=== PATIENT | female | born 2000 | race Caucasian/White ===

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

== ENCOUNTER → 2022-08-30 | Outpatient (CLI) | payer OTHER, SELFPAY | END | disposition home or self-care (01) | PROVIDERS: PCP Family Medicine; Visit Provider Obstetrics & Gynecology | DX: Z34.00 Encounter for supervision of normal first pregnancy, unspecified trimester (principal) | CPT/HCPCS: 87086 ==

== ENCOUNTER → 2022-09-29 | Outpatient (CLI) | payer OTHER, SELFPAY ==
[2022-09-29 13:53] LABS: Absolute Lymphocyte Count 3.16 X10^3/uL (0.83-4.51); Absolute Neutrophil Count 7.4 X10^3/uL (2.0-7.7); Basophil# 0.04 X10^3/uL; Basophil% 0.3 % (0-1); Eosinophil# 0.53 X10^3/uL; Eosinophils% 4.5 % (0-5); Hematocrit 38.1 % (37-47); Hemoglobin 12.8 g/dL (12.0-15.0); Lymphocyte # 3.16 X10^3/ul (0.83-4.51); Lymphocyte % 26.5 % (19-41); Mean Corp Hgb Conc 33.6 g/dL (32-36); Mean Corpuscular Hgb 31.7 pg (27.0-32.0); Mean Corpuscular Volume 94.3 fL (81-99); Mean Platelet Vol. 9.8 fl (6.2-12.0); Monocyte# 0.79 X10^3/uL; Monocyte% 6.6 % (0-10); NRBC Flagged by Analyzer 0 % (0-5); Neutrophil # 7.35 X10^3/uL (2.7-7.7); Neutrophil % 61.8 % (47-70); Platelet Count 233 K/mm3 (150-450); RBC Distribution Width CV 12.7 % (11.6-14.6); RBC Distribution Width SD 43.3 fl (35.1-43.9); Red Blood Count 4.04 M/mm3 (4.2-5.4); White Blood Count 11.9 K/mm3 (4.4-11.0)
[2022-09-29 14:55] LABS: HIV - WCH Non-Reactive (Nonreactive); Hepatitis B Surface Antigen Non-Reactive (Nonreactive); Hepatitis C Antibody Non-Reactive (Nonreactive); Rubella IgG Reactive (Nonreactive); Syphilis Antibodies Non-reactive
== END | disposition home or self-care (01) ==
LOC: PAVLAB 13:29
PROVIDERS: PCP Family Medicine; Referring Provider Obstetrics & Gynecology; Visit Provider Obstetrics & Gynecology
DX: Z34.00 Encounter for supervision of normal first pregnancy, unspecified trimester (principal)
CPT/HCPCS: 36415; 85025; 86703; 86762; 86780; 86803; 86850; 86900; 86901; 87340

== ENCOUNTER → 2022-11-09 | Outpatient (CLI) | payer SELFPAY, OTHER ==
--- NOTE | 2022-11-09 12:33 | US_ITS ---
STUDY: SECOND AND THIRD TRIMESTER OBSTETRICAL ULTRASOUND REASON FOR EXAM: Female, 22 years old anatomy LMP: 06/26/2022 TECHNIQUE: Transabdominal and Transvaginal TECHNICAL QUALITY: Adequate. PRIOR ULTRASOUND: None. FINDINGS: There is a single intrauterine fetus. The fetus is in a breech presentation. There is demonstrated cardiac activity with a heart rate of 133 bpm. There is a normal amniotic fluid volume. The largest amniotic fluid pocket measures 4.1 cm x 3 cm. The amniotic fluid index (WHITNEY) is within normal limits. The placenta is posterior in location and is not low lying. There are Grade 0 placental changes. The cervix measures 3.8 cm in length. The bilateral adnexal regions are normal. BIOMETRY: BPD: 4.1 cm: 18 weeks, 3 days HC: 16.1 cm: 18 weeks, 6 days AC: 14.3 cm: 19 weeks, 5 days FL: 2.64 cm: 18 weeks, 0 days CI: 72% FL/BPD: 64% FL/HC: FL/AC: 18% HC/AC: 1.12 age by current US: 19 weeks, 0 days. TAWANNA by current US: 04/05/2023. Estimated weight: 263 grams, +/- 39 grams, 18 %. Age by LMP: 19 weeks, 3 days. TAWANNA by LMP: 04/02/2023. ANATOMY: Gender: Cranium: Normal lateral ventricles. Normal choroid plexus. Normal cerebellum. Normal cisterna magna. Normal face, nose and lips. Chest: Normal 4-chamber heart. Abdomen/Pelvis: Normal diaphragm. Normal stomach. Normal abdominal wall. Normal cord insertion. Normal 3 vessel cord. Normal kidneys. Normal bladder. Spine: Normal cervical spine. Normal thoracic spine. Normal lumbar spine. Normal sacrum. Extremities: Normal bilateral upper extremities. Normal bilateral lower extremities. IMPRESSION: Single live intrauterine gestation with a mean gestational age of 19 weeks. Electronically Signed: Arnulfo Angulo MD at 15:03 EST , STUDY: FIRST TRIMESTER OBSTETRICAL ULTRASOUND REASON FOR EXAM: Female, 22 years old . Cervical length. LMP: 06/26/2022 TECHNIQUE: Transvaginal TECHNICAL QUALITY: Adequate. PRIOR ULTRASOUND: None. FINDINGS: Cervical length measures 3.8 cm. US/OB Anatomy Scan IMPRESSION: Cervical length measures 3.8 cm. Electronically Signed: Arnulfo Angulo MD at 15:04 EST ,
== END | disposition home or self-care (01) ==
PROVIDERS: PCP Family Medicine; Visit Provider Obstetrics & Gynecology
DX: Z34.00 Encounter for supervision of normal first pregnancy, unspecified trimester (principal); Z3A.19 19 weeks gestation of pregnancy
CPT/HCPCS: 76805; 76817

== ENCOUNTER → 2023-01-09 | Outpatient (CLI) | payer OTHER, SELFPAY ==
[2023-01-09 10:51] LABS: Absolute Lymphocyte Count 1.83 X10^3/uL (0.83-4.51); Absolute Neutrophil Count 7.1 X10^3/uL (2.0-7.7); Basophil# 0.02 X10^3/uL; Basophil% 0.2 % (0-1); Eosinophils% 3.1 % (0-5); Hematocrit 36.8 % (37-47); Hemoglobin 12.1 g/dL (12.0-15.0); Lymphocyte # 1.83 X10^3/ul (0.83-4.51); Lymphocyte % 18.6 % (19-41); Mean Corp Hgb Conc 32.9 g/dL (32-36); Mean Corpuscular Hgb 33.1 pg (27.0-32.0); Mean Corpuscular Volume 100.5 fL (81-99); Mean Platelet Vol. 10.2 fl (6.2-12.0); Monocyte# 0.54 X10^3/uL; Monocyte% 5.5 % (0-10); NRBC Flagged by Analyzer 0 % (0-5); Neutrophil # 7.07 X10^3/uL (2.7-7.7); Platelet Count 230 K/mm3 (150-450); RBC Distribution Width CV 13.3 % (11.6-14.6); RBC Distribution Width SD 49.2 fl (35.1-43.9); Red Blood Count 3.66 M/mm3 (4.2-5.4); White Blood Count 9.8 K/mm3 (4.4-11.0)
[2023-01-09 11:24] LABS: Glucose Challenge Gest 1H 50g 91 mg/dL (70-140)
[2023-01-09 11:54] LABS: HIV - WCH Non-Reactive (Nonreactive); Syphilis Antibodies Non-reactive
== END | disposition home or self-care (01) ==
LOC: PAVLAB 10:30
PROVIDERS: PCP Family Medicine; Referring Provider Advanced Practice Midwife; Visit Provider Advanced Practice Midwife
DX: Z34.92 Encounter for supervision of normal pregnancy, unspecified, second trimester (principal); Z3A.25 25 weeks gestation of pregnancy
CPT/HCPCS: 36415; 82950; 85025; 86703; 86780

== ENCOUNTER → 2023-03-07 | Outpatient (CLI) | payer OTHER, SELFPAY | END | disposition home or self-care (01) | LOC: LABSPEC 14:00 | PROVIDERS: PCP Family Medicine; Referring Provider Obstetrics & Gynecology; Visit Provider Obstetrics & Gynecology | DX: Z34.93 Encounter for supervision of normal pregnancy, unspecified, third trimester (principal); Z3A.36 36 weeks gestation of pregnancy | CPT/HCPCS: 87081 ==

== ENCOUNTER 2023-04-06 18:10 | Inpatient (IN) | payer SELFPAY, OTHER ==
[2023-04-06] VITALS (25 sets, daily range): BP systolic 107–141; BP diastolic 58–84; PULSE 82–100; TEMP 36.6–37.4; O2SAT 93–98; BMI 26.9
[2023-04-06 18:06] LABS: ROM Internal Control Test YES-OK TO RESULT pt. (Internal QC); ROM Patient Test POSITIVE (Negative)
[2023-04-06 18:07] LABS: Record Kit Lot#, ROM+ K1374
--- NOTE | 2023-04-06 18:25 | HP.PCM.OB_ITS ---
HPI - General General Date of Admission: 04/06/23 HPI Narrative DELPHINE SHAH, is a 23 F who presents in early labor with SROM clear fluid no vb admits good fm irregular ctx Maternal Data Information TAWANNA Calculator Estimated Delivery Date Method Current WG Current Estimate 04/02/23 LMP (Certain) 40w 4d PFSH PFSH Medical History Family hx of colon cancer Home Medications vitamins no.163-iron bis-gly 20 mg-folate no.10 1 mg tablet (PNV Tabs 20-1) tab PO 08/18/22 [History Last Taken Unknown] esomeprazole magnesium 20 mg capsule,delayed release 20 mg PO DAILY 09/29/22 [History Last Taken Unknown] Allergy/AdvReac Type Severity Reaction Status Date / Time No Known Allergies Allergy Verified 04/06/23 08:01 Family History Grandfather Colon cancer, Onset Age: 78 Surgical History History of tonsillectomy and adenoidectomy Hx of wisdom tooth extraction Social History adopted: No household members: spouse housing: house current occupational status: employed current occupation: [employer] pets and animals: No history of recent travel: No sexually active: Yes Smoking Status: Never smoker alcohol intake: never substance use type: does not use well-balanced diet: daily or most days caffeine: Yes Type: coffee Number of servings: 1 eating out: rarely or never during the past year weight has: remained stable what type of physical activity do you participate in: walking frequency: 3-4 times per week duration: 30-45 minutes/day melisa/mandaen: [employer] seatbelt use: always do you feel safe at home: Yes additional social history: - Maksim- [place] History 1 Elective abortions Hx Para 0 Spontaneous abortions Hx # Term Pregnancies Ectopic pregnancies Hx # Pregnancies Multiple births # of living children Visit Details Expected Delivery Route/Plan Labor Preferences- CB/BF classes: BF class, encouraged in February labor support person: demi Schaeffer(mom), lillian(dad) labor intervention preferences: low intervention pain management options preferred: natural- tub room if possible cut cord/dad catch: no : yes PP control planned: discussed discussed possible routes of delivery and associated risks: if C/S-requesting skin to skin in OR special requests: Counter Top Assembler at labor/delivery Plans Covid status: declines Flu vaccine: declines Tdap vaccine: declines Rhogam: NA LARC form signed: yes Problem list reviewed and updated with the most current plan of care details and appropriate orders placed. Relevant counseling for the gestational age provided. Continue routine care and follow up unless otherwise noted in visit notes/problem list details OB Flowsheet Initial Weight: Not Recorded Date -?-?-?-?--?-?-?-?-?-?-?-?- EGA Weight BP Urine Prot -?-?-?-?-?-?-?-?-?-?-?-?- Glucose FHR FuHt Pres Dilation -?-?-?-?-?-?-?-?-?-?-?-?- Effaced St Visit Note 08/30/22 -?-?-?-?-?-?-?-?-?-?-?-?- 9w 2d 125 lb 2 oz 121/77 -?-?-?-?-?-?-?-?-?-?-?-?- 178 -?-?-?-?-?-?-?-?-?-?-?-?- JV- CRL consistn ent with LMP. 10/28/22 -?-?-?-?-?-?-?-?-?-?-?-?- 17w 5d 128 lb 6 oz 109/72 Nega tive -?-?-?-?-?-?-?-?-?-?-?-?- Negative 156 -?-?-?-?-?-?-?-?-?-?-?-?- LC-no ethan/chel leung has anatomy scan for [facility].doing well. 11/24/22 -?-?-?-?-?--?-?-?-?-?-?-?- 21w 4d 138 lb 109/77 Negative -?-?-?-?-?-?-?-?-?-?-?-?- Negative 140 -?-?-?-?-?-?-?-?-?-?-?-?- JV- anatomy ultr asound reviewed. no lof, vaginal bleeding or cramping. + fm. 12/20/22 -?-?-?-?-?-?-?-?-?-?-?-?- 25w 2d 140 lb 6 oz 119/79 Nega tive -?-?-?-?-?-?-?-?-?-?-?-?- Negative 140 25 -?-?-?-?-?-?-?-?-?-?-?-?- KW-no lof, vb, o r cramping. +FM. reports bilateral rib pain when resting but is better when up moving. Denies visual disturbances. doing well. plans to do glucose test at next visit. 01/09/23 -?-?-?-?-?-?-?-?-?-?-?-?- 28w 1d 142 lb 7 oz 102/68 Nega tive -?-?-?-?-?-?-?-?-?-?-?-?- Negative 137 27 -?-?-?-?-?-?-?-?-?-?-?-?- MH-No Vb, LOF. G ood FM. 28 wk labs, larc. Gianni tdap. 01/24/23 -?-?-?-?-?-?-?-?-?-?-?-?- 30w 2d 150 lb 122/81 122/81 -?-?-?-?-?-?-?-?-?-?-?-?- 132 39 -?-?-?-?-?-?-?-?-?-?-?-?- LC- no vb/lof/ct x. good fm. 02/07/23 -?-?-?-?-?-?-?-?-?-?-?-?- 32w 2d 148 lb 8 oz 107/83 Nega tive -?-?-?-?-?-?-?-?-?-?-?-?- Negative 145 31 -?-?-?-?-?-?-?-?-?-?-?-?- KW- No vb/lof/ct x. good fm. no concerns 02/21/23 -?-?-?-?-?-?-?-?-?-?-?-?- 34w 2d 150 lb 115/74 Negative -?-?-?-?-?-?-?-?-?-?-?-?- Negative 141 33 Cephalic -?-?-?-?-?-?-?-?-?-?-?-?- LC- no vb/ctx/lo f. good fm. no concerns today. 03/07/23 -?-?-?-?-?-?-?-?-?-?-?-?- 36w 2d 157 lb 4 oz 117/73 Nega tive -?-?-?-?-?-?-?-?-?-?-?-?- Negative 140 36 Cephalic 0 -?-?-?-?-?-?-?-?-?-?-?-?- SM- no vb lof go od fm n oreuglar ctx gbs today 03/16/23 -?-?-?-?-?-?-?-?-?-?-?-?- 37w 4d 156 lb 109/76 Positive -?-?-?-?-?-?-?-?-?-?-?-?- Negative 132 36 Cephalic -?-?-?-?-?-?-?-?-?-?-?-?- LC- no vb/ctx/lo f. good fm. biked 10 miles, concentrated urine. is PO hydrating. BP stable. PEC s/sx reviewed. 03/23/23 -?-?-?-?-?-?-?-?-?-?-?-?- 38w 4d 159 lb 107/72 Negative -?-?-?-?-?-?-?-?-?-?-?-?- Negative 128 38 Cephalic -?-?-?-?-?-?-?-?-?-?-?-?- LC- no lof/ctx/v b. good fm. reviewed iol vs expectant management, would like to continue past 41 weeks currently. LC- no lof/ctx/vb. good fm. reviewed iol vs expectant management, reviewed testing after 41 weeks. 03/30/23 -?-?-?-?-?-?-?-?-?-?-?-?- 39w 4d 155 lb 9.6 oz 116/75 -?-?-?-?-?-?-?-?-?-?-?-?- 120 39 Cephalic 1 -?-?-?-?-?-?-?-?-?-?-?-?- 40 -3 LC- no lof /vb/consistent ctx. good fm. membrane sweep today. 04/06/23 -?-?-?-?-?-?-?-?-?-?-?-?- 40w 4d 159 lb 6 oz 111/78 Nega tive -?-?-?-?-?-?-?-?-?-?-?-?- Negative 135 39 Cephalic 2 -?-?-?-?-?-?-?-?-?-?-?-?- 70 -2 LC- no lof /vb/ctx. good fm. IOL schedule for monday for 41 weeks. 04/06/23 -?-?-?-?-?-?-?-?-?-?-?-?- 40w 4d 157 lb 112/69 -?-?-?-?-?-?-?-?-?-?-?-?- -?-?-?-?-?-?-?-?-?-?-?-?- NST FHR Rate Baby A Baseline: 130 Variability:: Moderate Accelerations:: 15 x 15 Decelerations:: None NST Reactive:: Yes FHR Category:: Category I Uterine Activity:: irregular ROS Constitutional Constitutional: Reports systems reviewed and no addt'l complaints, except as documented Eyes Eyes: Denies change in vision ENT HEENT: Reports systems reviewed and no addt'l complaints, except as documented; Denies headache(s) Cardiovascular Cardiovascular: Reports systems reviewed and no addt'l complaints, except as documented; Denies chest pain or dyspnea Respiratory/Chest Respiratory/Chest: Reports systems reviewed and no addt'l complaints, except as documented Gastrointestinal Gastrointestinal: Reports systems reviewed and no addt'l complaints, except as documented; Denies abdominal pain Genitourinary Genitourinary: Reports systems reviewed and no addt'l complaints, except as documented, contractions Details: present (irregular) and movement Details: present; Denies dysuria or genital lesions Musculoskeletal Musculoskeletal: Reports systems reviewed and no addt'l complaints, except as documented Neurologic Neurologic: Reports systems reviewed and no addt'l complaints, except as documented Endocrine Endocrinology: Reports systems reviewed and no addt'l complaints, except as documented Vital Signs Vital Signs Vital Signs: 04/06/23 17:31 04/06/23 17:31 04/06/23 17:31 Temperature Temperature Source Tympanic Pulse Rate 86 Blood Pressure 112/69 BP Systolic 112 BP Diastolic 69 04/06/23 17:31 Temperature 97.9 F Temperature Source Pulse Rate Blood Pressure BP Systolic BP Diastolic Weight Weight: 157 lb Body Mass Index (BMI) 26.9 Physical Exam Const alert, oriented x3, no apparent distress and healthy appearing HEENT normocephalic and moist oral mucous membranes Head and Scalp: atraumatic Neck full ROM, no lymphadenopathy, supple and thyroid normal General: trachea midline Lymph Lymphatic: no lymphadenopathy noted Chest inspection of chest normal Resp normal respiratory effort Cardio regular rate GI normal to inspection, nondistended, normoactive bowel sounds, soft to palpation and non-tender Inspection: gravid external exam normal Manual OB Exam: estimated gestational size appropriate, presentation cephalic, dilated, effaced and station Extremity normal to inspection General Extremity: Negative for edema Skin no rashes or lesions noted Neuro no focal motor deficits and deep tendon reflexes 2+ bilaterally Motor Exam: strength 5/5 throughout and clonus absent Psych mental status grossly normal Labs Labs Labs: Blood Type A POSITIVE Antibody Screen NEGATIVE Hct 36.8 % (37-47) L Hgb 12.1 g/dL (12.0-15.0) Obstetrics US Syphilis Total Ab Non-reactive Rubella IgG Antibody Reactive (Nonreactive) Hep Bs Antigen Non-Reactive (Nonreactive) HIV 1&2 Antibody Non-Reactive (Nonreactive) Glucose 1 Hr 50 gm 91 mg/dL (70-140) Assessment & Plan (1) Supervision of normal first : COMMENT: [id number], TAWANNA 04/02/23, Maksim (2) : QUALIFIERS: Weeks of gestation: 40 weeks Qualified Code(s): Z3A.40 - 40 weeks gestation of COMMENT: GBS neg, declined NIPT & Carrier testing, 11/10 anatomy (3) Seasonal allergies: COMMENT: spring & summer PLAN: Plan srom clear fluid Patient presents ial exp management. Pain management: prefers minimal intervention. GBS neg. Management of any complications: none I have reviewed the [facility] and made any clinically relevant updates.
[2023-04-06 18:53] LABS: Absolute Lymphocyte Count 2.13 X10^3/uL (0.83-4.51); Absolute Neutrophil Count 7.9 X10^3/uL (2.0-7.7); Basophil# 0.03 X10^3/uL; Basophil% 0.3 % (0-1); Eosinophil# 0.31 X10^3/uL; Eosinophils% 2.7 % (0-5); Hematocrit 37.7 % (37-47); Hemoglobin 12.5 g/dL (12.0-15.0); Lymphocyte # 2.13 X10^3/ul (0.83-4.51); Lymphocyte % 18.8 % (19-41); Mean Corp Hgb Conc 33.2 g/dL (32-36); Mean Corpuscular Hgb 32.4 pg (27.0-32.0); Mean Corpuscular Volume 97.7 fL (81-99); Mean Platelet Vol. 11.1 fl (6.2-12.0); Monocyte# 0.99 X10^3/uL; Monocyte% 8.7 % (0-10); NRBC Flagged by Analyzer 0 % (0-5); Neutrophil # 7.85 X10^3/uL (2.7-7.7); Neutrophil % 69.1 % (47-70); Platelet Count 221 K/mm3 (150-450); RBC Distribution Width CV 12.8 % (11.6-14.6); RBC Distribution Width SD 45.4 fl (35.1-43.9); Red Blood Count 3.86 M/mm3 (4.2-5.4); White Blood Count 11.4 K/mm3 (4.4-11.0)
[2023-04-06 19:28] LABS: Syphilis Antibodies Non-reactive
[2023-04-06] MEDS: LACTATED RINGERS 500 ML 999 ML IV (21:50)
[2023-04-06] MEDS: Lactated Ringers 1,000 ML 200 ML IV (22:21)
[2023-04-06] MEDS: fentaNYL-bupivacaine (epidural) 100 ML BAG EPIDURAL (22:54)
[2023-04-06 23:18] LABS: Chlamydia Trachomatis by PCR Negative (Negative); Neisserai gonorrhoeae by PCR Negative (Negative); Probe Check PASS; Sample Adequacy Control PASS; Specimen Processing Control PASS
[2023-04-07] VITALS (18 sets, daily range): BP systolic 89–123; BP diastolic 50–70; PULSE 66–117; RESP 14–18; TEMP 36.3–37.8; O2SAT 92–99
[2023-04-07] MEDS: Oxytocin 15 Units/NS 250ml 15 UNITS/250 ML IV.SOLN 83 UNITS IV (00:31)
[2023-04-07] MEDS: Oxytocin 10 UNITS/ML Vial IM (00:32)
[2023-04-07] MEDS: Methylergonovine 0.2 MG/ML Ampul IM (00:40)
--- NOTE | 2023-04-07 00:49 | EX.PCM.OBRPT ---
Assessment & Plan (1) Supervision of normal first : COMMENT: [id number], TAWANNA 04/02/23, Maksim (2) : QUALIFIERS: Weeks of gestation: 40 weeks Qualified Code(s): Z3A.40 - 40 weeks gestation of COMMENT: GBS neg, declined NIPT & Carrier testing, 11/10 nl anatomy (3) Seasonal allergies: COMMENT: spring & summer (4) Active labor at term: (5) SROM (spontaneous rupture of membranes): (6) Vaginal delivery: COMMENT: SM IAL 40 boy [place] Maternal Data Information TAWANNA Calculator Estimated Delivery Date Method Current WG Current Estimate 04/02/23 LMP (Certain) 40w 5d Vaginal Delivery Operative Information Pre-Operative Diagnosis: see a/p diagnoses Post-Operative Diagnosis: same Surgery / Procedure Performed: Spontaneous Vaginal Delivery Type of Anesthesia: Epidural Special Medications: none Estimated Blood Loss: 200 Fluids Replaced: crystalloid Findings Description of Procedure: Patient began pushing and delivered the head in the TRENA presentation. The head was delivered atraumatically . The anterior and posterior shoulders delivered without complication followed by the rest of the infant and the infant was placed on the maternal abdomen. Delayed cord clamping was employed for approximately 60 seconds. Cord was clamped and cut and gentle traction was applied to the cord and the placenta delivered spontaneously immediately following it was noted to be intact with three-vessel cord. The perineum and vagina were inspected and noted to have a second degree perineal laceration which was repaired in the usual fashion with 3-0 vicryl rapide. . EBL was 500 with some mild atony treated with pitocin massage and methergine. Patient and tolerated delivery well. Amniotic Fluid Description: Clear Placental Delivery Description: Spontaneous Placenta Disposition: [facility] Cord Vessel Description: 3 Vessels Cord Entanglement: None Delayed Cord Clamping: Yes Post Vaginal Delivery Medications Given After Delivery: IV Pitocin Episiotomy Description: None Complication Complications: None Procedures Urinary/Genital [id number]: [id number] Vaginal Delivery global pk
--- NOTE | 2023-04-07 00:54 | DCINST_ITS ---
Discharge Instructions Diet Discharge Diet: No restrictions Activity Discharge Activity: Return to Normal Activity, May Drive, May Shower and May Take a Tub Bath (in 4 weeks) May resume sexual activity in: 6-8 weeks (after seen by OB provider) Weight Bearing Status: Full weight bearing Lifting Restrictions: none Dressing / Incision Call your doctor if you observe: Fever of 101 or Higher, Inability to urinate, Using more than 1 pad per hour (for more than 2 hours in a row or more), Shortness of breath, Dizziness, Chest pain and - (headache not controlled with tylenol, change in vision) Follow Up Care When: in 6 weeks for visit, call the office to make the appointment. If you had elevated blood pressures call the office to be seen within 1 week. Test Results: Test results from this visit will be discussed in further detail at your follow- up appointment, if applicable. Discharge Plan Admission Admit Date/Time: 04/06/23 18:10 Attending Provider: Sagrario Saenz Primary Care Provider: Hemanth Lott Discharge Orders/Prescriptions Prescriptions: No Action PNV Tabs 20-1 20 mg iron- 1 mg tablet PO esomeprazole magnesium 20 mg capsule,delayed release(DR/EC) 20 mg PO DAILY Referrals / Follow Up: Hemanth Lott MD [Primary Care Provider] -
[2023-04-07] MEDS: 0.9% Saline Lock 10 ML Syringe IV (03:35)
[2023-04-07] MEDS: Benzocaine/Lanolin/Aloe Vera 1 SPRAY EACH TOPICAL (12:46)
[2023-04-07] MEDS: Naproxen 500 MG Tablet PO (12:47)
[2023-04-07] MEDS: Acetaminophen 500 MG Tablet 1000 MG PO (17:06)
[2023-04-08 01:20] VITALS: BP 88/46; PULSE 75; RESP 16; TEMP 36.1; O2SAT 97
[2023-04-08 04:20] VITALS: BP 94/46; PULSE 65; RESP 17; TEMP 36.1; O2SAT 98
--- NOTE | 2023-04-08 08:14 | PCM.PN.OB ---
Subjective Subjective Patient doing well without complaints. Tolerating PO. Ambulating and voiding without difficulty. Feeding well. Denies chest pain, shortness of breath, calf pain/swelling, fevers, chills, lightheadedness. Objective Data Objective Data Vital Signs: Vital Signs Temp Pulse Resp BP Pulse Ox O2 Del Method 97 F L 65 17 94/46 L 98 Room Air 04/08/23 04:20 04/08/23 04:20 04/08/23 04:20 04/08/23 04:20 04/08/23 04:20 04/08/23 04:20 Oxygen Delivery Method Room Air Weight: 157 lb Body Mass Index (BMI) 26.9 Intake & Output: Intake and Output for Last 24 Hours 04/06/23 04/07/23 04/08/23 23:59 23:59 23:59 Intake Total 500 / 500 683.33 / 683.33 Output Total 200 / 200 1600 / 1600 Balance 300 / 300 -916.67 / -916.67 Lab / Micro Data Result Diagrams: 04/06/23 18:25 Physical Exam Const alert, oriented x3 and no apparent distress Lymph Lymphatic: no lymphadenopathy noted Resp normal respiratory effort, normal air movement and no retractions Cardio regular rate and regular rhythm GI normal to inspection, nondistended, normoactive bowel sounds GI Narrative: fundus 1 below u, firm. moderate lochia, no clots. Extremity normal to inspection and full ROM Skin no rashes or lesions noted and no wounds Neuro oriented x3 Psych mental status grossly normal Assessment & Plan (1) Vaginal delivery: COMMENT: IAL 40 boy [place] PLAN: s/p PPD # 1 1. routine post delivery care 2. breast feeding- support given 3. rh positive 4. rubella immune 5. d/c home today
[2023-04-08 09:11] VITALS: BP 100/58; PULSE 85; RESP 14; TEMP 36.3; O2SAT 98
== END 2023-04-08 12:15 | disposition home or self-care (01) | DRG 807 ==
LOC: WPOUT 18:23 → WP 18:23
PROVIDERS: Admitting Provider Obstetrics & Gynecology; PCP Family Medicine; Visit Provider Obstetrics & Gynecology
DX: O70.1 Second degree perineal laceration during delivery (principal); Z37.0 Single live birth; J30.2 Other seasonal allergic rhinitis; O48.0 Post-term pregnancy; Z3A.40 40 weeks gestation of pregnancy; O99.52 Diseases of the respiratory system complicating childbirth; Z80.0 Family history of malignant neoplasm of digestive organs
CPT/HCPCS: 59025; 59050; 84112; 85025; 86780; 86850; 86900; 86901; 87491; 87591; 99221; J7120; A4216; G0378

== ENCOUNTER → 2024-05-31 | Outpatient (CLI) | payer OTHER, SELFPAY ==
[2024-06-09 09:45] LABS: HPV Reflexed? NOT INDICATED
== END | disposition home or self-care (01) ==
LOC: LABSPEC 16:03
PROVIDERS: PCP Family Medicine; Referring Provider Registered Nurse; Visit Provider Registered Nurse
DX: Z12.4 Encounter for screening for malignant neoplasm of cervix (principal)
CPT/HCPCS: 88175; G0145

== ENCOUNTER → 2024-08-29 | Outpatient (CLI) | payer OTHER, SELFPAY ==
[2024-08-29 10:17] LABS: Absolute Lymphocyte Count 2.54 X10^3/uL (0.83-4.51); Absolute Neutrophil Count 4.8 X10^3/uL (2.0-7.7); Basophil# 0.02 X10^3/uL; Basophil% 0.2 % (0-1); Eosinophil# 0.25 X10^3/uL; Hematocrit 40.1 % (37-47); Lymphocyte # 2.54 X10^3/ul (0.83-4.51); Lymphocyte % 30.8 % (19-41); Mean Corp Hgb Conc 32.4 g/dL (32-36); Mean Corpuscular Hgb 30.7 pg (27.0-32.0); Mean Corpuscular Volume 94.8 fL (81-99); Mean Platelet Vol. 9.7 fl (6.2-12.0); Monocyte# 0.64 X10^3/uL; Monocyte% 7.7 % (0-10); NRBC Flagged by Analyzer 0 % (0-5); Neutrophil % 58.2 % (47-70); Platelet Count 265 K/mm3 (150-450); RBC Distribution Width SD 44.7 fl (35.1-43.9); Red Blood Count 4.23 M/mm3 (4.2-5.4); White Blood Count 8.3 K/mm3 (4.4-11.0)
[2024-08-29 11:20] LABS: HIV - WCH Non-Reactive (Nonreactive); Hepatitis B Surface Antigen Non-Reactive (Nonreactive); Hepatitis C Antibody Non-Reactive (Nonreactive); Rubella IgG Reactive (Nonreactive); Syphilis Antibodies Non-reactive
[2024-08-30 20:08] LABS: Chlamydia By Nucleic Acid AMP Negative (Negative); Gonococcus By Nucleic Acid AMP Negative (Negative)
[2024-09-04 16:50] LABS: HPV Reflexed? NOT INDICATED
== END | disposition home or self-care (01) ==
LOC: WOBLAB 09:25
PROVIDERS: Referring Provider Advanced Practice Midwife; Visit Provider Advanced Practice Midwife
DX: Z34.90 Encounter for supervision of normal pregnancy, unspecified, unspecified trimester (principal)
CPT/HCPCS: 36415; 85025; 86703; 86762; 86780; 86803; 86850; 86900; 86901; 87086; 87088; 87340; 87491; 87591; 88175; G0145

== ENCOUNTER → 2024-11-13 | Outpatient (CLI) | payer SELFPAY, OTHER ==
--- NOTE | 2024-11-13 12:03 | US_ITS ---
STUDY: SECOND AND THIRD TRIMESTER OBSTETRICAL ULTRASOUND REASON FOR EXAM: Female, 24 years old anatomy LMP: June 26, 2024. TECHNIQUE: Transabdominal and Transvaginal TECHNICAL QUALITY: Adequate. PRIOR ULTRASOUND: None. FINDINGS: There is a single intrauterine fetus. The fetus is in a breech presentation. There is demonstrated cardiac activity with a heart rate of 141 bpm. There is a normal amniotic fluid volume. The largest amniotic fluid pocket measures 4.2 cm. The amniotic fluid index (WHITNEY) is within normal limits. The placenta is anterior in location and is not low lying. There are Grade 0 placental changes. The cervix measures 4.1 cm in length. The bilateral adnexal regions are normal. BIOMETRY: BPD: 4.7 cm: 20 weeks, 2 days: 62% HC: 17.8 cm: 20 weeks, 2 days: 55% AC: 15.1 cm: 20 weeks, 2 days: 54% FL: 3.1 cm: 19 weeks, 5 days: 33% CI: 77% FL/BPD: 67% FL/HC: 18% FL/AC: 21% HC/AC: 1.18 age by current US: 20 weeks, 2 days. TAWANNA by current US: March 31, 2025. Estimated weight: 337 grams, +/- 50 grams, 51% %. Age by LMP: 20 weeks, 0 days. TAWANNA by LMP: April 02, 2025. ANATOMY: Gender: Indeterminant Cranium: Normal lateral ventricles. Normal choroid plexus. Normal cerebellum. Normal cisterna magna. Normal face, nose and lips. Chest: Normal 4-chamber heart. Abdomen/Pelvis: Normal diaphragm. Normal stomach. Normal abdominal wall. Normal cord insertion. Normal 3 vessel cord. Normal kidneys. Normal bladder. Spine: Normal cervical spine. Normal thoracic spine. Normal lumbar spine. The sacrum is not well visualized due to position. Extremities: Normal bilateral upper extremities. Normal bilateral lower extremities. US/OB Anatomy Scan IMPRESSION: Single live intrauterine gestation with mean gestational age of 20 weeks and 2 days. Electronically Signed: Arnulfo Angulo MD at 15:42 EST ,
== END | disposition home or self-care (01) ==
LOC: OPUS 12:02
PROVIDERS: PCP Family Medicine; Referring Provider Advanced Practice Midwife; Visit Provider Advanced Practice Midwife
DX: Z34.90 Encounter for supervision of normal pregnancy, unspecified, unspecified trimester (principal)
CPT/HCPCS: 76805

== ENCOUNTER → 2024-12-27 | Outpatient (CLI) | payer OTHER, SELFPAY ==
[2024-12-27 10:08] LABS: Absolute Lymphocyte Count 2.17 X10^3/uL (0.83-4.51); Absolute Neutrophil Count 5.2 X10^3/uL (2.0-7.7); Basophil# 0.02 X10^3/uL; Basophil% 0.2 % (0-1); Eosinophil# 0.12 X10^3/uL; Eosinophils% 1.5 % (0-5); Hematocrit 37.9 % (37-47); Hemoglobin 12.4 g/dL (12.0-15.0); Lymphocyte # 2.17 X10^3/ul (0.83-4.51); Lymphocyte % 27.1 % (19-41); Mean Corp Hgb Conc 32.7 g/dL (32-36); Mean Corpuscular Volume 97.7 fL (81-99); Mean Platelet Vol. 9.6 fl (6.2-12.0); Monocyte# 0.44 X10^3/uL; Monocyte% 5.5 % (0-10); NRBC Flagged by Analyzer 0 % (0-5); Neutrophil # 5.24 X10^3/uL (2.7-7.7); Neutrophil % 65.3 % (47-70); Platelet Count 211 K/mm3 (150-450); RBC Distribution Width CV 13.2 % (11.6-14.6); RBC Distribution Width SD 47.2 fl (35.1-43.9); Red Blood Count 3.88 M/mm3 (4.2-5.4)
[2024-12-27 11:39] LABS: Glucose Challenge Gest 1H 50g 136 mg/dL; HIV Nonreactive (Nonreactive); Syphilis Antibodies Nonreactive (Nonreactive)
== END | disposition home or self-care (01) ==
LOC: BWCLAB 09:52
PROVIDERS: PCP Family Medicine; Referring Provider Obstetrics & Gynecology; Visit Provider Obstetrics & Gynecology
DX: Z34.90 Encounter for supervision of normal pregnancy, unspecified, unspecified trimester (principal); N89.8 Other specified noninflammatory disorders of vagina
CPT/HCPCS: 36415; 82950; 85025; 86703; 86780; 87070; 87205

== ENCOUNTER → 2024-12-31 | Outpatient (CLI) | payer OTHER, SELFPAY ==
[2024-12-31 08:51] LABS: Glucose GTT-Gestation. Fasting 109 mg/dL (<105)
[2024-12-31 11:00] LABS: Glucose GTT-Gestational 1 Hr 160 mg/dL (<190)
[2024-12-31 12:49] LABS: Glucose GTT-Gestational 2 Hr 91 mg/dL (<165)
[2024-12-31 13:11] LABS: Glucose GTT-Gestational 3 Hr 56 L (<145)
== END | disposition home or self-care (01) ==
LOC: LAB 07:59
PROVIDERS: PCP Family Medicine; Referring Provider Registered Nurse; Visit Provider Registered Nurse
DX: O99.810 Abnormal glucose complicating pregnancy (principal); Z3A.00 Weeks of gestation of pregnancy not specified
CPT/HCPCS: 36415; 82951; 82952

== ENCOUNTER → 2025-03-12 | Outpatient (CLI) | payer OTHER, SELFPAY | END | disposition home or self-care (01) | LOC: LABSPEC 16:55 | PROVIDERS: PCP Family Medicine; Referring Provider Advanced Practice Midwife; Visit Provider Advanced Practice Midwife | DX: Z34.90 Encounter for supervision of normal pregnancy, unspecified, unspecified trimester (principal) | CPT/HCPCS: 87081 ==

== ENCOUNTER 2025-04-09 17:50 | Inpatient (IN) | payer SELFPAY, OTHER ==
[2025-04-09] VITALS (47 sets, daily range): BP systolic 106–129; BP diastolic 56–78; PULSE 69–100; RESP 16–18; TEMP 37.3–37.5; O2SAT 93–100; BMI 26.9
[2025-04-09 17:45] LABS: ROM Internal Control Test YES-OK TO RESULT pt. (Internal QC); ROM Patient Test Negative (Negative); Record Kit Lot#, ROM+ K3358
--- NOTE | 2025-04-09 18:08 | HP.PCM.OB_ITS ---
HPI - General General Date of Admission: 04/09/25 HPI Narrative DELPHINE SHAH, is a 25 y/o @ 41 weeks who presents to L&D because she thought her water broke. The nurse who checked her said she did not see fluid and she was 5 cm dilated. 50 minutes later her ROM + test came back negative, a water bag was felt and she was 6.5 cm dilated and 90% effaced. She would like to get in the tub and proceed with intermittent monitoring. She delivered quickly with her last child. Maternal Data Information TAWANNA Calculator Estimated Delivery Date Method Current WG Current Estimate 04/02/25 LMP (Certain) 41w 0d Other Estimates 04/02/25 Ultrasound #1 41w 0d PFSH PFSH Medical History Normal course Vaginal delivery Family hx of colon cancer Home Medications ?Medication ?Instructions ?Recorded ?Last Taken ?Type vitamins no.163-iron tab PO 08/18/22 Unknown History bis-gly 20 mg-folate no.10 1 mg tablet (PNV Tabs 20-1) Allergy/AdvReac Type Severity Reaction Status Date / Time No Known Allergies Allergy Verified 04/09/25 17:08 Family History Grandfather Colon cancer, Onset Age: 78 Father Hyperlipidemia Surgical History History of tonsillectomy and adenoidectomy Hx of wisdom tooth extraction Social History adopted: No household members: spouse and children housing: house number of children: 2 current occupational status: unemployed current occupation: [employer] current occupational exposures/hazards: No pets and animals: Yes pets and animals: dog(s) history of recent travel: No sexually active: Yes Smoking Status: Never smoker alcohol intake: never substance use type: does not use well-balanced diet: daily or most days caffeine: Yes Type: coffee Number of servings: 1 eating out: rarely or never during the past year weight has: remained stable what type of physical activity do you participate in: walking frequency: 1-2 times per week duration: 30-45 minutes/day melisa/hoahaoism: [employer] seatbelt use: always do you feel safe at home: Yes additional social history: : Maksim - [place] History 2 Elective abortions Hx Para 1 Spontaneous abortions Hx # Term Pregnancies 1 Ectopic pregnancies Hx # Pregnancies Multiple births # of living children 1 Past Pregnancies Del. Date Name GA/Weeks Outcome Route Bth Weight Infant Gen Labor Lgth Anesthesia Del Locatn Provider FOB 04/07/23 [place] 40 live - full term 7lbs 15oz Male e pidural [facility] Sagrario Schaeffer Delivery Date: 04/07/23 Last Updated by: Jeanne Ramirez see problem list for complications, and SM IAL 40 boy [place]. Visit Details Expected Delivery Route/Plan Labor Preferences- CB/BF classes: [] labor support person: [] labor intervention preferences: [] pain management options preferred: [] cut cord/dad catch: [] : [] PP control planned: [] discussed possible routes of delivery and associated risks: [] special requests: [] Plans Covid status: [] Flu vaccine: [] Tdap vaccine: [] Rhogam: [] LARC form signed: [] Problem list reviewed and updated with the most current plan of care details and appropriate orders placed. Relevant counseling for the gestational age provided. Continue routine care and follow up unless otherwise noted in visit notes/problem list details OB Flowsheet Initial Weight: 119 lb Date -?-?-?-?-?-?-?-?-?-?-?-?- EGA Weight BP Urine Prot -?-?-?-?-?-?-?-?-?-?-?-?- Glucose FHR FuHt Pres Dilation -?-?-?-?-?-?-?-?-?-?-?-?- Effaced St Visit Note 08/29/24 -?-?-?-?-?-?-?-?-?-?-?-?- 9w 1d 119 lb (+0 oz) 116/78 -?-?-?-?-?-?-?-?--?-?-?-?- 171 -?-?-?-?-?-?-?-?-?-?-?-?- KW- CRL cons wit h dates. Declines NIPT. 10/04/24 -?-?-?-?-?-?-?-?-?-?-?-?- 14w 2d 124 lb 8 oz (+5 lb 8 oz) 116/78 Negative -?-?-?-?-?-?-?-?-?-?-?-?- Negative 147 -?-?-?-?-?-?-?-?-?-?-?-?- KW- no vb/crampi ng. US ordered. movement and fht with US today 11/06/24 -?-?-?-?-?-?-?-?-?-?-?-?- 19w 0d 135 lb 8 oz (+16 lb 8 oz) 110/73 Negative -?-?-?-?-?-?-?-?-?-?-?-?- Negative 145 -?-?-?-?-?-?-?-?-?-?-?-?- KW- no vb/lof/ct x. good fm. US scheduled. 11/28/24 -?-?-?-?-?-?-?-?-?-?-?-?- 22w 1d 139 lb 8 oz (+20 lb 8 oz) 106/71 Negative -?-?-?-?-?-?-?-?-?-?-?-?- Negative 135 -?-?-?-?-?-?-?-?-?-?-?-?- .SM- no vb lof g ood fm nore uglar ctx, has vaginal yeast infection- will give terazole cream 12/27/24 -?-?-?-?-?-?-?-?-?-?-?-?- 26w 2d 144 lb (+25 lb) 109/76 Negative -?-?-?-?-?-?-?-?-?-?-?-?- Negative 138 26 -?-?-?-?-?-?-?-?-?-?-?-?- LC- no vb/ctx/lo f. increased vaginal d/c. speculum exam with thick green curdy discharge. culture collected. likely yeast. desires to start on monistat 7 otc. 01/13/25 -?-?-?-?-?-?-?-?-?-?-?-?- 28w 5d 147 lb 4 oz (+28 lb 4 oz) 114/77 Negative -?-?-?-?-?-?-?-?-?-?-?-?- Negative 130 29 Cephalic -?-?-?-?-?-?-?-?-?-?-?-?- JV- no lof, vagi nal bleeding, or dec fm. we discussed protein rich foods at bedtime. wants to do the rest of her visits at [facility] if possible. 01/29/25 -?-?-?-?-?-?-?-?-?-?-?-?- 31w 0d 150 lb 4 oz (+31 lb 4 oz) 107/73 Negative -?-?-?-?-?-?-?-?-?-?-?-?- Negative 135 31 -?-?-?-?-?-?-?-?-?-?-?-?- KW- no vb/lof/ct x. good fm. doing well but struggling with yeast infections. Monistat helps but does not totally take away. rx sent to pharmacy. 02/12/25 -?-?-?-?-?-?-?-?-?-?-?-?- 33w 0d 152 lb 2 oz (+33 lb 2 oz) 102/68 Negative -?-?-?-?-?-?-?-?-?-?-?-?- Negative 130 33 -?-?-?-?-?-?-?-?-?-?-?-?- KW- no vb/lof/ct x. good fm. no concerns today 02/24/25 -?-?-?-?-?-?-?-?-?-?-?-?- 34w 5d 151 lb 6 oz (+32 lb 6 oz) 111/75 Negative -?-?-?-?-?-?-?-?-?-?-?-?- Negative 135 35 -?-?-?-?-?-?-?--?-?-?-?-?- KW- no vb/lof/ct x. good fm. GBS next week. 03/12/25 -?-?-?-?-?-?-?-?-?-?-?-?- 37w 0d 152 lb 8 oz (+33 lb 8 oz) 104/72 Negative -?-?-?-?-?-?-?-?-?-?-?-?- Negative 130 37 Cephalic 1 -?-?-?-?-?-?-?-?-?-?-?-?- 60 -2 KW- no vb/ lof/ctx. good fm. GBS this week. 03/20/25 -?-?-?-?-?-?-?-?-?-?-?-?- 38w 1d 156 lb 2 oz (+37 lb 2 oz) 113/78 Negative -?-?-?-?-?-?-?-?-?-?-?-?- Negative 125 37 Cephalic -?-?-?-?-?-?-?-?-?-?-?-?- SM- no vb lof go od fm n oreuglar ctx 03/26/25 -?-?-?-?-?-?-?-?-?-?-?-?- 39w 0d 157 lb 6 oz (+38 lb 6 oz) 105/72 Negative -?-?-?-?-?-?-?-?-?-?-?-?- Negative 138 38 Cephalic 2 .5 -?-?-?-?-?-?-?-?-?-?-?-?- 70 -2 KW- no vb/ lof/regular ctx. good fm. requesting membrane sweep. 04/02/25 -?-?-?-?-?-?-?-?-?-?-?-?- 40w 0d 156 lb 2 oz (+37 lb 2 oz) 111/79 Negative -?-?-?-?-?-?-?-?-?-?-?-?- Negative 130 39 Cephalic 3 -?-?-?-?-?-?-?-?-?-?-?-?- 90 -1 KW- no vb/ lof/ctx. good fm. membrane sweep today. bulging bag felt with exam. requesting to past 41 weeks. growth US ordered and NST next week. ROS Constitutional Constitutional: Denies change in weight, fatigue, fever(s), headache(s), poor appetite or weakness Eyes Eyes: Denies blurry vision, change in vision, seeing flashes or spots in vision ENT HEENT: Denies dizziness, headache(s), loss taste/smell or sore throat Cardiovascular Cardiovascular: Denies chest pain, dizziness, dyspnea, irregular heart rhythm, leg edema, palpitations, rapid heart rate or vomiting Respiratory/Chest Respiratory/Chest: Denies chest tightness, cough, dyspnea or breast pain Gastrointestinal Gastrointestinal: Denies abdominal pain, anorexia, constipation, cramping, diarrhea, hemorrhoids, vomiting or weight changes Genitourinary Genitourinary: Denies dysuria, flank pain, genital lesions, genital pain, urinary frequency or urinary urgency Musculoskeletal Musculoskeletal: Denies back pain, difficulty walking, joint pain, limited range of motion, muscle cramps or numbness Integumentary Integumentary: Denies lesions or unusual bruising Neurologic Neurologic: Denies abnormal movements, abnormal speech, dizziness, numbness, seizure-like activity or syncope Psychiatric Psychiatric: Denies anxiety, behavioral changes, change in appetite, change in libido, cognitive impairment, confusion, depression, difficulty concentrating, hallucinations or suicidal thoughts Endocrine Endocrinology: Denies excessive sweating, polydipsia or polyuria Hematologic/Lymphatic Hematologic/Lymphatic: Denies easy bleeding, easy bruising or lymphadenopathy Allergic/Immunologic Allergic/Immunologic: Denies itchy eyes, lip swelling, seasonal rhinorrhea, rhinitis, throat swelling, tongue swelling, eczemia, wheezing or asthma Vital Signs Vital Signs Vital Signs: 04/09/25 17:20 04/09/25 17:20 04/09/25 17:20 Temperature 99.3 F H Temperature Source Temporal Pulse Rate Respiratory Rate 16 Blood Pressure BP Systolic BP Diastolic Pulse Ox 04/09/25 17:32 04/09/25 17:32 04/09/25 17:33 Temperature Temperature Source Pulse Rate 94 98 Respiratory Rate Blood Pressure 118/78 BP Systolic 118 BP Diastolic 78 Pulse Ox 04/09/25 17:33 Temperature Temperature Source Pulse Rate Respiratory Rate Blood Pressure BP Systolic BP Diastolic Pulse Ox 93 Weight Weight: 157 lb Body Mass Index (BMI) 26.9 Physical Exam Const alert, oriented x3, no apparent distress and healthy appearing General Appearance: cooperative; Negative for anxious HEENT normocephalic Face and Sinus: normal facial exam Eyes EOMs intact bilaterally and no scleral icterus General Eye: normal appearance of both eyes Neck full ROM and supple Lymph Lymphatic: no lymphadenopathy noted Chest Chest: abnormal inspection of the chest Resp normal respiratory effort Effort and Inspection: able to speak in complete sentences Cardio regular rate GI soft to palpation and non-tender Inspection: gravid Palpation: soft; Negative for tender external exam normal Narrative: cx 6.5/90/-1, membrane bag tight against the head. Amniotic Fluid: ROM+plus negative - Back/Spine no CVA tenderness Extremity normal to inspection, full ROM and no clubbing, cyanosis or edema General Extremity: Negative for calf tenderness or edema Skin Lesions: no lesions Rashes: no rashes Psych mental status grossly normal Labs Labs Labs: Blood Type A POSITIVE Antibody Screen NEGATIVE Hct 37.9 % (37-47) Hgb 12.4 g/dL (12.0-15.0) Obstetrics Ultrasound Syphilis Total Ab Nonreactive (Nonreactive) Rubella IgG Antibody Reactive (Nonreactive) Hep Bs Antigen Non-Reactive (Nonreactive) Hepatitis C Antibody Non-Reactive (Nonreactive) Chlamydia DNA ([place]) Negative (Negative) N.gonorrhoeae DNA ([place]) Negative (Negative) HIV 1&2 Antibody Nonreactive (Nonreactive) Glucose 1 Hr 50 gm 136 mg/dL Gest Glucose Tolerance MG/DL Rhogam given: No Assessment & Plan (1) Abnormal glucose affecting : COMMENT: passed 3 hour glucose (2) Supervision of normal : COMMENT: PRR, , TAWANNA 04/02/25, surprise PC: [place], : [place]sim (3) : QUALIFIERS: Weeks of gestation: 40 weeks Qualified Code(s): Z3A.40 - 40 weeks gestation of COMMENT: GBS neg, discussed genetic/carrier testing - undecided, normal anatomy PLAN: Plan Patient presents IAL, plan expectant management for , pitocin/AROM PRN if needed. Pain management: tub . GBS negative . Management of any complications: none I have reviewed the [facility] and made any clinically relevant updates.
[2025-04-09 18:27] LABS: Absolute Lymphocyte Count 3.36 X10^3/uL (0.83-4.51); Absolute Neutrophil Count 6.2 X10^3/uL (2.0-7.7); Basophil# 0.03 X10^3/uL; Basophil% 0.3 % (0-1); Eosinophil# 0.11 X10^3/uL; Hematocrit 38.5 % (37-47); Lymphocyte # 3.36 X10^3/ul (0.83-4.51); Lymphocyte % 32.1 % (19-41); Mean Corp Hgb Conc 33.8 g/dL (32-36); Mean Corpuscular Hgb 32.2 pg (27.0-32.0); Mean Corpuscular Volume 95.3 fL (81-99); Mean Platelet Vol. 11.9 fl (6.2-12.0); Monocyte# 0.75 X10^3/uL; Monocyte% 7.2 % (0-10); NRBC Flagged by Analyzer 0 % (0-5); Neutrophil % 59.1 % (47-70); Platelet Count 192 K/mm3 (150-450); RBC Distribution Width CV 13.2 % (11.6-14.6); RBC Distribution Width SD 45.9 fl (35.1-43.9); Red Blood Count 4.04 M/mm3 (4.2-5.4); White Blood Count 10.5 K/mm3 (4.4-11.0)
[2025-04-09] MEDS: 0.9% Saline Lock 10 ML Syringe IV (18:40)
[2025-04-09 19:07] LABS: Syphilis Antibodies Nonreactive (Nonreactive)
[2025-04-09] MEDS: Oxytocin 15 Units/NS 250ml 15 UNITS/250 ML IV.SOLN 83 UNITS IV (19:43)
[2025-04-09] MEDS: Lidocaine 1% (20 ml mdv) 20 ML Vial INFILT (19:46)
--- NOTE | 2025-04-09 19:55 | OB.VAGDELI_ITS ---
Assessment & Plan (1) Abnormal glucose affecting : COMMENT: passed 3 hour glucose (2) Supervision of normal : COMMENT: PRR, , TAWANNA 04/02/25, surprise PC: [place], : [place]sim (3) : QUALIFIERS: Weeks of gestation: 40 weeks Qualified Code(s): Z3A.40 - 40 weeks gestation of COMMENT: GBS neg, discussed genetic/carrier testing - undecided, normal anatomy Maternal Data Information TAWANNA Calculator Estimated Delivery Date Method Current WG Current Estimate 04/02/25 LMP (Certain) 41w 0d Other Estimates 04/02/25 Ultrasound #1 41w 0d Final TAWANNA: 04/02/25 Gestational age: 41 weeks Vaginal Delivery Maternal Presentation Maternal Presentation: Active Labor Type of Induction: Amniotomy Vaginal Delivery Information Procedure Performed: Spontaneous Vaginal Delivery Surgeon/Practitioner: Meenu Hernandez Date of Procedure: 04/09/25 Pre-Procedure Diagnosis: @ 41 weeks 0 days, active labor Post-Procedure Diagnosis: @ 41 weeks 0 days, active labor Type of anesthesia: Local with 1% Lidocaine Estimated Blood Loss: 200cc Time of Delivery: 19:39 Findings Description of procedure: Patient began pushing and delivered the head in the TRENA presentation. The head was delivered atraumatically and a loose nuchal cord ?1 was identified. Because the baby was delivering quickly, the anterior and posterior shoulders delivered without complication followed by the rest of the infant and the delivered through the cord. The was placed on the maternal abdomen. Delayed cord clamping was employed for approximately 60 seconds. Cord was clamped and cut and gentle traction was applied to the cord and the placenta delivered spontaneously immediately following it was noted to be intact with three-vessel cord. The perineum and vagina were inspected and noted to have a 1st degree perineal laceration. This was repaired after local 1% lidocaine applicaiton with a 2-0 vicryl. EBL was 200cc. Patient and infant tolerated delivery well. Procedure findings: viable male infant Reji Presentation: Vertex Amniotic Membrane Rupture Type: Artificial Amniotic Fluid Description: Clear Placental Delivery Description: Spontaneous Placenta Disposition: [facility] Specimen collected: No Cord Vessel Description: 3 Vessels Cord Entanglement: Around neck x 1, loose Nuchal Cord Compression: Without compression Infant A Gender: Male (1 minute): 8 (5 minute): 9 Delayed Cord Clamping: Yes Student Records Specialist sawmill supervisor: No Post Vaginal Deli Medications given after delivery: IV Pitocin Episiotomy Description: None Laceration: None Complication Complications: No Multi Select Codes Urinary/Genital Urinary/Genital CPT Codes: 89354 Vaginal Delivery Only
--- NOTE | 2025-04-09 20:01 | DCINST_ITS ---
Discharge Instructions Diet Discharge Diet: No restrictions DC O2, CPAP, BIPAP needs Home O2 Discharge instructions: No Dressing / Incision Discharge Activity: Return to Normal Activity, May Not Drive (while taking narcotic pain medications.) and May Shower May resume sexual activity in: 4-6 weeks Dressing / Incision Call your doctor if your incision/area has: Continuous Slow Oozing, Sudden Increased Bleeding, Increased Pain/ Swelling, Increased Redness and Foul Smelling Discharge Follow Up Care Please Follow Up With: Meenu Hernandez, When: Call [phone] to make an appointment with your doctor in 6 weeks. If you had elevated blood pressure or 4th degree laceration, you will need to be seen in 2 weeks. Test Results: Test results from this visit will be discussed in further detail at your follow- up appointment, if applicable. Discharge Plan Admission Admit Date/Time: 04/09/25 17:50 Attending Provider: Meenu Hernandez Primary Care Provider: Hemanth Lott Discharge Orders/Prescriptions Prescriptions: No Action PNV Tabs 20-1 20 mg iron- 1 mg tablet PO Referrals / Follow Up: Hemanth Lott MD [Primary Care Provider] -
--- OUTSIDE RECORDS SUMMARY | 2025-04-09 22:06 | XMS RPT_ITS | CCD ---
Author Organization [facility] Care Team Providers Care Kaiako Kura [place] Maori Name Role Phone Dr. Hemanth Lott Primary Care Provider Dr. Hemanth Lott Referring Provider Dr. Meenu Hernandez Attending Provider [phone] ULISSES Adams Attending Provider [phone] Dr. Hemanth Lott Primary Care Provider [phone] Dr. Hemanth Lott Referring Provider Dr. Meenu Hernandez Attending Provider [phone] ULISSES Adams Attending Provider [phone] ULISSES Garza Attending Provider [phone] Evelin MORSE, HANNA Ruano Attending Provider [phone] Dr. Hemanth Lott Primary Care Provider Dr. Hemanth Lott Referring Provider Dr. Meenu Hernandez Attending Provider [phone] ULISSES Adams Attending Provider [phone] Sagrario Saenz Attending Provider [phone] Dr. Hemanth Lott MD Referring Provider [phone] Jayshree Garza CNM Attending Provider [phone] Jayshree Garza CNM Referring Provider [phone] Dr. Hemanth Lott MD Primary Care Provider Dr. Sagrario Saenz MD Attending Provider [phone] Rebekah Adams CNM Attending Provider [phone] Letty TERRY, Dr. Zabala Referring Provider Bryan GTZ, Rebekah Referring Provider [phone] Greg GTZ, Jayshree Attending Provider Oren TERRY, Dr. Hemanth Fox Referring Provider [phone] Audrey Pozo DO, Dr. Corrigan Attending Provider Oren TERRY, Dr. Hemanth Fox Primary Care Provider Greg GTZ, Jayshree Attending Provider [phone] Greg GTZ, Jayshree Referring Provider Schinner, Hemanth E Primary Care Unavailable Schinner, Hemanth E Referring Unavailable Jayshree Garza Attending Unavailable Schinner, Hemanth E Referring Unavailable Schinner, Hemanth E Primary Care Unavailable Meenu Hernandez Attending Unavailabl e Schinner, Hemanth E Primary Care Unavailable Yina Eli Attending Unavailable Schinner, Hemanth E Referring Unavailable Schinner, Hemanth E Primary Care Unavailable Jayshree Garza Attending Unavailable AdamsRebekah Attending Unavailable Schinner, Hemanth E Primary Care Unavailable Schinner, Hemanth E Referring Unavailable Jayshree Garza Attending Unavailable Schinner, Hemanth E Primary Care Unavailable Sagrario Saenz Attending Unavailable Schinner, Hemanth E Referring Unavailable Rebekah Adams Attending Unavailable Schinner, Hemanth E Referring Unavailable Schinner, Hemanth E Primary Care Unavailable Jayshree Garza Referring Unavailable Jayshree Garza Attending Unavailable Schinner, Hemanth E Primary Care Unavailable Schinner, Hemanth E Referring Unavailable Jayshree Garza Attending Unavailable Rebekah Adams Referring Unavailable Rebekah Adams Attending Unavailable Schinner, Hemanth E Primary Care Unavailable Schinner, Hemanth E Primary Care Unavailable Schinner, Hemanth E Referring Unavailable Sagrario Saenz Attending Unavailable Sagrario Saenz Attending Unavailable Schinner, Hemanth E Primary Care Unavailable Sagrario Saenz Referring Unavailable Rebekah Adams Referring Unavailable Rebekah Adams Attending Unavailable Schinner, Hemanth E Primary Care Unavailable Schinner, Hemanth E Primary Care Unavailable Jayshree Garza Attending Unavailable Jayshree Garza Referring Unavailable Schinner, Hemanth E Primary Care Unavailable Jayshree Garza Referring Unavailable Jayshree Garza Attending Unavailable Schinner, Hemanth E Referring Unavailable Jayshree Garza Attending Unavailable Schinner, Hemanth E Primary Care Unavailable Schinner, Hemanth E Referring Unavailable Jayshree Garza Attending Unavailable Hemanth Lott Referring Unavailable Jayshree Garza Attending Unavailable Hemanth Lott Primary Care Unavailable Hemanth Lott Referring Unavailable Jayshree Garza Attending Unavailable Hemanth Lott Referring Unavailable Hemanth Lott Primary Care Unavailable Jayshree Garza Attending Unavailable Medications Current Medications Medication Drug Class(es) Dates Sig (Normalized) Sig (Original) esomeprazole 20 mg delayed release oral capsule (9 sources) Proton Pump Inhibitor Start: 09-29-2022 take 1 capsule by mouth once daily Esomeprazole Magnesium 20 mg capsule,delayed release(DR/EC) Active 20 mg PO DAILY September 29, 2022 1:00am Iron (10 sources) Start: 08-18-2022 Pnv No.165-Ozgs-Sqxtoa No.10 (Pnv Tabs 20-1) 20 mg iron- 1 mg tablet Active {tbl} PO August 18, 2022 12:00am Start: 08-18-2022 Pnv No.163-Iro n-Folate No.10 (Pnv Tabs 20-1) 20 mg iron- 1 mg tablet Active TABLET PO August 18, 2022 12:00am Start: 08-18-2022 Pnv No.163-Iro n-Folate No.10 (Pnv Tabs 20-1) 20 mg iron- 1 mg tablet Active TABLET PO August 17, 2022 11:00pm miconazole nitrate 20 mg/ml vaginal cream (3 sources) Azole Antifungal Start: 01-29-2025 Miconazole Ni trate 2 % cream Active 1 NMA VAGINAL AT BEDTIME 45 7 January 29, 2025 12:00am Completed/Discontinued Medications Medication Drug Class(es) Dates Sig (Normalized) Sig (Original) famotidine 20 mg oral tablet (10 sources) Histamine-2 Receptor Antagonist Start: 07-11-2020 End: 07-18-2020 take 1 tablet by mouth twice daily Famotidine 20 MG tablet Discontinued 20 mg PO TWICE A DAY 14 7 July 11, 2020 12:00am July 17, 2020 12:00am July 18, 2020 12:03am ondansetron 4 mg disintegrating oral tablet (10 sources) Serotonin-3 Receptor Antagonist Start: 07-11-2020 End: 08-18-2022 take 1 tablet by mouth every eight hours as needed for nausea Ondansetron 4 MG tablet Discontinued 4 mg PO EVERY 8 HOURS NEEDED as needed for Nausea July 11, 2020 12:00am August 18, 2022 3:35pm terconazole 4 mg/ml vaginal cream (5 sources) Azole Antifungal Start: 11-28-2024 End: 12-05-2024 Terconazole 0.4 % cream Discontinued 1 NMA VAGINAL AT BEDTIME 45 7 November 28, 2024 1:00am December 04, 2024 1:00am December 05, 2024 1:10am Problems Active Problems Problem Classification Problem Date Documented Da te Episodic/Chronic Diabetes or abnormal glucose tolerance complicating ; childbirth; or the puerperium (20 sources) Abnormal glucose level; Translations: [Abnormal glucose complicating ] Onset: 04-02-2025 01-01-2025 Episodic Comment on above: passed 3 hour glucos e Mycoses (13 sources) Mycosis; Translations: [Candidiasis, unspecified] Onset: 02-24-2025 01-29-2025 Episodic Other and delivery including normal (20 sources) Normal ; Translations: [Encounter for supervision of normal first , unspecified trimester] Onset: 04-02-2025 Episodic Comment on above: SM IAL 40 boy [place] [id number], TAWANNA 04/02/23, Maksim PRR, , TAWANNA 04/02, surprise PC: [place], : Maksim Discussed genetic/ca rrier testing - undecided, normal anatomy GBS neg, declined NI PT & Carrier testing, 11/10 nl anatomy GBS neg, discussed g enetic/carrier testing - undecided, normal anatomy Other upper respiratory disease (10 sources) Seasonal allergy; Translations: [Other seasonal allergic rhinitis] 08-18-2022 Chronic Comment on above: spring & summer Other upper respiratory disease (16 sources) Other seasonal allergic rhinitis; Translations: [Allergic rhinitis, cause unspecified] Chronic Polyhydramnios and other problems of amniotic cavity (5 sources) Spontaneous rupture of membranes 04-07-2023 Episodic Residual codes; unclassified (1 source) 40 weeks gestation of ; Translations: [40 weeks gestation of ] Onset: 04-02-2025 Episodic Residual codes; unclassified (1 source) 39 weeks gestation of ; Translations: [39 weeks gestation of ] Onset: 03-26-2025 Episodic Residual codes; unclassified (1 source) 38 weeks gestation of ; Translations: [38 weeks gestation of ] Onset: 03-20-2025 Episodic Residual codes; unclassified (1 source) 34 weeks gestation of ; Translations: [34 weeks gestation of ] Onset: 02-24-2025 Episodic Residual codes; unclassified (1 source) 31 weeks gestation of ; Translations: [31 weeks gestation of ] Onset: 01-29-2025 Episodic Past or Other Problems Problem Classification Problem Date Documented Da te Episodic/Chronic Other screening for suspected conditions (not mental disorders or infectious disease) (1 source) Encounter for screening for malignant neoplasm of cervix; Translations: [Encounter for screening for malignant neoplasm of cervix] Onset: 07-04-2024 Episodic Residual codes; unclassified (1 source) 22 weeks gestation of ; Translations: [22 weeks gestation of ] Onset: 11-28-2024 Episodic Residual codes; unclassified (1 source) 19 weeks gestation of ; Translations: [19 weeks gestation of ] Onset: 11-06-2024 Episodic Residual codes; unclassified (1 source) 14 weeks gestation of ; Translations: [14 weeks gestation of ] Onset: 10-04-2024 Episodic Residual codes; unclassified (1 source) 9 weeks gestation of ; Translations: [9 weeks gestation of ] Onset: 08-29-2024 Episodic Results Test Name Value Interpretation Reference Range Facility Automation Design Engineer Office Visit Reporton 04-02-2025 Automation Design Engineer Office Visit Report [facility]'s [address], [address] [address] OFFICE VISIT Date of Service: 04/02/25 MR#: [id number] Acct: [id number] Name: DELPHINE SHAH Rep #: [id number] : 2000 Provider: ULISSES Osborn ams Age/Sex: 25/F Location: [facility] Status: Signed Intake Vital Signs 03/20/25 15:00 03/26/25 09:34 04/02/25 08:56 04/02/25 09:03 Height 5 ft 4 in 5 ft 4 in 5 ft 4 in 5 ft 4 in Weight: 156 lb 2 oz BMI 26.8 BP 111/79 Intake Visit Reasons: 40 wk ob *happy due date Cleaner Touch Up Worker Required: No Is patient in pain?: No Allergies No Known Allergies Allergy (Verified 04/02/25 08:55) Medications ???Medication ???Instructions ???Recorded ???Confirmed ???Type vitamins no.163-iron tab PO 08/18/22 04/02/25 History bis-gly 20 mg-folate no.10 1 mg tablet (PNV Tabs 20-1) esomeprazole magnesium 20 mg 20 mg PO DAILY 09/29/22 04/02/25 H istory capsule,delayed release miconazole nitrate 2 % vaginal 1 appful vaginal QHS 7 days #45 04/02/25 Rx cream grams Last Menstrual Period: 06/26/24 Do you think of yourself as: straight/heterosexual Current gender identity: female Zika: Zika virus screening: Negative : No PFSH PFSH Medical History Normal course Vaginal delivery Family hx of colon cancer Surgical History History of tonsillectomy and adenoidectomy Hx of wisdom tooth extraction Family History Grandfather Colon cancer, Onset Age: 78 Father Hyperlipidemia Social History adopted: No household members: spouse and children housing: house number of children: 2 current occupational status: unemployed current occupation: [employer] current occupational exposures/hazards: No pets and animals: Yes pets and animals: dog(s) history of recent travel: No sexually active: Yes do you think of yourself as: straight/heterosexual current gender identity: female Smoking Status: Never smoker alcohol intake: never substance use type: does not use well-balanced diet: daily or most days caffeine: Yes Type: coffee Number of servings: 1 eating out: rarely or never during the past year weight has: remained stable what type of physical activity do you participate in: walking frequency: 1-2 times per week duration: 30-45 minutes/day 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 Date Name GA/Weeks Outcome Route Bth Weight Gen Labor Lgth Anesthesia Del [place] Provider FOB 04/07/23 [place] 40 live - full term 7lbs 15oz Male epidural [facility] Sagrario Schaeffer Delivery Date: 04/07/23 Last Updated by: Jeanne Ramirez see problem list for complications, and SM IAL 40 boy [place]. HPI 40 wk ob *happy due date Details: DELPHINE SHAH is a 25 year old who presents for routine OB visit. OB Visit TAWANNA Calculator Estimated Delivery Date Method Current WG Current Estimate 04/02/25 LMP (Certain) 40w 0d Other Estimates 04/02/25 Ultrasound #1 40w 0d Expected Delivery Route/Plan Labor Preferences- CB/BF classes: [] labor support person: [] labor intervention preferences: [] pain management options preferred: [] cut cord/dad catch: [] : [] PP control planned: [] discussed possible routes of delivery and associated risks: [] special requests: [] Specific Issue/Plans Covid status: [] Flu vaccine: [] Tdap vaccine: [] Rhogam: [] LARC form signed: [] Problem list reviewed and updated with the most current plan of care details and appropriate orders placed. Relevant counseling for the gestational age provided. Continue routine care and follow up unless otherwise noted in visit notes/problem list details Initial Weight: 119 lb Date -???-???-???-???-???- ???-???-???-???-???-? ??-???- EGA Weight BP Urine Prot -???-???-???-???-???- ???-???-???-???-???-? ??-???- Glucose FHR FuHt Pres Dilation -???-???-???-???-???- ???-???-???-???-???-? ??-???- Effaced St Visit Note 08/29/24 -???-???-???-???-???- ???-???-???-???-???-? ??-???- 9w 1d 119 lb (+0 oz) 116/78 -???-???-???-???-???- ???-???-???-???-???-? ??-???- 171 -???-???-???-???-???- ???-???-???-???-???-? ??-???- KW- CRL cons with dates. Declines NIPT. 10/04/24 -???-???-???-??? (more content not included)... Normal [facility] Automation Design Engineer Office Visit Reporton 03-26-2025 Automation Design Engineer Office Visit Report [facility] [address] [place] [address], [address] [place] [address] OFFICE VISIT Date of Service: 03/26/25 MR#: [id number] Acct: [id number] Name: DELPHINE SHAH Rep #: [id number] : 2000 Provider: ULISSES Osborn ams Age/Sex: 25/F Location: [facility] Status: Signed Intake Vital Signs 02/24/25 09:39 03/20/25 15:00 03/26/25 09:29 03/26/25 09:34 Height 5 ft 4 in 5 ft 4 in 5 ft 4 in 5 ft 4 in Weight: 157 lb 6 oz BMI 27.0 BP 105/72 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 Is patient in pain?: No Allergies No Known Allergies Allergy (Verified 03/26/25 09:29) Medications ???Medication ???Instructions ???Recorded ???Confirmed ???Type vitamins no.163-iron tab PO 08/18/22 03/26/25 History bis-gly 20 mg-folate no.10 1 mg tablet (PNV Tabs 20-1) esomeprazole magnesium 20 mg 20 mg PO DAILY 09/29/22 03/26/25 H istory capsule,delayed release miconazole nitrate 2 % vaginal 1 appful vaginal QHS 7 days #45 03/26/25 Rx cream grams Last Menstrual Period: 06/26/24 Zika: Zika virus screening: Negative : No PFSH PFSH Medical History Normal course Vaginal delivery Family hx of colon cancer Surgical History History of tonsillectomy and adenoidectomy Hx of wisdom tooth extraction Family History Grandfather Colon cancer, Onset Age: 78 Father Hyperlipidemia Social History adopted: No household members: spouse and children housing: house number of children: 2 current occupational status: unemployed current occupation: [employer] current occupational exposures/hazards: No pets and animals: Yes pets and animals: dog(s) history of recent travel: No sexually active: Yes Smoking Status: Never smoker alcohol intake: never substance use type: does not use well-balanced diet: daily or most days caffeine: Yes Type: coffee Number of servings: 1 eating out: rarely or never during the past year weight has: remained stable what type of physical activity do you participate in: walking frequency: 1-2 times per week duration: 30-45 minutes/day melisa/anabaptist: [employer] seatbelt use: always do you feel safe at home: Yes additional social history: : [place] History 2 Elective abortions Hx Para 1 Spontaneous abortions Hx # Term Pregnancies 1 Ectopic pregnancies Hx # Pregnancies Multiple births # of living children 1 Past Pregnancies Del. Date Name GA/Weeks Outcome Route Bth Weight Infant Gen Labor Lgth Anesthesia Del Locatn Provider FOB 04/07/23 [place] 40 live - full term 7lbs 15oz Male epidural [facility] Sagrario Schaeffer Delivery Date: 04/07/23 Last Updated by: Jeanne Ramirez see problem list for complications, and IAL 40 boy [place]. HPI 39 wk ob Details: DELPHINE SHAH is a 25 year old who presents for routine OB visit. OB Visit TAWANNA Calculator Estimated Delivery Date Method Current WG Current Estimate 04/02/25 LMP (Certain) 39w 0d Other Estimates 04/02/25 Ultrasound #1 39w 0d Expected Delivery Route/Plan Labor Preferences- CB/BF classes: [] labor support person: [] labor intervention preferences: [] pain management options preferred: [] cut cord/dad catch: [] : [] PP control planned: [] discussed possible routes of delivery and associated risks: [] special requests: [] Specific Issue/Plans Covid status: [] Flu vaccine: [] Tdap vaccine: [] Rhogam: [] LARC form signed: [] Problem list reviewed and updated with the most current plan of care details and appropriate orders placed. Relevant counseling for the gestational age provided. Continue routine care and follow up unless otherwise noted in visit notes/problem list details Initial Weight: 119 lb Date -???-???-???-???-???- ???-???-???-???-???-? ??-???- EGA Weight BP Urine Prot -???-???-???-???-???- ???-???-???-???-???-? ??-???- Glucose FHR FuHt Pres Dilation -???-???-???-???-???- ???-???-???-???-???-? ??-???- Effaced St Visit Note 08/29/24 -???-???-???-???-???- ???-???-???-???-???-? ??-???- 9w 1d 119 lb (+0 oz) 116/78 -???-???-???-???-???- ???-???-???-???-???-? ??-???- 171 -???-???-???-???-???- ???-???-???-???-???-? ??-???- KW- CRL cons with dates. Declines NIPT. 10/04/24 -???-???-???-???-???- ???-???-???-???-???-? ??-???- 14w 2d 124 lb 8 oz (+5 lb 8 oz) 116/78 Negative -???-???-???-???-???- ???-???-???-???-???-? ??-???- Negative 147 -???-???-???-???-???- ???-???-???-???-???-? ??-???- (more content not included)... Normal [facility] Laboratory - Chemistry and C hemistry - challengeOrdered By: Sagrario Saenz on 03-20-2025 Glucose Ql (U) Negative [facility] Laboratory - UrinalysisOrder ed By: Sagrario Saenz on 03-20-2025 Protein Ql (U) Negative [facility] Automation Design Engineer Office Visit Reporton 03-20-2025 Automation Design Engineer Office Visit Report [facility]'s [address], [address] [place] [address] OFFICE VISIT Date of Service: 03/20/25 MR#: [id number] Acct: [id number] Name: DELPHINE SHAH Rep #: [id number] : 2000 Provider: Dr. Sagrario freeman MD Age/Sex: 25/F Location: [facility] Status: Signed Intake Vital Signs 02/24/25 09:39 03/12/25 10:00 03/20/25 14:57 03/20/25 15:00 Height 5 ft 4 in 5 ft 4 in 5 ft 4 in 5 ft 4 in Weight: 156 lb 2 oz BMI 26.8 BP 113/78 Intake Visit Reasons: 37 wk ob Cleaner Touch Up Worker Required: No Is patient in pain?: No Feel stressed/tense/nervou s/anxious/difficulty sleeping: not at all Allergies No Known Allergies Allergy (Verified 03/20/25 14:58) Medications ???Medication ???Instructions ???Recorded ???Confirmed ???Type vitamins no.163-iron tab PO 08/18/22 03/20/25 History bis-gly 20 mg-folate no.10 1 mg tablet (PNV Tabs 20-1) esomeprazole magnesium 20 mg 20 mg PO DAILY 09/29/22 03/20/25 H istory capsule,delayed release miconazole nitrate 2 % vaginal 1 appful vaginal QHS 7 days #45 03/20/25 Rx cream grams Last Menstrual Period: 06/26/24 Zika: Zika virus screening: Negative : No PFSH PFSH Medical History Normal course Vaginal delivery Family hx of colon cancer Surgical History History of tonsillectomy and adenoidectomy Hx of wisdom tooth extraction Family History Grandfather Colon cancer, Onset Age: 78 Father Hyperlipidemia Social History adopted: No household members: spouse and children housing: house number of children: 2 current occupational status: unemployed current occupation: [employer] current occupational exposures/hazards: No pets and animals: Yes pets and animals: dog(s) history of recent travel: No sexually active: Yes Smoking Status: Never smoker alcohol intake: never substance use type: does not use well-balanced diet: daily or most days caffeine: Yes Type: coffee Number of servings: 1 eating out: rarely or never during the past year weight has: remained stable what type of physical activity do you participate in: walking frequency: 1-2 times per week duration: 30-45 minutes/day melisa/anabaptist: [employer] seatbelt use: always do you feel safe at home: Yes additional social history: : [place] Cristal [place] History 2 Elective abortions Hx Para 1 Spontaneous abortions Hx # Term Pregnancies 1 Ectopic pregnancies Hx # Pregnancies Multiple births # of living children 1 Past Pregnancies Del. Date Name GA/Weeks Outcome Route Bth Weight Gen Labor Lgth Anesthesia Del [place] Provider FOB 04/07/23 [place] 40 live - full term 7lbs 15oz Male epidural [facility] Sagrario Schaeffer Delivery Date: 04/07/23 Last Updated by: Jeanne Ramirez see problem list for complications, and SM IAL 40 boy [place]. HPI 37 wk ob Details: DELPHINE SHAH is a 25 year old who presents for routine OB visit. OB Visit TAWANNA Calculator Estimated Delivery Date Method Current WG Current Estimate 04/02/25 LMP (Certain) 38w 1d Other Estimates 04/02/25 Ultrasound #1 38w 1d Expected Delivery Route/Plan Labor Preferences- CB/BF classes: [] labor support person: [] labor intervention preferences: [] pain management options preferred: [] cut cord/dad catch: [] : [] PP control planned: [] discussed possible routes of delivery and associated risks: [] special requests: [] Specific Issue/Plans Covid status: [] Flu vaccine: [] Tdap vaccine: [] Rhogam: [] LARC form signed: [] Problem list reviewed and updated with the most current plan of care details and appropriate orders placed. Relevant counseling for the gestational age provided. Continue routine care and follow up unless otherwise noted in visit notes/problem list details Initial Weight: 119 lb Date -???-???-???-???-???- ???-???-???-???-???-? ??-???- EGA Weight BP Urine Prot -???-???-???-???-???- ???-???-???-???-???-? ??-???- Glucose FHR FuHt Pres Dilation -???-???-???-???-???- ???-???-???-???-???-? ??-???- Effaced St Visit Note 08/29/24 -???-???-???-???-???- ???-???-???-???-???-? ??-???- 9w 1d 119 lb (+0 oz) 116/78 -???-???-???-???-???- ???-???-???-???-???-? ??-???- 171 -???-???-???-???-???- ???-???-???-???-???-? ??-???- KW- CRL cons with dates. Declines NIPT. 10/04/24 -???-???-???-???-???- ???-???-???-???-???-? ??-???- 14w 2d 124 lb 8 oz (+5 lb 8 oz) Negative -???-???-???-???-???- ???-??? (more content not included)... Normal [facility] Rule out Beta Strep (Grp. B) on 03-14-2025 HIRAM Group B Beta Streptococcus is not isolated. Normal [facility] Comment on above: Performed By: #### M [id number] #### [facility] [address] [place] [address] [place], [address] Laboratory - Chemistry and C hemistry - challengeOrdered By: Jayshree Garza on 03-12-2025 Glucose Ql (U) Negative [facility] Laboratory - UrinalysisOrder ed By: Jayshree Garza on 03-12-2025 Protein Ql (U) Negative [facility] Automation Design Engineer Office Visit Reporton 03-12-2025 Automation Design Engineer Office Visit Report [facility]'[address], [address] [place] [address] OFFICE VISIT Date of Service: 03/12/25 MR#: [id number] Acct: [id number] Name: DELPHINE SHAH Rep #: [id number] : 2000 Provider: ULISSES Osborn ams Age/Sex: 25/F Location: [facility] Status: Signed Intake Vital Signs 12/27/24 09:50 02/24/25 09:39 03/12/25 09:56 03/12/25 10:00 Height 5 ft 4 in 5 ft 4 in 5 ft 4 in 5 ft 4 in Weight: 152 lb 8 oz BMI 26.2 BP 104/72 Intake Visit Reasons: 36 wk ob Cleaner Touch Up Worker Required: No Is patient in pain?: No Allergies No Known Allergies Allergy (Verified 03/12/25 09:55) Medications ???Medication ???Instructions ???Recorded ???Confirmed ???Type vitamins no.163-iron tab PO 08/18/22 03/12/25 History bis-gly 20 mg-folate no.10 1 mg tablet (PNV Tabs 20-1) esomeprazole magnesium 20 mg 20 mg PO DAILY 09/29/22 03/12/25 H istory capsule,delayed release miconazole nitrate 2 % vaginal 1 appful vaginal QHS 7 days #45 03/12/25 Rx cream grams Last Menstrual Period: 06/26/24 Zika: Zika virus screening: Negative : No PFSH PFSH Medical History Normal course Vaginal delivery Family hx of colon cancer Surgical History History of tonsillectomy and adenoidectomy Hx of wisdom tooth extraction Family History Grandfather Colon cancer, Onset Age: 78 Father Hyperlipidemia Social History adopted: No household members: spouse and children housing: house number of children: 2 current occupational status: unemployed current occupation: [employer] current occupational exposures/hazards: No pets and animals: Yes pets and animals: dog(s) history of recent travel: No sexually active: Yes Smoking Status: Never smoker alcohol intake: never substance use type: does not use well-balanced diet: daily or most days caffeine: Yes Type: coffee Number of servings: 1 eating out: rarely or never during the past year weight has: remained stable what type of physical activity do you participate in: walking frequency: 1-2 times per week duration: 30-45 minutes/day 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 Date Name GA/Weeks Outcome Route Bth Weight Gen Labor Lgth Anesthesia Del Locatn Provider FOB 04/07/23 [place] 40 live - full term 7lbs 15oz Male epidural [facility] Sagrario Schaeffer Delivery Date: 04/07/23 Last Updated by: Jeanne Ramirez see problem list for complications, and SM IAL 40 boy [place]. HPI 36 wk ob Details: DELPHINE SHAH is a 25 year old who presents for routine OB visit. OB Visit TAWANNA Calculator Estimated Delivery Date Method Current WG Current Estimate 04/02/25 LMP (Certain) 37w 0d Other Estimates 04/02/25 Ultrasound #1 37w 0d Expected Delivery Route/Plan Labor Preferences- CB/BF classes: [] labor support person: [] labor intervention preferences: [] pain management options preferred: [] cut cord/dad catch: [] : [] PP control planned: [] discussed possible routes of delivery and associated risks: [] special requests: [] Specific Issue/Plans Covid status: [] Flu vaccine: [] Tdap vaccine: [] Rhogam: [] LARC form signed: [] Problem list reviewed and updated with the most current plan of care details and appropriate orders placed. Relevant counseling for the gestational age provided. Continue routine care and follow up unless otherwise noted in visit notes/problem list details Initial Weight: 119 lb Date -???-???-???-???-???- ???-???-???-???-???-? ??-???- EGA Weight BP Urine Prot -???-???-???-???-???- ???-???-???-???-???-? ??-???- Glucose FHR FuHt Pres Dilation -???-???-???-???-???- ???-???-???-???-???-? ??-???- Effaced St Visit Note 08/29/24 -???-???-???-???-???- ???-???-???-???-???-? ??-???- 9w 1d 119 lb (+0 oz) 116/78 -???-???-???-???-???- ???-???-???-???-???-? ??-???- 171 -???-???-???-???-???- ???-???-???-???-???-? ??-???- KW- CRL cons with dates. Declines NIPT. 10/04/24 -???-???-???-???-???- ???-???-???-???-???-? ??-???- 14w 2d 124 lb 8 oz (+5 lb 8 oz) 116/78 Negative -???-???-???-???-???- ???-???-???-???-???-? ??-???- Negative 147 -???-???-???-???-???- ???-???-???-???-???-? ??-???- (more content not included)... Normal [facility] Screening beta-hemolytic Str eptococcus cultureOrdered By: Jayshree Garza on 03-12-2025 Beta-hemolytic Streptococcus culture Group B Beta Streptococcus is not isolated. [facility] Laboratory - Chemistry and C hemistry - challengeOrdered By: Jayshree Garza on 02-24-2025 Glucose Ql (U) Negative [facility] Laboratory - UrinalysisOrder ed By: Jayshree Garza on 02-24-2025 Protein Ql (U) Negative [facility] Automation Design Engineer Office Visit Reporton 02-24-2025 Automation Design Engineer Office Visit Report [facility]'s [address], [address] [place] [address] OFFICE VISIT Date of Service: 02/24/25 MR#: [id number] Acct: [id number] Name: DELPHINE SHAH Rep #: [id number] : 2000 Provider: ULISSES Osborn ams Age/Sex: 25/F Location: [facility] Status: Signed Intake Vital Signs 12/27/24 09:50 02/12/25 09:40 02/24/25 09:34 02/24/25 09:39 Height 5 ft 4 in 5 ft 4 in 5 ft 4 in 5 ft 4 in Weight: 151 lb 6 oz BMI 25.9 BP 111/75 Intake Visit Reasons: 34 wk ob Cleaner Touch Up Worker Required: No Is patient in pain?: No Allergies No Known Allergies Allergy (Verified 02/24/25 09:33) Medications ???Medication ???Instructions ???Recorded ???Confirmed ???Type vitamins no.163-iron tab PO 08/18/22 02/24/25 History bis-gly 20 mg-folate no.10 1 mg tablet (PNV Tabs 20-1) esomeprazole magnesium 20 mg 20 mg PO DAILY 09/29/22 02/24/25 H istory capsule,delayed release miconazole nitrate 2 % vaginal 1 appful vaginal QHS 7 days #45 02/24/25 Rx cream grams Last Menstrual Period: 06/26/24 Zika: Zika virus screening: Negative : No PFSH PFSH Medical History Normal course Vaginal delivery Family hx of colon cancer Surgical History History of tonsillectomy and adenoidectomy Hx of wisdom tooth extraction Family History Grandfather Colon cancer, Onset Age: 78 Father Hyperlipidemia Social History adopted: No household members: spouse and children housing: house number of children: 2 current occupational status: unemployed current occupation: [employer] current occupational exposures/hazards: No pets and animals: Yes pets and animals: dog(s) history of recent travel: No sexually active: Yes Smoking Status: Never smoker alcohol intake: never substance use type: does not use well-balanced diet: daily or most days caffeine: Yes Type: coffee Number of servings: 1 eating out: rarely or never during the past year weight has: remained stable what type of physical activity do you participate in: walking frequency: 1-2 times per week duration: 30-45 minutes/day 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 Date Name GA/Weeks Outcome Route Bth Weight Infant Gen Labor Lgth Anesthesia Del Locatn Provider FOB 04/07/23 [place] 40 live - full term 7lbs 15oz Male epidural [facility] Sagrario Letty Schaeffer Delivery Date: 04/07/23 Last Updated by: Jeanne Ramirez see problem list for complications, and SM IAL 40 boy [place]. HPI 34 wk ob Details: DELPHINE SHAH is a 25 year old who presents for routine OB visit. OB Visit TAWANNA Calculator Estimated Delivery Date Method Current WG Current Estimate 04/02/25 LMP (Certain) 34w 5d Other Estimates 04/02/25 Ultrasound #1 34w 5d Expected Delivery Route/Plan Labor Preferences- CB/BF classes: [] labor support person: [] labor intervention preferences: [] pain management options preferred: [] cut cord/dad catch: [] : [] PP control planned: [] discussed possible routes of delivery and associated risks: [] special requests: [] Specific Issue/Plans Covid status: [] Flu vaccine: [] Tdap vaccine: [] Rhogam: [] LARC form signed: [] Problem list reviewed and updated with the most current plan of care details and appropriate orders placed. Relevant counseling for the gestational age provided. Continue routine care and follow up unless otherwise noted in visit notes/problem list details Initial Weight: 119 lb Date -???-???-???-???-???- ???-???-???-???-???-? ??-???- EGA Weight BP Urine Prot -???-???-???-???-???- ???-???-???-???-???-? ??-???- Glucose FHR FuHt Pres Dilation -???-???-???-???-???- ???-???-???-???-???-? ??-???- Effaced St Visit Note 08/29/24 -???-???-???-???-???- ???-???-???-???-???-? ??-???- 9w 1d 119 lb (+0 oz) 116/78 -???-???-???-???-???- ???-???-???-???-???-? ??-???- 171 -???-???-???-???-???- ???-???-???-???-???-? ??-???- KW- CRL cons with dates. Declines NIPT. 10/04/24 -???-???-???-???-???- ???-???-???-???-???-? ??-???- 14w 2d 124 lb 8 oz (+5 lb 8 oz) 116/78 Negative -???-???-???-???-???- ???-???-???-???-???-? ??-???- Negative 147 -???-???-???-???-???- ???-???-???-???-???-? ??-???- (more content not included)... Normal [facility] Laboratory - Chemistry and C hemistry - challengeOrdered By: Jayshree Garza on 02-12-2025 Glucose Ql (U) Negative [facility] Laboratory - UrinalysisOrder ed By: Jayshree Garza on 02-12-2025 Protein Ql (U) Negative [facility] Automation Design Engineer Office Visit Reporton 02-12-2025 Automation Design Engineer Office Visit Report [facility] [address], [address] [place] [address] OFFICE VISIT Date of Service: 02/12/25 MR#: [id number] Acct: [id number] Name: DELPHINE SHAH Rep #: [id number] : 2000 Provider: ULISSES Osborn ams Age/Sex: 25/F Location: [facility] [place] Status: Signed Intake Vital Signs 12/27/24 09:50 01/29/25 08:28 02/12/25 09:36 02/12/25 09:40 Height 5 ft 4 in 5 ft 4 in 5 ft 4 in 5 ft 4 in Weight: 152 lb 2 oz BMI 26.1 BP 102/68 Intake Visit Reasons: 32 wk ob Cleaner Touch Up Worker Required: No Is patient in pain?: No Allergies No Known Allergies Allergy (Verified 02/12/25 09:35) Medications ???Medication ???Instructions ???Recorded ???Confirmed ???Type vitamins no.163-iron tab PO 08/18/22 02/12/25 History bis-gly 20 mg-folate no.10 1 mg tablet (PNV Tabs 20-1) esomeprazole magnesium 20 mg 20 mg PO DAILY 09/29/22 02/12/25 H istory capsule,delayed release miconazole nitrate 2 % vaginal 1 appful vaginal QHS 7 days #45 02/12/25 Rx cream grams Last Menstrual Period: 06/26/24 Zika: Zika virus screening: Negative : No PFSH PFSH Medical History Normal course Vaginal delivery Family hx of colon cancer Surgical History History of tonsillectomy and adenoidectomy Hx of wisdom tooth extraction Family History Grandfather Colon cancer, Onset Age: 78 Father Hyperlipidemia Social History adopted: No household members: spouse and children housing: house number of children: 2 current occupational status: unemployed current occupation: [employer] current occupational exposures/hazards: No pets and animals: Yes pets and animals: dog(s) history of recent travel: No sexually active: Yes Smoking Status: Never smoker alcohol intake: never substance use type: does not use well-balanced diet: daily or most days caffeine: Yes Type: coffee Number of servings: 1 eating out: rarely or never during the past year weight has: remained stable what type of physical activity do you participate in: walking frequency: 1-2 times per week duration: 30-45 minutes/day 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 Date Name GA/Weeks Outcome Route Bth Weight Gen Labor Lgth Anesthesia Del Locatn Provider FOB 04/07/23 [place] 40 live - full term 7lbs 15oz Male epidural [facility] Sagrario Letty Schaeffer Delivery Date: 04/07/23 Last Updated by: Jeanne Ramirez see problem list for complications, and IAL 40 boy [place]. HPI 32 wk ob Details: DELPHINE SHAH is a 25 year old who presents for routine OB visit. OB Visit TAWANNA Calculator Estimated Delivery Date Method Current WG Current Estimate 04/02/25 LMP (Certain) 33w 0d Other Estimates 04/02/25 Ultrasound #1 33w 0d Expected Delivery Route/Plan Labor Preferences- CB/BF classes: [] labor support person: [] labor intervention preferences: [] pain management options preferred: [] cut cord/dad catch: [] : [] PP control planned: [] discussed possible routes of delivery and associated risks: [] special requests: [] Specific Issue/Plans Covid status: [] Flu vaccine: [] Tdap vaccine: [] Rhogam: [] LARC form signed: [] Problem list reviewed and updated with the most current plan of care details and appropriate orders placed. Relevant counseling for the gestational age provided. Continue routine care and follow up unless otherwise noted in visit notes/problem list details Initial Weight: 119 lb Date -???-???-???-???-???- ???-???-???-???-???-? ??-???- EGA Weight BP Urine Prot -???-???-???-???-???- ???-???-???-???-???-? ??-???- Glucose FHR FuHt Pres Dilation -???-???-???-???-???- ???-???-???-???-???-? ??-???- Effaced St Visit Note 08/29/24 -???-???-???-???-???- ???-???-???-???-???-? ??-???- 9w 1d 119 lb (+0 oz) 116/78 -???-???-???-???-???- ???-???-???-???-???-? ??-???- 171 -???-???-???-???-???- ???-???-???-???-???-? ??-???- KW- CRL cons with dates. Declines NIPT. 10/04/24 -???-???-???-???-???- ???-???-???-???-???-? ??-???- 14w 2d 124 lb 8 oz (+5 lb 8 oz) 116/78 Negative -???-???-???-???-???- ???-???-???-???-???-? ??-???- Negative 147 -???-???-???-???-???- ???-???-???-???-???-? ??-???- (more content not included)... Normal [facility] Laboratory - Chemistry and C hemistry - challengeOrdered By: Jayshree Garza on 01-29-2025 Glucose Ql (U) Negative [facility] Laboratory - UrinalysisOrder ed By: Jayshree Garza on 01-29-2025 Protein Ql (U) Negative [facility] Automation Design Engineer Office Visit Reporton 01-29-2025 Automation Design Engineer Office Visit Report [facility]'s [address], [address] [place] [address] OFFICE VISIT Date of Service: 01/29/25 MR#: [id number] Acct: [id number] Name: DELPHINE SHAH Rep #: [id number] : 2000 Provider: ULISSES Osborn ams Age/Sex: 24/F Location: [facility] [place] Status: Signed Intake Vital Signs 08/29/24 09:07 01/13/25 08:59 01/29/25 08:27 01/29/25 08:28 Height 5 ft 4 in 5 ft 4 in 5 ft 4 in 5 ft 4 in Weight: 150 lb 4 oz BMI 25.7 BP 107/73 Intake Visit Reasons: 30 WK OB Cleaner Touch Up Worker Required: No Is patient in pain?: No Allergies No Known Allergies Allergy (Verified 01/29/25 08:27) Medications ???Medication ???Instructions ???Recorded ???Confirmed ???Type vitamins no.163-iron tab PO 08/18/22 01/29/25 History bis-gly 20 mg-folate no.10 1 mg tablet (PNV Tabs 20-1) esomeprazole magnesium 20 mg 20 mg PO DAILY 09/29/22 01/29/25 H istory capsule,delayed release miconazole nitrate 2 % vaginal 1 appful vaginal QHS 7 days #45 01/29/25 Rx cream grams Last Menstrual Period: 06/26/24 Zika: Zika virus screening: Negative : No PFSH PFSH Medical History Normal course Vaginal delivery Family hx of colon cancer Surgical History History of tonsillectomy and adenoidectomy Hx of wisdom tooth extraction Family History Grandfather Colon cancer, Onset Age: 78 Father Hyperlipidemia Social History adopted: No household members: spouse and children housing: house number of children: 2 current occupational status: unemployed current occupation: [employer] current occupational exposures/hazards: No pets and animals: Yes pets and animals: dog(s) history of recent travel: No sexually active: Yes Smoking Status: Never smoker alcohol intake: never substance use type: does not use well-balanced diet: daily or most days caffeine: Yes Type: coffee Number of servings: 1 eating out: rarely or never during the past year weight has: remained stable what type of physical activity do you participate in: walking frequency: 1-2 times per week duration: 30-45 minutes/day 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 Date Name GA/Weeks Outcome Route Bth Weight Gen Labor Lgth Anesthesia Del Locatn Provider FOB 04/07/23 [place] 40 live - full term 7lbs 15oz Male epidural [facility] Sagrario Saenz [place] Delivery Date: 04/07/23 Last Updated by: Jeanne Ramirez see problem list for complications, and SM IAL 40 boy [place]. HPI 30 WK OB Details: DELPHINE SHAH is a 24 year old who presents for routine OB visit. OB Visit TAWANNA Calculator Estimated Delivery Date Method Current WG Current Estimate 04/02/25 LMP (Certain) 31w 0d Other Estimates 04/02/25 Ultrasound #1 31w 0d Expected Delivery Route/Plan Labor Preferences- CB/BF classes: [] labor support person: [] labor intervention preferences: [] pain management options preferred: [] cut cord/dad catch: [] : [] PP control planned: [] discussed possible routes of delivery and associated risks: [] special requests: [] Specific Issue/Plans Covid status: [] Flu vaccine: [] Tdap vaccine: [] Rhogam: [] LARC form signed: [] Problem list reviewed and updated with the most current plan of care details and appropriate orders placed. Relevant counseling for the gestational age provided. Continue routine care and follow up unless otherwise noted in visit notes/problem list details Initial Weight: 119 lb Date -???-???-???-???-???- ???-???-???-???-???-? ??-???- EGA Weight BP Urine Prot -???-???-???-???-???- ???-???-???-???-???-? ??-???- Glucose FHR FuHt Pres Dilation -???-???-???-???-???- ???-???-???-???-???-? ??-???- Effaced St Visit Note 08/29/24 -???-???-???-???-???- ???-???-???-???-???-? ??-???- 9w 1d 119 lb (+0 oz) 116/78 -???-???-???-???-???- ???-???-???-???-???-? ??-???- 171 -???-???-???-???-???- ???-???-???-???-???-? ??-???- KW- CRL cons with dates. Declines NIPT. 10/04/24 -???-???-???-???-???- ???-???-???-???-???-? ??-???- 14w 2d 124 lb 8 oz (+5 lb 8 oz) 116/78 Negative -???-???-???-???-???- ???-???-???-???-???-? ??-???- Negative 147 -???-???-???-???-???- ???-???-???-???-???-? ??-???- (more content not included)... Normal [facility] Laboratory - Chemistry and C hemistry - challengeOrdered By: Meenu Pozo on 01-13-2025 Glucose Ql (U) Negative [facility] Laboratory - UrinalysisOrder ed By: Meenu Pozo on 01-13-2025 Protein Ql (U) Negative [facility] Automation Design Engineer Office Visit Reporton 01-13-2025 Automation Design Engineer Office Visit Report [facility]'s [address], [address] [place] [address] OFFICE VISIT Date of Service: 01/13/25 MR#: [id number] Acct: [id number] Name: DELPHINE SHAH Rep #: [id number] : 2000 Provider: Dr. Meenu Lamar DO Age/Sex: 24/F Location: [facility] [place] Status: Signed Intake Vital Signs 08/29/24 09:07 10/04/24 11:59 12/27/24 09:50 01/13/25 08:58 01/13/25 08:59 Height 5 ft 4 in 5 ft 4 in 5 ft 4 in 5 ft 4 in 5 ft 4 in Weight: 147 lb 4 oz BMI 25.2 BP 114/77 Intake Visit Reasons: 28 WK OB/GLUCOSE Cleaner Touch Up Worker Required: No Is patient in pain?: No Allergies No Known Allergies Allergy (Verified 01/13/25 08:58) Medications ???Medication ???Instructions ???Recorded ???Confirmed ???Type vitamins no.163-iron tab PO 08/18/22 01/13/25 History bis-gly 20 mg-folate no.10 1 mg tablet (PNV Tabs 20-1) esomeprazole magnesium 20 mg 20 mg PO DAILY 09/29/22 01/13/25 H istory capsule,delayed release Last Menstrual Period: 06/26/24 Zika: Zika virus screening: Negative : No PFSH PFSH Medical History Normal course Vaginal delivery Family hx of colon cancer Surgical History History of tonsillectomy and adenoidectomy Hx of wisdom tooth extraction Family History Grandfather Colon cancer, Onset Age: 78 Father Hyperlipidemia Social History adopted: No household members: spouse and children housing: house number of children: 2 current occupational status: unemployed current occupation: [employer] current occupational exposures/hazards: No pets and animals: Yes pets and animals: dog(s) history of recent travel: No sexually active: Yes Smoking Status: Never smoker alcohol intake: never substance use type: does not use well-balanced diet: daily or most days caffeine: Yes Type: coffee Number of servings: 1 eating out: rarely or never during the past year weight has: remained stable what type of physical activity do you participate in: walking frequency: 1-2 times per week duration: 30-45 minutes/day melisa/anabaptist: [employer] seatbelt use: always do you feel safe at home: Yes additional social history: : [place] History 2 Elective abortions Hx Para 1 Spontaneous abortions Hx # Term Pregnancies 1 Ectopic pregnancies Hx # Pregnancies Multiple births # of living children 1 Past Pregnancies Del. Date Name GA/Weeks Outcome Route Bth Weight Gen Labor Lgth Anesthesia Del Locatn Provider FOB 04/07/23 [place] 40 live - full term 7lbs 15oz Male epidural [facility] Sagrario Saenz [place] Delivery Date: 04/07/23 Last Updated by: Jeanne Ramirez see problem list for complications, and SM IAL 40 boy [place]. HPI 28 WK OB/GLUCOSE Details: DELPHINE SHAH is a 24 year old who presents for routine OB visit. OB Visit TAWANNA Calculator Estimated Delivery Date Method Current WG Current Estimate 04/02/25 LMP (Certain) 28w 5d Other Estimates 04/02/25 Ultrasound #1 28w 5d Expected Delivery Route/Plan Labor Preferences- CB/BF classes: [] labor support person: [] labor intervention preferences: [] pain management options preferred: [] cut cord/dad catch: [] : [] PP control planned: [] discussed possible routes of delivery and associated risks: [] special requests: [] Specific Issue/Plans Covid status: [] Flu vaccine: [] Tdap vaccine: [] Rhogam: [] LARC form signed: [] Problem list reviewed and updated with the most current plan of care details and appropriate orders placed. Relevant counseling for the gestational age provided. Continue routine care and follow up unless otherwise noted in visit notes/problem list details Initial Weight: 119 lb Date -???-???-???-???-???- ???-???-???-???-???-? ??-???- EGA Weight BP Urine Prot -???-???-???-???-???- ???-???-???-???-???-? ??-???- Glucose FHR FuHt Pres Dilation -???-???-???-???-???- ???-???-???-???-???-? ??-???- Effaced St Visit Note 08/29/24 -???-???-???-???-???- ???-???-???-???-???-? ??-???- 9w 1d 119 lb (+0 oz) 116/78 -???-???-???-???-???- ???-???-???-???-???-? ??-???- 171 -???-???-???-???-???- ???-???-???-???-???-? ??-???- KW- CRL cons with dates. Declines NIPT. 10/04/24 -???-???-???-???-???- ???-???-???-???-???-? ??-???- 14w 2d 124 lb 8 oz (+5 lb 8 oz) 116/78 Negative -???-???-???-???-???- ???-???-???-???-???-? ??-???- Negative 147 -???-???-???-???-???- ???-???-???-???-???-? ??-???- KW- no vb/cr amping. US ordered (more content not included)... Normal [facility] Gestational GTT 3HR 100gon 0 12-31-2024 3HR GTT- GEST. High [facility] Comment on above: Order Comment: Y Result Comment: FAST ING 109 H Col: 12/31/24 0807 GLUCOSE TOLERANCE TEST FOR Reference Interval GESTATIONAL DIABETES Fasting <105 mg/dL 1 hour <190 mg/dl 2 hour <165 mg/dl 3 hour <145 mg/dl 1 HR GLU 160 Col: 12/31/24 1005 2 HR GLU 91 Col: 12/31/24 1107 3 HR GLU 56 Col: 12/31/24 1208 Performed By: #### L 500.4710 ####[facility] [id number] [place], [address] Glucose tolerance 3 hours ge stational panelOrdered By: Rebekah Adams on 12-31-2024 Gestational Glucose Tolerance Test See comment [facility] Comment on above: FASTING 109 H Col: 0 12/31/24 0807GLUCOSE TOLERANCE TEST FOR Reference Interval GESTATIONAL DIABETES Fasting <105 mg/dL 1 hour <190 mg/dl 2 hour <165 mg/dl 3 hour <145 mg/dl 1 HR GLU 160 Col: 12/31/24 1005 2 HR GLU 91 Col: 12/31/24 1107 3 HR GLU 56 Col: 12/31/24 1208 Quantitative serum or plasma 3 hour gestational glucose tolerance panelOrdered By: Rebekah Adams on 12-31-2024 Glucose tolerance 3 hours gestational panel See comment [facility] Comment on above: FASTING 109 H Col: 0 12/31/24 0807GLUCOSE TOLERANCE TEST FOR Reference Interval GESTATIONAL DIABETES Fasting <105 mg/dL 1 hour <190 mg/dl 2 hour <165 mg/dl 3 hour <145 mg/dl 1 HR GLU 160 Col: 12/31/24 1005 2 HR GLU 91 Col: 12/31/24 1107 3 HR GLU 56 Col: 12/31/24 1208 Genital Culture Comprehensiv emily 12-30-2024 VAC Reason for Exam: vaginal discharge Normal vaginal kedar isolated. No Gardnerella, Neisseria or beta-hemolytic Streptococcus isolated. Presumptive C albicans Amount Growth 1+ Normal [facility] Comment on above: Performed By: #### M 100.3200, M100.2000 #### [facility] Laboratory [facility] [address] [place], [place], [id number] Absolute lymphocyte countOrd ered By: Sagrario Saenz on 12-27-2024 Lymphocytes Auto (Unsp spec) [#/Vol] 2.17 10*3/uL 0.83-4.51 [facility] Absolute neutrophil countOrd ered By: Sagrario Saenz on 12-27-2024 Neutrophils (Bld) [#/Vol] 5.2 10*3/uL 2.0-7.7 [facility] Automated lymphocyte count a s percentage of total leukocytesOrdered By: Sagrario Saenz on 12-27-2024 Lymphocytes/100 WBC Auto (Unsp spec) 27.1 % 19-41 [facility] Basophil percentageOrdered B y: Sagrario Saenz on 12-27-2024 Basophils/100 WBC (Bld) 0.2 % 0-1 [facility] CBC W/Diff, Automatedon 12-01 Absolute Lymph 2.17 X10 3/uL Normal 0.83-4.51 [facility] Comment on above: Performed By: #### L 501.0250, L3890.6006, L509.8002, L100.0100 #### [facility] [address] [place], [address] Absolute Neut 5.2 X10 3/uL Normal 2.0-7.7 [facility] Comment on above: Performed By: #### L 501.0250, L3890.6006, L509.8002, L100.0100 #### [facility] [address] [place], [address] Basophils/100 WBC (Bld) 0.2 % Normal 0-1 [facility] Comment on above: Performed By: #### L 501.0250, L3890.6006, L509.8002, L100.0100 #### [facility] [address] [place], [address] Eosinophils/100 WBC (Bld) 1.5 % Normal 0-5 [facility] Comment on above: Performed By: #### L 501.0250, L3890.6006, L509.8002, L100.0100 #### [facility] [address] [place], [address] Erythrocyte distribution width (RBC) [Ratio] 13.2 % Normal 11.6-14.6 [facility] Comment on above: Performed By: #### L 501.0250, L3890.6006, L509.8002, L100.0100 #### [facility] [address] [place], [address] Hematocrit (Bld) [Volume fraction] 37.9 % Normal 37-47 [facility] Comment on above: Performed By: #### L 501.0250, L3890.6006, L509.8002, L100.0100 #### [facility] [address] [place], [address] Hemoglobin (Bld) [Mass/Vol] 12.4 g/dL Normal 12.0-15.0 [facility] Comment on above: Performed By: #### L 501.0250, L3890.6006, L509.8002, L100.0100 #### [facility] [address] [place], [address] IG% 0.400 Normal 0.0-0.9 [facility] Comment on above: Result Comment: IG% - Immature Granulocytes (promyelocytes, myelocytes and metamyelocytes) > 1% indicates that a LEFT SHIFT is Present. Performed By: #### L 501.0250, L3890.6006, L509.8002, L100.0100 #### [facility] [address] [place], [address] Lymphocytes/100 WBC (Bld) 27.1 % Normal 19-41 [facility] Comment on above: Performed By: #### L 501.0250, L3890.6006, L509.8002, L100.0100 #### [facility] [address] [place], [address] MCH (RBC) [Entitic mass] 32.0 pg Normal 27.0-32.0 [facility] Comment on above: Performed By: #### L 501.0250, L3890.6006, L509.8002, L100.0100 #### [facility] [address] [place], [address] MCHC (RBC) [Mass/Vol] 32.7 g/dL Normal 32-36 [facility] Comment on above: Performed By: #### L 501.0250, L3890.6006, L509.8002, L100.0100 #### [facility] [address] [place], [address] MCV (RBC) [Entitic vol] 97.7 fL Normal 81-99 [facility] Comment on above: Performed By: #### L 501.0250, L3890.6006, L509.8002, L100.0100 #### [facility] [address] [place], [address] Monocytes/100 WBC (Bld) 5.5 % Normal 0-10 [facility] Comment on above: Performed By: #### L 501.0250, L3890.6006, L509.8002, L100.0100 #### [facility] [address] [place], [address] Neutrophils/100 WBC (Bld) 65.3 % Normal 47-70 [facility] Comment on above: Performed By: #### L 501.0250, L3890.6006, L509.8002, L100.0100 #### [facility] [address] [place], [address] Nucleated RBC (Bld) [#/Vol] 0 10*3/uL Normal 0-5 [facility] Comment on above: Performed By: #### L 501.0250, L3890.6006, L509.8002, L100.0100 #### [facility] [address] [place], [address] Platelet mean volume (Bld) [Entitic vol] 9.6 fL Normal 6.2-12.0 [facility] Comment on above: Performed By: #### L 501.0250, L3890.6006, L509.8002, L100.0100 #### [facility] [address] [place], [address] Platelets (Bld) [#/Vol] 211 10*3/uL Normal 150-450 [facility] Comment on above: Performed By: #### L 501.0250, L3890.6006, L509.8002, L100.0100 #### [facility] [address] [place], [address] RBC (Bld) [#/Vol] 3.88 10*6/uL Low 4.2-5.4 [facility] Comment on above: Performed By: #### L 501.0250, L3890.6006, L509.8002, L100.0100 #### [facility] [address] [place], [address] RDW SD 47.2 fl High 35.1-43.9 [facility] Comment on above: Performed By: #### L 501.0250, L3890.6006, L509.8002, L100.0100 #### [facility] [address] [place], [address] WBC (Bld) [#/Vol] 8.0 10*3/uL Normal 4.4-11.0 [facility] Comment on above: Performed By: #### L 501.0250, L3890.6006, L509.8002, L100.0100 #### [facility] [address] [place], [address] Eosinophil percentageOrdered By: Sagrario Saenz on 12-27-2024 Eosinophils/100 WBC (Bld) 1.5 % 0-5 [facility] Erythrocyte distribution wid th ratioOrdered By: Sagrario Saenz on 12-27-2024 Erythrocyte distribution width (RBC) [Ratio] 13.2 % 11.6-14.6 [facility] Erythrocyte distribution wid th standard deviationOrdered By: Sagrario Saenz on 12-27-2024 Erythrocyte distribution width (RBC) [Entitic vol] 47.2 fL High 35.1-43.9 [facility] Erythrocyte distribution width (RBC) [Ratio] 47.2 fl High 35.1-43.9 [facility] Genital cultureOrdered By: Nubia Adams on 12-27-2024 Genital Culture Presumptive C albicans Abnormal [facility] Glucose 60min post-GTT OBOrd ered By: Sagrario Saenz on 12-27-2024 Glucose [Mass/Vol] 136 mg/dL [facility] Glucose Challenge Gest 1H 50 moreno 12-27-2024 GLU GEST 50g 1H 136 mg/dL Normal [facility] Comment on above: Performed By: #### L 501.0250, L3890.6006, L509.8002, L100.0100 #### [facility] [address] [place], [place], [address] Gram Stainon 12-27-2024 GS Reason for Exam: vaginal discharge Gram Stain 4+ White Blood Cells 4+ Gram positive rods No Gram negative diplococci 1+ Hyphae Score = 0 Interpretation: 0-3 Normal, 4-6 Intermediate, 7-10 Positive BV Normal [facility] Comment on above: Performed By: #### M 100.3200, M100.2000 #### [facility] [address] [place], [place], [address] Gram stainOrdered By: Jazmine Adams on 12-27-2024 Microscopic observation Gram stain Nom (Unsp spec) [facility] Hematocrit Auto (Bld) [Volum e fraction]Ordered By: Sagrario Saenz on 12-27-2024 Hematocrit (Bld) [Volume fraction] 37.9 % 37-47 [facility] Hemoglobin measurementOrdere d By: Sagrario Saenz on 12-27-2024 Hemoglobin (Bld) [Mass/Vol] 12.4 g/dL 12.0-15.0 [facility] Immature granulocytes/100 WB C Auto (Bld)Ordered By: Sagrario Saenz on 12-27-2024 Immature granulocytes/100 WBC (Bld) 0.400 % 0.0-0.9 [facility] Comment on above: IG% - Immature Granu locytes (promyelocytes, myelocytes and metamyelocytes) > 1% indicates that a LEFT SHIFT is Present. L3890.6006on 12-27-2024 HIV Non-Reactive Normal Nonreactive [facility] Comment on above: Result Comment: Non- Reactive Reactive Repeatedly reactive samples must be confirmed according to CDC recommended confirmatory algorithms. The subresults for either HIVAG or AHIV can be used as an aid in the selection of the confirmation algorithm for reactive samples. Send out specimens with Reactive results to [facility] for confirmation. Order the HIV antibody detection and differentiation: lc#[id number] Performed By: #### L 501.0250, L3890.6006, L509.8002, L100.0100 ####[facility] [address] [place], [place], [address] L509.8002on 12-27-2024 Syphilis Abs Non-Reactive Normal Nonreactive [facility] Comment on above: Performed By: #### L 501.0250, L3890.6006, L509.8002, L100.0100 ####[facility] [address] [place], [address] Laboratory - Chemistry and C hemistry - challengeOrdered By: Rebekah Adams on 12-27-2024 Glucose Ql (U) Negative [facility] Laboratory - UrinalysisOrder ed By: Rebekah Adams on 12-27-2024 Protein Ql (U) Negative [facility] Lymphocytes Auto (Unsp spec) [#/Vol]Ordered By: Sagrario Saenz on 12-27-2024 Lymphocytes (Bld) [#/Vol] 2.17 10*3/uL 0.83-4.51 [facility] Lymphocytes/100 WBC Auto (Un sp spec)Ordered By: Sagrario Saenz on 12-27-2024 Lymphocytes/100 WBC (Bld) 27.1 % 19-41 [facility] MCV (mean corpuscular volume ) determinationOrdered By: Sagrario Saenz on 12-27-2024 MCV (RBC) [Entitic vol] 97.7 fL 81-99 [facility] Mean corpuscular hemoglobin (MCH) determinationOrdered By: Sagrario Saenz on 12-27-2024 MCH (RBC) [Entitic mass] 32.0 pg 27.0-32.0 [facility] Mean corpuscular hemoglobin concentration (MCHC) determinationOrdered By: Sagrario Saenz on 12-27-2024 MCHC (RBC) [Mass/Vol] 32.7 g/dL 32-36 [facility] Mean platelet volume determi nationOrdered By: Sagrario Saenz on 12-27-2024 Platelet mean volume (Bld) [Entitic vol] 9.6 fL 6.2-12.0 [facility] Monocyte percentageOrdered B y: Sagrario Saenz on 12-27-2024 Monocytes/100 WBC (Bld) 5.5 % 0-10 [facility] Neutrophil percentageOrdered By: Sagrario Saenz on 12-27-2024 Neutrophils/100 WBC (Bld) 65.3 % 47-70 [facility] No Panel InformationOrdered By: Sagrario Saenz on 12-27-2024 HIV (1&2) Antibody Non-Reactive Nonreactive [facility] Comment on above: Non-ReactiveReactive Repeatedly reactive samples must be confirmed according to CDC recommended confirmatory algorithms. The subresults for either HIVAG or AHIV can be used as an aid in the selection of the confirmation algorithm for reactive samples.Send out specimens with Reactive results to [facility] for confirmation.Order the HIV antibody detection and differentiation: #[id number] Syphilis Total Antibody Non-Reactive Nonreactiv e [facility] Nucleated red blood cell per centageOrdered By: Sagrario Saenz on 12-27-2024 Nucleated RBC/100 WBC (Bld) [Ratio] 0 % 0-5 [facility] Automation Design Engineer Office Visit Reporton 12-27-2024 Automation Design Engineer Office Visit Report [facility], [address] [place] [address] OFFICE VISIT Date of Service: 12/27/24 MR#: [id number] Acct: [id number] Name: DELPHINE SHAH Rep #: [id number] : 2000 Provider: ULISSES gudino Age/Sex: 24/F Location: [facility] [place] Status: Signed Intake Vital Signs 08/29/24 09:07 11/28/24 09:08 12/27/24 09:48 12/27/24 09:50 Height 5 ft 4 in 5 ft 4 in 5 ft 4 in 5 ft 4 in Weight: 144 lb BMI 24.7 BP 109/76 Intake Visit Reasons: 25 WK OB Cleaner Touch Up Worker Required: No Is patient in pain?: No Allergies No Known Allergies Allergy (Verified 12/27/24 09:48) Medications ???Medication ???Instructions ???Recorded ???Confirmed ???Type vitamins no.163-iron tab PO 08/18/22 12/27/24 History bis-gly 20 mg-folate no.10 1 mg tablet (PNV Tabs 20-1) esomeprazole magnesium 20 mg 20 mg PO DAILY 09/29/22 12/27/24 H istory capsule,delayed release Last Menstrual Period: 06/26/24 Zika: Zika virus screening: Negative : No Have you fallen in the past year?: No PFSH PFSH Medical History Normal course Vaginal delivery Family hx of colon cancer Surgical History History of tonsillectomy and adenoidectomy Hx of wisdom tooth extraction Family History Grandfather Colon cancer, Onset Age: 78 Father Hyperlipidemia Social History adopted: No household members: spouse and children housing: house number of children: 2 current occupational status: unemployed current occupation: [employer] current occupational exposures/hazards: No pets and animals: Yes pets and animals: dog(s) history of recent travel: No sexually active: Yes Smoking Status: Never smoker alcohol intake: never substance use type: does not use well-balanced diet: daily or most days caffeine: Yes Type: coffee Number of servings: 1 eating out: rarely or never during the past year weight has: remained stable what type of physical activity do you participate in: walking frequency: 1-2 times per week duration: 30-45 minutes/day melisa/anabaptist: [employer] seatbelt use: always do you feel safe at home: Yes additional social history: : [place] [employer] [place] History 2 Elective abortions Hx Para 1 Spontaneous abortions Hx # Term Pregnancies 1 Ectopic pregnancies Hx # Pregnancies Multiple births # of living children 1 Past Pregnancies Del. Date Name GA/Weeks Outcome Route Bth Weight Infant Gen Labor Lgth Anesthesia Del Locatn Provider FOB 04/07/23 [place] 40 live - full term 7lbs 15oz Male epidural [facility] Sagrario Schaeffer Delivery Date: 04/07/23 Last Updated by: Jeanne Ramirez see problem list for complications, and SM IAL 40 boy [place]. HPI 25 WK OB Details: DELPHINE SHAH is a 24 year old who presents for routine OB visit. OB Visit TAWANNA Calculator Estimated Delivery Date Method Current WG Current Estimate 04/02/25 LMP (Certain) 26w 2d Other Estimates 04/02/25 Ultrasound #1 26w 2d Expected Delivery Route/Plan Labor Preferences- CB/BF classes: [] labor support person: [] labor intervention preferences: [] pain management options preferred: [] cut cord/dad catch: [] : [] PP control planned: [] discussed possible routes of delivery and associated risks: [] special requests: [] Specific Issue/Plans Covid status: [] Flu vaccine: [] Tdap vaccine: [] Rhogam: [] LARC form signed: [] Problem list reviewed and updated with the most current plan of care details and appropriate orders placed. Relevant counseling for the gestational age provided. Continue routine care and follow up unless otherwise noted in visit notes/problem list details Initial Weight: 119 lb Date -???-???-???-???-???- ???-???-???-???-???-? ??-???- EGA Weight BP Urine Prot -???-???-???-???-???- ???-???-???-???-???-? ??-???- Glucose FHR FuHt Pres Dilation -???-???-???-???-???- ???-???-???-???-???-? ??-???- Effaced St Visit Note 08/29/24 -???-???-???-???-???- ???-???-???-???-???-? ??-???- 9w 1d 119 lb (+0 oz) 116/78 -???-???-???-???-???- ???-???-???-???-???-? ??-???- 171 -???-???-???-???-???- ???-???-???-???-???-? ??-???- KW- CRL cons with dates. Declines NIPT. 10/04/24 -???-???-???-???-???- ???-???-???-???-???-? ??-???- 14w 2d 124 lb 8 oz (+5 lb 8 oz) 116/78 Negative -???-???-???-???-???- ???-???-???-???-???-? ??-???- Negative 147 -???-???-???-???-???- ???-???-???-???-???-? ??-???- KW- no vb/cr amping. US ordered. movement and fht with US today (more content not included)... Normal [facility] Platelet countOrdered By: Parrish Saenz on 12-27-2024 Platelets (Bld) [#/Vol] 211 10*3/uL 150-450 [facility] RBC Auto (Bld) [#/Vol]Ordere d By: Sagrario aSenz on 12-27-2024 RBC (Bld) [#/Vol] 3.88 10*6/uL Low 4.2-5.4 [facility] White blood cell (WBC) count Ordered By: Sagrario Saenz on 12-27-2024 WBC (Bld) [#/Vol] 8.0 10*3/uL 4.4-11.0 [facility] Laboratory - Chemistry and C hemistry - challengeOrdered By: Sagrario Saenz on 11-28-2024 Glucose Ql (U) Negative [facility] Laboratory - UrinalysisOrder ed By: Sagrario Saenz on 11-28-2024 Protein Ql (U) Negative [facility] Automation Design Engineer Office Visit Reporton 11-28-2024 Automation Design Engineer Office Visit Report [facility] [address] [place] [address], [address] [place] [address] OFFICE VISIT Date of Service: 11/28/24 MR#: [id number] Acct: [id number] Name: DELPHINE SHAH Rep #: [id number] : 2000 Provider: Dr. Sagrario freeman MD Age/Sex: 24/F Location: [facility] [place] Status: Signed Intake Vital Signs 08/29/24 09:07 11/06/24 10:12 11/28/24 09:08 Height 5 ft 4 in 5 ft 4 in 5 ft 4 in Weight: 139 lb 8 oz BMI 23.9 BP 106/71 Intake Visit Reasons: 21 WK OB Cleaner Touch Up Worker Required: No Is patient in pain?: No Feel stressed/tense/nervou s/anxious/difficulty sleeping: not at all Allergies No Known Allergies Allergy (Verified 11/28/24 09:09) Medications ???Medication ???Instructions ???Recorded ???Confirmed ???Type vitamins no.163-iron tab PO 08/18/22 11/28/24 History bis-gly 20 mg-folate no.10 1 mg tablet (PNV Tabs 20-1) esomeprazole magnesium 20 mg 20 mg PO DAILY 09/29/22 11/28/24 H istory capsule,delayed release terconazole 0.4 % vaginal cream 1 appful vaginal QHS 7 days #45 11/28/24 Rx grams Last Menstrual Period: 06/26/24 Zika: Zika virus screening: Negative : No Have you fallen in the past year?: No PFSH PFSH Medical History Normal course Vaginal delivery Family hx of colon cancer Surgical History History of tonsillectomy and adenoidectomy Hx of wisdom tooth extraction Family History Grandfather Colon cancer, Onset Age: 78 Father Hyperlipidemia Social History adopted: No household members: spouse and children housing: house number of children: 2 current occupational status: unemployed current occupation: [employer] current occupational exposures/hazards: No pets and animals: Yes pets and animals: dog(s) history of recent travel: No sexually active: Yes Smoking Status: Never smoker alcohol intake: never substance use type: does not use well-balanced diet: daily or most days caffeine: Yes Type: coffee Number of servings: 1 eating out: rarely or never during the past year weight has: remained stable what type of physical activity do you participate in: walking frequency: 1-2 times per week duration: 30-45 minutes/day 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 Date Name GA/Weeks Outcome Route Bth Weight Infant Gen Labor Lgth Anesthesia Del Locatn Provider FOB 04/07/23 [place] 40 live - full term 7lbs 15oz Male epidural [facility] Sagrario Schaeffer Delivery Date: 04/07/23 Last Updated by: Jeanne Ramirez see problem list for complications, and SM IAL 40 boy [place]. HPI 21 WK OB Details: DELPHINE SHAH is a 24 year old who presents for routine OB visit. OB Visit TAWANNA Calculator Estimated Delivery Date Method Current WG Current Estimate 04/02/25 LMP (Certain) 22w 1d Other Estimates 04/02/25 Ultrasound #1 22w 1d Expected Delivery Route/Plan Labor Preferences- CB/BF classes: [] labor support person: [] labor intervention preferences: [] pain management options preferred: [] cut cord/dad catch: [] : [] PP control planned: [] discussed possible routes of delivery and associated risks: [] special requests: [] Specific Issue/Plans Covid status: [] Flu vaccine: [] Tdap vaccine: [] Rhogam: [] LARC form signed: [] Problem list reviewed and updated with the most current plan of care details and appropriate orders placed. Relevant counseling for the gestational age provided. Continue routine care and follow up unless otherwise noted in visit notes/problem list details Initial Weight: 119 lb Date -???-???-???-???-???- ???-???-???-???-???-? ??-???- EGA Weight BP Urine Prot -???-???-???-???-???- ???-???-???-???-???-? ??-???- Glucose FHR FuHt Pres Dilation -???-???-???-???-???- ???-???-???-???-???-? ??-???- Effaced St Visit Note 08/29/24 -???-???-???-???-???- ???-???-???-???-???-? ??-???- 9w 1d 119 lb (+0 oz) 116/78 -???-???-???-???-???- ???-???-???-???-???-? ??-???- 171 -???-???-???-???-???- ???-???-???-???-???-? ??-???- KW- CRL cons with dates. Declines NIPT. 10/04/24 -???-???-???-???-???- ???-???-???-???-???-? ??-???- 14w 2d 124 lb 8 oz (+5 lb 8 oz) 116/78 Negative -???-???-???-???-??? (more content not included)... [facility] OB Anatomy Scanon 11-13-2024 OB Anatomy Scan [facility] [address] [place] [address] OB Anatomy Scan MR#: [id number] Acct: [id number] Name: DELPHINE SHAH Rep #: [id number] : 2000 F 24 From: Arnulfo kovacs MD PCP: Dr. Hemanth Lott MD Status: REG CLI Study: OB Anatomy Scan Date of Exam: 11/13/24 Exam# [id number] Ordering Dr: Jayshree Garza [facility] [id number] STUDY: SECOND AND THIRD TRIMESTER OBSTETRICAL ULTRASOUND REASON FOR EXAM: Female, 24 years old anatomy LMP: June 26, 2024. TECHNIQUE: Transabdominal and Transvaginal TECHNICAL QUALITY: Adequate. PRIOR ULTRASOUND: None. FINDINGS: There is a single intrauterine fetus. The fetus is in a breech presentation. There is demonstrated cardiac activity with a heart rate of 141 bpm. There is a normal amniotic fluid volume. The largest amniotic fluid pocket measures 4.2 cm. The amniotic fluid index (WHITNEY) is within normal limits. The placenta is anterior in location and is not low lying. There are Grade 0 placental changes. The cervix measures 4.1 cm in length. The bilateral adnexal regions are normal. BIOMETRY: BPD: 4.7 cm: 20 weeks, 2 days: 62% HC: 17.8 cm: 20 weeks, 2 days: 55% AC: 15.1 cm: 20 weeks, 2 days: 54% FL: 3.1 cm: 19 weeks, 5 days: 33% CI: 77% FL/BPD: 67% FL/HC: 18% FL/AC: 21% HC/AC: 1.18 age by current US: 20 weeks, 2 days. TAWANNA by current US: March 31, 2025. Estimated weight: 337 grams, +/- 50 grams, 51% %. Age by LMP: 20 weeks, 0 days. TAWANNA by LMP: April 02, 2025. ANATOMY: Gender: Indeterminant Cranium: Normal lateral ventricles. Normal choroid plexus. Normal cerebellum. Normal cisterna magna. Normal face, nose and lips. Chest: Normal 4-chamber heart. Abdomen/Pelvis: Normal diaphragm. Normal stomach. Normal abdominal wall. Normal cord insertion. Normal 3 vessel cord. Normal kidneys. Normal bladder. Spine: Normal cervical spine. Normal thoracic spine. Normal lumbar spine. The sacrum is not well visualized due to position. Extremities: Normal bilateral upper extremities. Normal bilateral lower extremities. US/OB Anatomy Scan IMPRESSION: Single live intrauterine gestation with mean gestational age of 20 weeks and 2 days. Electronically Signed: Arnulfo Angulo MD at 15:42 EST Reading Location ID and State: [address] [place] [address] , Service support , CC: ULISSES Garza; Dr. Hemanth Lott MD Sports Team Marketing Intern: Signed Normal [facility] Laboratory - Chemistry and C hemistry - challengeon 11-06-2024 Glucose Ql (U) Negative [facility] Laboratory - Urinalysison Protein Ql (U) Negative [facility] Automation Design Engineer Office Visit Reporton 11-06-2024 Automation Design Engineer Office Visit Report [facility]'s [address], [address] [place] [address] OFFICE VISIT Date of Service: 11/06/24 MR#: [id number] Acct: [id number] Name: DELPHINE SHAH Rep #: [id number] : 2000 Provider: ULISSES Osborn ams Age/Sex: 24/F Location: [facility] [place] Status: Signed Intake Vital Signs 08/29/24 09:07 10/04/24 11:59 11/06/24 09:59 Height 5 ft 4 in 5 ft 4 in 5 ft 4 in Weight: 135 lb 8 oz BMI 23.2 BP 110/73 Intake Visit Reasons: 17 WK OB *pt req this date/time Allergies No Known Allergies Allergy (Verified 11/06/24 09:54) Medications ???Medication ???Instructions ???Recorded ???Confirmed ???Type vitamins no.163-iron tab PO 08/18/22 11/06/24 History bis-gly 20 mg-folate no.10 1 mg tablet (PNV Tabs 20-1) esomeprazole magnesium 20 mg 20 mg PO DAILY 09/29/22 11/06/24 History capsule,delayed release Last Menstrual Period: 06/26/24 : No PFSH PFSH Medical History Normal course Vaginal delivery Family hx of colon cancer Surgical History History of tonsillectomy and adenoidectomy Hx of wisdom tooth extraction Family History Grandfather Colon cancer, Onset Age: 78 Father Hyperlipidemia Social History adopted: No household members: spouse and children housing: house number of children: 2 current occupational status: unemployed current occupation: [employer] current occupational exposures/hazards: No pets and animals: Yes pets and animals: dog(s) history of recent travel: No sexually active: Yes Smoking Status: Never smoker alcohol intake: never substance use type: does not use well-balanced diet: daily or most days caffeine: Yes Type: coffee Number of servings: 1 eating out: rarely or never during the past year weight has: remained stable what type of physical activity do you participate in: walking frequency: 1-2 times per week duration: 30-45 minutes/day melisa/anabaptist: [employer]ar[employer] seatbelt use: always do you feel safe at home: Yes additional social history: : Maksim Bee [place] History 2 Elective abortions Hx Para 1 Spontaneous abortions Hx # Term Pregnancies 1 Ectopic pregnancies Hx # Pregnancies Multiple births # of living children 1 Past Pregnancies Del. Date Name GA/Weeks Outcome Route Bth Weight Gen Labor Lgth Anesthesia Del Locatn Provider FOB 04/07/23 [place] 40 live - full term 7lbs 15oz Male epidural [facility] Sagrario Schaeffer Delivery Date: 04/07/23 Last Updated by: Jeanne Ramirez see problem list for complications, and SM IAL 40 boy [place]. HPI 17 WK OB *pt req this date/time Details: DELPHINE SHAH is a 24 year old who presents for routine OB visit. OB Visit TAWANNA Calculator Estimated Delivery Date Method Current WG Current Estimate 04/02/25 LMP (Certain) 19w 0d Other Estimates 04/02/25 Ultrasound #1 19w 0d Expected Delivery Route/Plan Labor Preferences- CB/BF classes: [] labor support person: [] labor intervention preferences: [] pain management options preferred: [] cut cord/dad catch: [] : [] PP control planned: [] discussed possible routes of delivery and associated risks: [] special requests: [] Specific Issue/Plans Covid status: [] Flu vaccine: [] Tdap vaccine: [] Rhogam: [] LARC form signed: [] Problem list reviewed and updated with the most current plan of care details and appropriate orders placed. Relevant counseling for the gestational age provided. Continue routine care and follow up unless otherwise noted in visit notes/problem list details Initial Weight: 119 lb Date -???-???-???-???-???- ???-???-???-???-???-? ??-???- EGA Weight BP Urine Prot -???-???-???-???-???- ???-???-???-???-???-? ??-???- Glucose FHR FuHt Pres Dilation -???-???-???-???-???- ???-???-???-???-???-? ??-???- Effaced St Visit Note 08/29/24 -???-???-???-???-???- ???-???-???-???-???-? ??-???- 9w 1d 119 lb (+0 oz) 116/78 -???-???-???-???-???- ???-???-???-???-???-? ??-???- 171 -???-???-???-???-???- ???-???-???-???-???-? ??-???- KW- CRL cons with dates. Declines NIPT. 10/04/24 -???-???-???-???-???- ???-???-???-???-???-? ??-???- 14w 2d 124 lb 8 oz (+5 lb 8 oz) 116/78 Negative -???-???-???-???-???- ???-???-???-???-???-? ??-???- Negative 147 -???-???-???-???-???- ???-???-???-???-???-? ??-???- KW- no vb/cr amping. US ordered. movement and fht with US today 11/06/24 -???-???-???-???-???- ???-???-???-???-???-? ??-???- 19w 0d 135 lb 8 oz (+16 lb 8 oz) 110/73 Negativ (more content not included)... Normal [facility] - Chemistry and C hemistry - challengeon 10-04-2024 Glucose Ql (U) Negative [facility] - Urinalysison Protein Ql (U) Negative [facility] Automation Design Engineer Office Visit Reporton 10-04-2024 Automation Design Engineer Office Visit Report [facility]'[address], [address] [place] [address] OFFICE VISIT Date of Service: 10/04/24 MR#: [id number] Acct: [id number] Name: DELPHINE SHAH Rep #: [id number] : 2000 Provider: ULISSES Osborn ams Age/Sex: 24/F Location: [facility] [place] Status: Signed Intake Vital Signs 05/31/24 08:03 08/29/24 09:07 10/04/24 11:57 10/04/24 11:59 Height 5 ft 4 in 5 ft 4 in 5 ft 4 in 5 ft 4 in Weight: 124 lb 8 oz BMI 21.3 BP 116/78 Intake Visit Reasons: 13wk OB Cleaner Touch Up Worker Required: No Is patient in pain?: No Allergies No Known Allergies Allergy (Verified 10/04/24 11:57) Medications ???Medication ???Instructions ???Recorded ???Confirmed ???Type vitamins no.163-iron tab PO 08/18/22 10/04/24 History bis-gly 20 mg-folate no.10 1 mg tablet (PNV Tabs 20-1) esomeprazole magnesium 20 mg 20 mg PO DAILY 09/29/22 10/04/24 History capsule,delayed release Last Menstrual Period: 06/26/24 Zika: Zika virus screening: Negative : No PFSH PFSH Medical History Normal course Vaginal delivery Family hx of colon cancer Surgical History History of tonsillectomy and adenoidectomy Hx of wisdom tooth extraction Family History Grandfather Colon cancer, Onset Age: 78 Father Hyperlipidemia Social History adopted: No household members: spouse and children housing: house number of children: 2 current occupational status: unemployed current occupation: [employer] current occupational exposures/hazards: No pets and animals: Yes pets and animals: dog(s) history of recent travel: No sexually active: Yes Smoking Status: Never smoker alcohol intake: never substance use type: does not use well-balanced diet: daily or most days caffeine: Yes Type: coffee Number of servings: 1 eating out: rarely or never during the past year weight has: remained stable what type of physical activity do you participate in: walking frequency: 1-2 times per week duration: 30-45 minutes/day 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 Date Name GA/Weeks Outcome Route Bth Weight Infant Gen Labor Lgth Anesthesia Del Locatn Provider FOB 04/07/23 [place] 40 live - full term 7lbs 15oz Male epidural [facility] Sagrario Schaeffer Delivery Date: 04/07/23 Last Updated by: Jeanne Ramirez see problem list for complications, and SM IAL 40 boy [place]. HPI 13wk OB Details: DELPHINE SHAH is a 24 year old who presents for routine OB visit. OB Visit TAWANNA Calculator Estimated Delivery Date Method Current WG Current Estimate 04/02/25 LMP (Certain) 14w 2d Other Estimates 04/02/25 Ultrasound #1 14w 2d Expected Delivery Route/Plan Labor Preferences- CB/BF classes: [] labor support person: [] labor intervention preferences: [] pain management options preferred: [] cut cord/dad catch: [] : [] PP control planned: [] discussed possible routes of delivery and associated risks: [] special requests: [] Specific Issue/Plans Covid status: [] Flu vaccine: [] Tdap vaccine: [] Rhogam: [] LARC form signed: [] Problem list reviewed and updated with the most current plan of care details and appropriate orders placed. Relevant counseling for the gestational age provided. Continue routine care and follow up unless otherwise noted in visit notes/problem list details Initial Weight: 119 lb Date -???-???-???-???-???- ???-???-???-???-???-? ??-???- EGA Weight BP Urine Prot -???-???-???-???-???- ???-???-???-???-???-? ??-???- Glucose FHR FuHt Pres Dilation -???-???-???-???-???- ???-???-???-???-???-? ??-???- Effaced St Visit Note 08/29/24 -???-???-???-???-???- ???-???-???-???-???-? ??-???- 9w 1d 119 lb (+0 oz) 116/78 -???-???-???-???-???- ???-???-???-???-???-? ??-???- 171 -???-???-???-???-???- ???-???-???-???-???-? ??-???- KW- CRL cons with dates. Declines NIPT. 10/04/24 -???-???-???-???-???- ???-???-???-???-???-? ??-???- 14w 2d 124 lb 8 oz (+5 lb 8 oz) 116/78 Negative -???-???-???-???-???- ???-???-???-???-???-? ??-???- Negative 147 -???-???-???-???-???- ???-???-???-???-???-? ??-???- KW- no vb/cr amping. US ordered. movement and fht with US today ACOG First Trim (more content not included)... Normal [facility] PAP I-G w/rfx hrHPV-Aptimaon 09-04-2024 ADEQ Comment Normal . [facility] Comment on above: Order Comment: Speci men Comment: [id number] Comment: Source.............Cervix;EndocervixSpecimen Comment: LMP / Prev Treat...[id number] Comment: Other..............Specimen Comment: No. of containers..01 ThinPrep Vial Result Comment: Sati sfactory for evaluation. Endocervical and/or squamous metaplastic cells (endocervical component) are present. Performed By: #### L 7400.0353, M100.2200, L7000.1800 ####[facility] [address] [place], [place], [id number] COMM . Normal . [facility] Comment on above: Order Comment: Speci men Comment: [id number] Comment: Source.............Cervix;EndocervixSpecimen Comment: LMP / Prev Treat...[id number] Comment: Other..............Specimen Comment: No. of containers..01 ThinPrep Vial Performed By: #### L 7400.0353, M100.2200, L7000.1800 ####[facility] [address] [place], [place], [phone] COMMENT Comment Normal . [facility] Comment on above: Order Comment: Speci men Comment: [id number] Comment: Source.............Cervix;EndocervixSpecimen Comment: LMP / Prev Treat...[id number] Comment: Other..............Specimen Comment: No. of containers..01 ThinPrep Vial Result Comment: This liquid based ThinPrep(R) pap test was screened with the use of an image guided system. Performed By: #### L 7400.0353, M100.2200, L7000.1800 ####[facility] [address] [place], [place], [id number] DIAG Comment Normal . [facility] Comment on above: Order Comment: Speci men Comment: [id number] Comment: Source.............Cervix;EndocervixSpecimen Comment: LMP / Prev Treat...[id number] Comment: Other..............Specimen Comment: No. of containers..01 ThinPrep Vial Result Comment: NEGA TIVE FOR INTRAEPITHELIAL LESION OR MALIGNANCY. FUNGAL ORGANISMS MORPHOLOGICALLY CONSISTENT WITH FREDY SPECIES ARE PRESENT. Performed By: #### L 7400.0353, M100.2200, L7000.1800 ####[facility] [address] [place], [address] HPV RFLX Comment Normal . [facility] Comment on above: Order Comment: Speci men Comment: [id number] Comment: Source.............Cervix;EndocervixSpecimen Comment: LMP / Prev Treat...[id number] Comment: Other..............Specimen Comment: No. of containers..01 ThinPrep Vial Result Comment: The HPV DNA reflex criteria were not met with this specimen result therefore, no HPV testing was performed. Performed at: [address] [id number] Bucket Chucker: Edwige Andrews MD, Phone: [phone] Performed By: #### L 7400.0353, M100.2200, L7000.1800 ####[facility] [address] [place], [address] PAPSMR Comment Normal . [facility] Comment on above: Order Comment: Speci men Comment: [id number] Comment: Source.............Cervix;EndocervixSpecimen Comment: LMP / Prev Treat...[id number] Comment: Other..............Specimen Comment: No. of containers..01 ThinPrep Vial Result Comment: The Pap smear is a screening test designed to aid in the detection of premalignant and malignant conditions of the uterine cervix. It is not a diagnostic procedure and should not be used as the sole means of detecting cervical cancer. Both false-positive and false-negative reports do occur. Performed By: #### L 7400.0353, M100.2200, L7000.1800 ####[facility] [address] [place], [address] PERFORM Comment Normal . [facility] Comment on above: Order Comment: Speci men Comment: [id number] Comment: Source.............Cervix;EndocervixSpecimen Comment: LMP / Prev Treat...[id number] Comment: Other..............Specimen Comment: No. of containers..01 ThinPrep Vial Result Comment: Alison Arellano Equipment Service Lead (ASCP) Performed By: #### L 7400.0353, M100.2200, L7000.1800 ####[facility] [address] [place], [address] Chlamydia/GC ALLYSON aptimaon CHLAMY,NUC ACID Negative Normal Negative [facility] Comment on above: Performed By: #### L 7400.0353, M100.2200, L7000.1800 ####[facility] [address] [place], [address] GC BY NUC ACID Negative Normal Negative [facility] Comment on above: Result Comment: Perf ormed at: =G - [facility] [address] [place] [id number] Bucket Chucker: Edwige Andrews MD, Phone: [phone] Performed By: #### L 7400.0353, M100.2200, L7000.1800 ####[facility] [address] [place], [address] Urine Cultureon 08-30-2024 [facility] Mixed Gram Positive Organisms Matthews Count 1000-10,000 MIXC Mixed contaminants. Submit a new specimen if indicated. Normal [facility] Comment on above: Performed By: #### L 7400.0353, M100.2200, L7000.1800 ####[facility] [address] [place], [address] CBC W/Diff, Automatedon 10-3 Absolute Lymph 2.54 X10 3/uL Normal 0.83-4.51 [facility] Comment on above: Performed By: #### L 100.0100, BTS, L509.4005, L3890.6300, L509.8000, L3890.6100, L3890.6005 ####[facility] [address] [place], [address] Absolute Neut 4.8 X10 3/uL Normal 2.0-7.7 [facility] Comment on above: Performed By: #### L 100.0100, BTS, L509.4005, L3890.6300, L509.8000, L3890.6100, L3890.6005 ####[facility] [address] [place], [address] Basophils/100 WBC (Bld) 0.2 % Normal 0-1 [facility] Comment on above: Performed By: #### L 100.0100, BTS, L509.4005, L3890.6300, L509.8000, L3890.6100, L3890.6005 ####[facility] [address] [place], [address] Eosinophils/100 WBC (Bld) 3.0 % Normal 0-5 [facility] Comment on above: Performed By: #### L 100.0100, BTS, L509.4005, L3890.6300, L509.8000, L3890.6100, L3890.6005 ####[facility] [address] [place], [address] Erythrocyte distribution width (RBC) [Ratio] 13.0 % Normal 11.6-14.6 [facility] Comment on above: Performed By: #### L 100.0100, BTS, L509.4005, L3890.6300, L509.8000, L3890.6100, L3890.6005 ####[facility] [address] [place], [address] Hematocrit (Bld) [Volume fraction] 40.1 % Normal 37-47 [facility] Comment on above: Performed By: #### L 100.0100, BTS, L509.4005, L3890.6300, L509.8000, L3890.6100, L3890.6005 ####[facility] [address] [place], [address] Hemoglobin (Bld) [Mass/Vol] 13.0 g/dL Normal 12.0-15.0 [facility] Comment on above: Performed By: #### L 100.0100, BTS, L509.4005, L3890.6300, L509.8000, L3890.6100, L3890.6005 ####[facility] [address] [place], [address] IG% 0.100 Normal 0.0-0.9 [facility] Comment on above: Result Comment: IG% - Immature Granulocytes (promyelocytes, myelocytes and metamyelocytes) > 1% indicates that a LEFT SHIFT is Present. Performed By: #### L 100.0100, BTS, L509.4005, L3890.6300, L509.8000, L3890.6100, L3890.6005 ####[facility] [address] [place], [address] Lymphocytes/100 WBC (Bld) 30.8 % Normal 19-41 [facility] Comment on above: Performed By: #### L 100.0100, BTS, L509.4005, L3890.6300, L509.8000, L3890.6100, L3890.6005 ####[facility] [address] [place], [address] MCH (RBC) [Entitic mass] 30.7 pg Normal 27.0-32.0 [facility] Comment on above: Performed By: #### L 100.0100, BTS, L509.4005, L3890.6300, L509.8000, L3890.6100, L3890.6005 ####[facility] [address] [place], [address] MCHC (RBC) [Mass/Vol] 32.4 g/dL Normal 32-36 [facility] Comment on above: Performed By: #### L 100.0100, BTS, L509.4005, L3890.6300, L509.8000, L3890.6100, L3890.6005 ####[facility] [address] [place], [address] MCV (RBC) [Entitic vol] 94.8 fL Normal 81-99 [facility] Comment on above: Performed By: #### L 100.0100, BTS, L509.4005, L3890.6300, L509.8000, L3890.6100, L3890.6005 ####[facility] [address] [place], [address] Monocytes/100 WBC (Bld) 7.7 % Normal 0-10 [facility] Comment on above: Performed By: #### L 100.0100, BTS, L509.4005, L3890.6300, L509.8000, L3890.6100, L3890.6005 ####[facility] [address] [place], [address] Neutrophils/100 WBC (Bld) 58.2 % Normal 47-70 [facility] Comment on above: Performed By: #### L 100.0100, BTS, L509.4005, L3890.6300, L509.8000, L3890.6100, L3890.6005 ####[facility] [address] [place], [address] Nucleated RBC (Bld) [#/Vol] 0 10*3/uL Normal 0-5 [facility] Comment on above: Performed By: #### L 100.0100, BTS, L509.4005, L3890.6300, L509.8000, L3890.6100, L3890.6005 ####[facility] [address] [place], [address] Platelet mean volume (Bld) [Entitic vol] 9.7 fL Normal 6.2-12.0 [facility] Comment on above: Performed By: #### L 100.0100, BTS, L509.4005, L3890.6300, L509.8000, L3890.6100, L3890.6005 ####[facility] [address] [place], [address] Platelets (Bld) [#/Vol] 265 10*3/uL Normal 150-450 [facility] Comment on above: Performed By: #### L 100.0100, BTS, L509.4005, L3890.6300, L509.8000, L3890.6100, L3890.6005 ####[facility] [address] [place], [address] RBC (Bld) [#/Vol] 4.23 10*6/uL Normal 4.2-5.4 [facility] Comment on above: Performed By: #### L 100.0100, BTS, L509.4005, L3890.6300, L509.8000, L3890.6100, L3890.6005 ####[facility] [address] [place], [address] RDW SD 44.7 fl High 35.1-43.9 [facility] Comment on above: Performed By: #### L 100.0100, BTS, L509.4005, L3890.6300, L509.8000, L3890.6100, L3890.6005 ####[facility] [address] [place], [place], [address] WBC (Bld) [#/Vol] 8.3 10*3/uL Normal 4.4-11.0 [facility] Comment on above: Performed By: #### L 100.0100, BTS, L509.4005, L3890.6300, L509.8000, L3890.6100, L3890.6005 ####[facility] [address] [place], [place], [id number] HIV - WCHon 08-29-2024 HIV Non-Reactive Normal Nonreactive [facility] Comment on above: Order Comment: Reaso n for Exam: Performed By: #### L 100.0100, BTS, L509.4005, L3890.6300, L509.8000, L3890.6100, L3890.6005 ####[facility] [address] [place], [address] Hepatitis B Surface Antigeno n 08-29-2024 HEP B Surf Ag Non-Reactive Normal Nonreactive [facility] Comment on above: Order Comment: Reaso n for Exam: Performed By: #### L 100.0100, BTS, L509.4005, L3890.6300, L509.8000, L3890.6100, L3890.6005 ####[facility] [address] [place], [place], [address] Hepatitis C Antibodyon 08-29 Hepatitis C AB Non-Reactive Normal Nonreactive [facility] Comment on above: Order Comment: Reaso n for Exam: Result Comment: Non Reactive: < 0.8 Equivocal: >/= 0.8 to < 1.0 Reactive: >/= 1.0 The CDC requires that a reactive/equivocal HCV antibody result be sent out for confirmation. HCV Quant by PCR testing. Performed By: #### L 100.0100, BTS, L509.4005, L3890.6300, L509.8000, L3890.6100, L3890.6005 ####[facility] [address] [place], [place], [id number] L509.8000on 08-29-2024 Syphilis Abs Non-Reactive Normal [facility] Comment on above: Order Comment: Reaso n for Exam: Performed By: #### L 100.0100, BTS, L509.4005, L3890.6300, L509.8000, L3890.6100, L3890.6005 ####[facility] [address] [place], [place], [address] Automation Design Engineer Office Visit Reporton 08-29-2024 Automation Design Engineer Office Visit Report [facility] [address], [address] [place] [address] OFFICE VISIT Date of Service: 08/29/24 MR#: [id number] Acct: [id number] Name: DELPHINE SHAH Armando Rep #: [id number] : 2000 Provider: ULISSES Osborn ams Age/Sex: 24/F Location: [facility] [place] Status: Signed Intake Vital Signs 05/31/24 08:03 08/29/24 09:00 08/29/24 09:07 Height 5 ft 4 in 5 ft 4 in 5 ft 4 in Weight: 119 lb BMI 20.4 BP 116/78 Intake Visit Reasons: New OB, LMP 06/26/24, TAWANNA 04/02/25 Cleaner Touch Up Worker Required: No Is patient in pain?: No Allergies No Known Allergies Allergy (Verified 08/29/24 09:01) Medications ???Medication ???Instructions ???Recorded ???Confirmed ???Type vitamins no.163-iron tab PO 08/18/22 08/29/24 History bis-gly 20 mg-folate no.10 1 mg tablet (PNV Tabs 20-1) esomeprazole magnesium 20 mg 20 mg PO DAILY 09/29/22 08/29/24 History capsule,delayed release Last Menstrual Period: 06/26/24 Zika: Zika virus screening: Negative : No Have you fallen in the past year?: No PFSH PFSH Medical History Normal course Vaginal delivery Family hx of colon cancer Surgical History History of tonsillectomy and adenoidectomy Hx of wisdom tooth extraction Family History Grandfather Colon cancer, Onset Age: 78 Father Hyperlipidemia Social History adopted: No household members: spouse and children housing: house number of children: 2 service: No current occupational status: unemployed current occupation: [employer] current occupational exposures/hazards: No pets and animals: Yes pets and animals: dog(s) history of recent travel: No sexually active: Yes Smoking Status: Never smoker alcohol intake: never substance use type: does not use well-balanced diet: daily or most days caffeine: Yes Type: coffee Number of servings: 1 eating out: rarely or never during the past year weight has: remained stable what type of physical activity do you participate in: walking frequency: 1-2 times per week duration: 30-45 minutes/day melisa/anabaptist: [employer] seatbelt use: always do you feel safe at home: Yes additional social history: : Maksim [place] History 2 Elective abortions Hx Para 1 Spontaneous abortions Hx # Term Pregnancies 1 Ectopic pregnancies Hx # Pregnancies Multiple births # of living children 1 Past Pregnancies Del. Date Name GA/Weeks Outcome Route Bth Weight Gen Labor Lgth Anesthesia Del Locatn Provider FOB 04/07/23 [place] 40 live - full term 7lbs 15oz Male epidural [facility] Sagrario Schaeffer Delivery Date: 04/07/23 Last Updated by: Jeanne Ramirez see problem list for complications, and SM IAL 40 boy [place]. HPI New OB, LMP 06/26/24, TAWANNA 04/02/25 Details: DELPHINE SHAH is a 24 year old who presents for New OB visit. OB Visit TAWANNA Calculator Estimated Delivery Date Method Current WG Current Estimate 04/02/25 LMP (Certain) 9w 1d Other Estimates 04/02/25 Ultrasound #1 9w 1d Estimated Due Date: 04/02/25 Expected Delivery Route/Plan Labor Preferences- CB/BF classes: [] labor support person: [] labor intervention preferences: [] pain management options preferred: [] cut cord/dad catch: [] : [] PP control planned: [] discussed possible routes of delivery and associated risks: [] special requests: [] Specific Issue/Plans Covid status: [] Flu vaccine: [] Tdap vaccine: [] Rhogam: [] LARC form signed: [] Problem list reviewed and updated with the most current plan of care details and appropriate orders placed. Relevant counseling for the gestational age provided. Continue routine care and follow up unless otherwise noted in visit notes/problem list details Initial Weight: 119 lb Date -???-???-???-???-???- ???-???-???-???-???-? ??-???- EGA Weight BP Urine Prot -???-???-???-???-???- ???-???-???-???-???-? ??-???- Glucose FHR FuHt Pres Dilation -???-???-???-???-???- ???-???-???-???-???-? ??-???- Effaced St Visit Note 08/29/24 -???-???-???-???-???- ???-???-???-???-???-? ??-???- 9w 1d 119 lb (+0 oz) 116/78 -???-???-???-???-???- ???-???-???-???-???-? ??-???- 171 -???-???-???-???-???- ???-???-???-???-???-? ??-???- KW- CRL cons with dates. Declines NIPT. Menstrual History Last Menstrual Period: 06/26/24 Reported LMP: definite Normal amount/duration: Yes Frequency in days: 28 On hormonal BC at conception: No hCG+: 07/26/24 Antepartum Record Ge (more content not included)... Normal [facility] Rubella IgGon 08-29-2024 Rubella IgG Reactive Normal Nonreactive [facility] Comment on above: Order Comment: Reaso n for Exam: Result Comment: Anti body Results Interpretation of Immune Status Non Reactive Presumed Non-Immune Equivocal Equivocal Reactive Presumed Immune Performed By: #### L 100.0100, BTS, L509.4005, L3890.6300, L509.8000, L3890.6100, L3890.6005 ####[facility] [address] [place], [place], [id number] Type AND Screenon 08-29-2024 Ab SCREEN GEL Negative Normal [facility] Comment on above: Order Comment: PN Performed By: #### L 100.0100, BTS, L509.4005, L3890.6300, L509.8000, L3890.6100, L3890.6005 ####[facility] [address] [place], [address] PAP I-G w/rfx hrHPV-Aptimaon 06-08-2024 ADEQ Comment Normal . [facility] Comment on above: Order Comment: Speci men Comment: [id number] Comment: Source.............CervixSpecimen Comment: No. of containers..01 ThinPrep Vial Result Comment: Spec imen processed and examined but unsatisfactory for evaluation of epithelial abnormality because of obscuring blood. Specimen processed and examined but unsatisfactory for evaluation of epithelial abnormality because of insufficient cellularity. Performed By: #### L 7400.0353 ####[facility] [address] [place], [place], [id number] COMM . Normal . [facility] Comment on above: Order Comment: Speci men Comment: [id number] Comment: Source.............CervixSpecimen Comment: No. of containers..01 ThinPrep Vial Performed By: #### L 7400.0353 ####[facility] [address] [place], [place], [phone] COMMENT Comment Normal . [facility] Comment on above: Order Comment: Speci men Comment: [id number] Comment: Source.............CervixSpecimen Comment: No. of containers..01 ThinPrep Vial Result Comment: This liquid based ThinPrep(R) pap test was screened with the use of an image guided system. Performed By: #### L 7400.0353 ####[facility] [address] [place], [place], [id number] DIAG Comment Normal . [facility] Comment on above: Order Comment: Speci men Comment: [id number] Comment: Source.............CervixSpecimen Comment: No. of containers..01 ThinPrep Vial Result Comment: UNSA TISFACTORY FOR EVALUATION. SPECIMEN REPROCESSED FOR INTERPRETATION USING GLACIAL ACETIC ACID (GAA). Performed By: #### L 7400.0353 ####[facility] [address] [place], [place], [id number] HPV RFLX Comment Normal . [facility] Comment on above: Order Comment: Speci men Comment: [id number] Comment: Source.............CervixSpecimen Comment: No. of containers..01 ThinPrep Vial Result Comment: The HPV DNA reflex criteria were not met with this specimen result therefore, no HPV testing was performed. Performed at: [address] [id number] Bucket Chucker: Edwige Andrews MD, Phone: [phone] Performed By: #### L 7400.0353 ####[facility] [address] [place], [place], [id number] PAPSMR Comment Normal . [facility] Comment on above: Order Comment: Speci men Comment: [id number] Comment: Source.............CervixSpecimen Comment: No. of containers..01 ThinPrep Vial Result Comment: The Pap smear is a screening test designed to aid in the detection of premalignant and malignant conditions of the uterine cervix. It is not a diagnostic procedure and should not be used as the sole means of detecting cervical cancer. Both false-positive and false-negative reports do occur. Performed By: #### L 7400.0353 ####[facility] [address] [place], [place], [id number] PERFORM Comment Normal . [facility] Comment on above: Order Comment: Speci men Comment: [id number] Comment: Source.............CervixSpecimen Comment: No. of containers..01 ThinPrep Vial Result Comment: Mily Alas, Equipment Service Lead (ASCP) Performed By: #### L 7400.0353 ####[facility] [address] [place], [place], [address] QC REV Comment Normal . [facility] Comment on above: Order Comment: Speci men Comment: [id number] Comment: Source.............CervixSpecimen Comment: No. of containers..01 ThinPrep Vial Result Comment: Jignesh Harmon, Supervisory Equipment Service Lead (ASCP) Performed By: #### L 7400.0353 ####[facility] [address] [place], [address] RECOMM Comment Normal . [facility] Comment on above: Order Comment: Speci men Comment: [id number] Comment: Source.............CervixSpecimen Comment: No. of containers..01 ThinPrep Vial Result Comment: Sugg est follow up as clinically appropriate. Performed By: #### L 7400.0353 ####[facility] [address] [place], [address] Automation Design Engineer Office Visit Reporton 05-31-2024 Automation Design Engineer Office Visit Report [facility] 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 Is patient in pain?: No Allergies No Known Allergies Allergy (Verified 05/31/24 08:07) Medications ???Medication ???Instructions ???Recorded ???Confirmed ???Type vitamins no.163-iron tab PO 08/18/22 05/31/24 History bis-gly 20 mg-folate no.10 1 mg tablet (PNV Tabs 20-1) esomeprazole magnesium 20 mg 20 mg PO DAILY 09/29/22 05/31/24 History capsule,delayed release Is last menstrual period known: Yes Post menopausal: No Patient : No : No PFSH Medical History Vaginal delivery Family hx of colon cancer Surgical History History of tonsillectomy and adenoidectomy Hx of wisdom tooth extraction Family History Grandfather Colon cancer, Onset Age: 78 Social History adopted: No household members: spouse housing: house current occupational status: employed 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 pets and animals: No history of recent travel: No sexually active: Yes Smoking Status: Never smoker alcohol intake: never substance use type: does not use well-balanced diet: daily or most days caffeine: Yes Type: coffee Number of servings: 1 eating out: rarely or never during the past year weight has: remained stable what type of physical activity do you participate in: walking frequency: 3-4 times per week duration: 30-45 minutes/day melisa/anabaptist: [employer] seatbelt use: always do you feel safe at home: Yes additional social history: - [place] [place] History 1 Elective abortions Hx Para 0 Spontaneous abortions Hx # Term Pregnancies 1 Ectopic pregnancies Hx # Pregnancies Multiple births # of living children 1 Past Pregnancies Del. Date Name GA/Weeks Outcome Route Bth Weight Gen Labor Lgth Anesthesia Del Locatn Provider FOB 04/07/23 [place] 40 live - full term Male epidural [facility] yoon Dysonregine [place]illoas Delivery Date: 04/07/23 Last Updated by: Jeanne Ramirez see problem list for complications, and SM IAL 40 boy [place]. HPI Encounter for routine gynecological examination Details: DELPHINE SHAH is a 24 year old who presents for annual exam. no concerns today. no change in medical, surgical or family hx. is interested in conceiving again within the next year. regular menses, no longer . Last PAP: never obtained Other preventative health care screenings: pcp Female Reproductive History Cycle Length: 21-35 Bleeding Duration: 5 Questions: metorrhagia: No, sexually active: Yes, dyspareunia: No and PCB: No Menopausal Symptoms: No hot flashes, No night sweats, No difficulty concentrating and No change in libido ROS Const Constitutional: Reports as per HPI; Denies fatigue, increased appetite, poor appetite, night sweats, weight gain or weight loss Cardio Card: Denies chest pain Resp Resp: Denies cough or dyspnea GI GI: Reports as per HPI; Denies abdominal pain, bloating, constipation, nausea or vomiting : Reports as per HPI and other; Denies difficulty voiding, hematuria, hot flashes, nipple discharge, pelvic pain, urinary frequency, urinary incontinence, urinary hesitancy, urinary urgency, vaginal discharge, vaginal dryness, vaginal odor or vaginal pruritus Skin Skin/Breast: Denies changing lesions, breast mass, breast pain, breast skin changes or nipple discharge Psych Psych: Denies anxiety, change in libido, depression or difficulty concentrating Exam Const General: cooperative, healthy appearing, comfortable and no acute distress Neck Neck: normal visual inspection, full ROM, no lymphadenopathy and supple Thyroid: thyroid normal Chest Chest palpation inspection: normal inspection of the chest Breast inspection: normal inspection of the breasts Breast palpation: normal palpation of the breasts Resp Effort Inspection: normal respiratory effort, able to speak in complete sentences and symmetric chest movement Cardio Rhythm: regular rhythm GI Inspection: normal to inspection Palpation: soft and no hepatosplenomegaly External (more content not included)... Normal [facility] No Panel InformationOrdered By: Dr. Saenz on 03-10-2023 Group B Streptococcus Culture Group B Beta Streptococcus is not isolated. [facility] Laboratory - Chemistry and C hemistry - challengeon 02-21-2023 Glucose Ql (U) Negative [facility] Laboratory - Urinalysison Protein Ql (U) Negative [facility] Laboratory - Chemistry and C hemistry - challengeon 02-07-2023 Glucose Ql (U) Negative [facility] Laboratory - Urinalysison Protein Ql (U) Negative [facility] Absolute lymphocyte countOrd ered By: Jayshree Garza on 01-09-2023 Lymphocytes Auto (Unsp spec) [#/Vol] 1.83 10*3/uL 0.83-4.51 [facility] Basophil percentageOrdered B y: Jayshree Garza on 01-09-2023 Basophils/100 WBC (Bld) 0.2 % 0-1 [facility] Eosinophils/100 WBC (Bld) 3.1 % 0-5 [facility] Neutrophils (Bld) [#/Vol] 7.1 10*3/uL 2.0-7.7 [facility] Neutrophils/100 WBC (Bld) 72.0 % 47-70 [facility] WBC (Bld) [#/Vol] 9.8 10*3/uL 4.4-11.0 [facility] Blood erythrocytes count (nu mber/volume)Ordered By: Jayshree Garza on 01-09-2023 RBC (Bld) [#/Vol] 3.66 10*6/uL 4.2-5.4 [facility] Blood hemoglobin measurement (mass/volume)Ordered By: Jayshree Garza on 01-09-2023 Hemoglobin (Bld) [Mass/Vol] 12.1 g/dL 12.0-15.0 [facility] Blood lymphocytes/100 leukoc ytesOrdered By: Jayshree Garza on 01-09-2023 Lymphocytes/100 WBC (Bld) 18.6 % 19-41 [facility] Blood monocytes/100 leukocyt esOrdered By: Jayshree Garza on 01-09-2023 Monocytes/100 WBC (Bld) 5.5 % 0-10 [facility] Blood platelet mean volumeOr dered By: Jayshree Garza on 01-09-2023 Platelet mean volume (Bld) [Entitic vol] 10.2 fL 6.2-12.0 [facility] Determination of erythrocyte mean corpuscular volume (MCV)Ordered By: Jayshree Garza on 01-09-2023 MCV (RBC) [Entitic vol] 100.5 fL 81-99 [facility] Gestational diabetes screen 1-hour screen with 50g oral glucose loadOrdered By: Jayshree Garza on 01-09-2023 Glucose 1 Hr post 50 g glucose PO [Mass/Vol] 91 mg/dL 70-140 [facility] HIV 1 and HIV-2 antibody ass ay with HIV-1 p24 antigen detectionOrdered By: Jayshree Garza on 01-09-2023 HIV 1+2 Ab+HIV1 p24 Ag IA Ql Non-Reactive Nonreactive [facility] Hematocrit Auto (Bld) [Volum e fraction]Ordered By: Jayshree Garza on 01-09-2023 Hematocrit (Bld) [Volume fraction] 36.8 % 37-47 [facility] Laboratory - Chemistry and C hemistry - challengeon 01-09-2023 Glucose Ql (U) Negative [facility] Laboratory - Hematology and Cell countsOrdered By: Jayshree Garza on 01-09-2023 Erythrocyte distribution width (RBC) [Entitic vol] 49.2 fL 35.1-43.9 [facility] Erythrocyte distribution width (RBC) [Ratio] 13.3 % 11.6-14.6 [facility] Immature granulocytes/100 WBC (Bld) 0.600 % 0.0-0.9 [facility] Comment on above: IG% - Immature Granu locytes (promyelocytes, myelocytes and metamyelocytes) > 1% indicates that a LEFT SHIFT is Present. MCH (RBC) [Entitic mass] 33.1 pg 27.0-32.0 [facility] Nucleated RBC/100 WBC (Bld) [Ratio] 0 % 0-5 [facility] Laboratory - Urinalysison Protein Ql (U) Negative [facility] MCHC Auto (RBC) [Mass/Vol]Or dered By: Jayshree Garza on 01-09-2023 MCHC (RBC) [Mass/Vol] 32.9 g/dL 32-36 [facility] Platelets bldOrdered By: Lamont Garza on 01-09-2023 Platelets (Bld) [#/Vol] 230 10*3/uL 150-450 [facility] Serum Treponema species anti body detectionOrdered By: Jayshree Garza on 01-09-2023 Treponema sp Ab Ql (S) Non-Reactive [facility] Laboratory - Chemistry and C hemistry - challengeon 12-20-2022 Glucose Ql (U) Negative [facility] Laboratory - Urinalysison Protein Ql (U) Negative [facility] Laboratory - Chemistry and C hemistry - challengeon 11-24-2022 Glucose Ql (U) Negative [facility] Laboratory - Urinalysison Protein Ql (U) Negative [facility] Laboratory - Chemistry and C hemistry - challengeon 10-28-2022 Glucose Ql (U) Negative [facility] Laboratory - Urinalysison Protein Ql (U) Negative [facility] Absolute lymphocyte countOrd ered By: Dr. Pozo on 09-29-2022 Lymphocytes Auto (Unsp spec) [#/Vol] 3.16 10*3/uL 0.83-4.51 [facility] Basophil percentageOrdered B y: Dr. Pozo on 09-29-2022 Basophils/100 WBC (Bld) 0.3 % 0-1 [facility] Eosinophils/100 WBC (Bld) 4.5 % 0-5 [facility] Neutrophils (Bld) [#/Vol] 7.4 10*3/uL 2.0-7.7 [facility] Neutrophils/100 WBC (Bld) 61.8 % 47-70 [facility] WBC (Bld) [#/Vol] 11.9 10*3/uL 4.4-11.0 [facility] Blood erythrocytes count (nu mber/volume)Ordered By: Dr. Pozo on 09-29-2022 RBC (Bld) [#/Vol] 4.04 10*6/uL 4.2-5.4 [facility] Blood hemoglobin measurement (mass/volume)Ordered By: Dr. Pozo on 09-29-2022 Hemoglobin (Bld) [Mass/Vol] 12.8 g/dL 12.0-15.0 [facility] Blood lymphocytes/100 leukoc ytesOrdered By: Dr. Pozo on 09-29-2022 Lymphocytes/100 WBC (Bld) 26.5 % 19-41 [facility] Blood monocytes/100 leukocyt esOrdered By: Dr. Pozo on 09-29-2022 Monocytes/100 WBC (Bld) 6.6 % 0-10 [facility] Blood platelet mean volumeOr dered By: Dr. Pozo on 09-29-2022 Platelet mean volume (Bld) [Entitic vol] 9.8 fL 6.2-12.0 [facility] Determination of erythrocyte mean corpuscular volume (MCV)Ordered By: Dr. Pozo on 09-29-2022 MCV (RBC) [Entitic vol] 94.3 fL 81-99 [facility] HIV 1 and HIV-2 antibody ass ay with HIV-1 p24 antigen detectionOrdered By: Dr. Pozo on 09-29-2022 HIV 1+2 Ab+HIV1 p24 Ag IA Ql Non-Reactive Nonreactive [facility] Hematocrit Auto (Bld) [Volum e fraction]Ordered By: Dr. Pozo on 09-29-2022 Hematocrit (Bld) [Volume fraction] 38.1 % 37-47 [facility] Laboratory - Chemistry and C hemistry - challengeon 09-29-2022 Glucose Ql (U) Negative [facility] Laboratory - Hematology and Cell countsOrdered By: Dr. Pozo on 09-29-2022 Erythrocyte distribution width (RBC) [Entitic vol] 43.3 fL 35.1-43.9 [facility] Erythrocyte distribution width (RBC) [Ratio] 12.7 % 11.6-14.6 [facility] Immature granulocytes/100 WBC (Bld) 0.300 % 0.0-0.9 [facility] Comment on above: IG% - Immature Granu locytes (promyelocytes, myelocytes and metamyelocytes) > 1% indicates that a LEFT SHIFT is Present. MCH (RBC) [Entitic mass] 31.7 pg 27.0-32.0 [facility] Nucleated RBC/100 WBC (Bld) [Ratio] 0 % 0-5 [facility] Laboratory - Urinalysison Protein Ql (U) Negative [facility] MCHC Auto (RBC) [Mass/Vol]Or dered By: Dr. Pozo on 09-29-2022 MCHC (RBC) [Mass/Vol] 33.6 g/dL 32-36 [facility] No Panel InformationOrdered By: Dr. Pozo on 09-29-2022 Hepatitis B Surface Antigen Non-Reactive Nonreactive [facility] Hepatitis C Antibody Non-Reactive Nonreactive [facility] Comment on above: Non Reactive: < 0.8 Equivocal: >/= 0.8 to < 1.0 Reactive: >/= 1.0The CDC recommends that a reactive/equivocal HCV antibody result be followed up by the HCV Nucleic Acid Amplificationtest (667461) Rubella IgG Antibody Reactive Nonreactive [facility] Comment on above: Antibody Results Int erpretation of Immune Status Non Reactive Presumed Non-Immune Equivocal Equivocal Reactive Presumed Immune Platelets bldOrdered By: Dr. Pozo on 09-29-2022 Platelets (Bld) [#/Vol] 233 10*3/uL 150-450 [facility] Serum Treponema species anti body detectionOrdered By: Dr. Pozo on 09-29-2022 Treponema sp Ab Ql (S) Non-Reactive [facility] Culture, urine Bacteria identified Cx Nom (U) Culture exhibits no growth. [facility] Work Phone: Vital Signs Date Time Vital Sign Value Performing Clinician Faci lity 03-26-2025 09:34-0400 Body height 162.[address] Hemanth Lott MD Work Phone: [facility] 03-26-2025 09:29-0400 Body mass index (BMI) [Ratio] 27 kg/m2 Dr. Hemanth Lott MD Work Phone: [facility] 03-26-2025 09:29-0400 Body weight 71.[address] Hemanth Lott MD Work Phone: [facility] 03-26-2025 09:29-0400 Diastolic blood pressure 72 mm[Hg] Dr. Hemanth Lott MD Work Phone: [facility] 03-26-2025 09:29-0400 Systolic blood pressure 105 mm[Hg] Dr. Hemanth Lott MD Work Phone: [facility] 03-20-2025 14:57-0400 Body mass index (BMI) [Ratio] 26.8 kg/m2 Dr. Hemanth Lott MD Work Phone: [facility] 03-20-2025 14:57-0400 Body weight 70.[address] Hemanth Lott MD Work Phone: [facility] 03-20-2025 14:57-0400 Diastolic blood pressure 78 mm[Hg] Dr. Hemanth Lott MD Work Phone: [facility] 03-20-2025 14:57-0400 Systolic blood pressure 113 mm[Hg] Dr. Hemanth Lott MD Work Phone: [facility] 03-12-2025 10:00-0400 Body height 162.56 cm Jayshree SANDOVALM Work Phone: [facility] 03-12-2025 09:56-0400 Body mass index (BMI) [Ratio] 26.2 kg/m2 Jayshree Garza CNM Work Phone: [facility] 03-12-2025 09:56-0400 Body weight 69.17 kg Jayshree Garza CNM Work Phone: [facility] 03-12-2025 09:56-0400 Diastolic blood pressure 72 mm[Hg] Jayshree Garza CNM Work Phone: [facility] 03-12-2025 09:56-0400 Systolic blood pressure 104 mm[Hg] Jayshree SANDOVALM Work Phone: [facility] 02-24-2025 09:34-0400 Body mass index (BMI) [Ratio] 25.9 kg/m2 Jayshree Garza CNM Work Phone: [facility] 02-24-2025 09:34-0400 Body weight 68.66 kg Jayshree SANDOVALM Work Phone: [facility] 02-24-2025 09:34-0400 Diastolic blood pressure 75 mm[Hg] Jayshree Garza CNM Work Phone: [facility] 02-24-2025 09:34-0400 Systolic blood pressure 111 mm[Hg] Jayshree Garza CNM Work Phone: [facility] 02-12-2025 09:36-0400 Body mass index (BMI) [Ratio] 26.1 kg/m2 Jayshree SANDOVALM Work Phone: [facility] 02-12-2025 09:36-0400 Body weight 69 kg Jayshree SANDOVALM Work Phone: [facility] 02-12-2025 09:36-0400 Diastolic blood pressure 68 mm[Hg] Jayshree SANDOVALM Work Phone: [facility] 02-12-2025 09:36-0400 Systolic blood pressure 102 mm[Hg] Jayshree Garza CNM Work Phone: [facility] 01-29-2025 08:27-0400 Body mass index (BMI) [Ratio] 25.7 kg/m2 Jayshree Garza CNM Work Phone: [facility] 01-29-2025 08:27-0400 Body weight 68.15 kg Jayshree Garza CNM Work Phone: [facility] 01-29-2025 08:27-0400 Diastolic blood pressure 73 mm[Hg] Jayshree Garza CNM Work Phone: [facility] 01-29-2025 08:27-0400 Systolic blood pressure 107 mm[Hg] Jayshree Garza CNM Work Phone: [facility] 01-13-2025 08:58-0400 Body mass index (BMI) [Ratio] 25.2 kg/m2 Jayshree Garza CNM Work Phone: [facility] 01-13-2025 08:58-0400 Body weight 66.79 kg Jayshree Garza CNM Work Phone: [facility] 01-13-2025 08:58-0400 Diastolic blood pressure 77 mm[Hg] Jayshree Garza CNM Work Phone: [facility] 01-13-2025 08:58-0400 Systolic blood pressure 114 mm[Hg] Jayshree SANDOVALM Work Phone: [facility] 12-27-2024 09:50-0500 Body height 162.[address] Hemanth Lott MD Work Phone: [facility] 12-27-2024 09:48-0500 Body mass index (BMI) [Ratio] 24.7 kg/m2 Dr. Hemanth Lott MD Work Phone: [facility] 12-27-2024 09:48-0500 Body weight 65.[address] Hemanth Lott MD Work Phone: [facility] 12-27-2024 09:48-0500 Diastolic blood pressure 76 mm[Hg] Dr. Hemanth Lott MD Work Phone: [phone] [place] [address] 12-27-2024 09:48-0500 Systolic blood pressure 109 mm[Hg] Dr. Hemanth Lott MD Work Phone: [phone])181-700469 [address] 11-28-2024 09:08-0500 Body mass index (BMI) [Ratio] 23.9 kg/m2 Dr. Hemanth Lott MD Work Phone: [phone])[phone] [place] [address] 11-28-2024 09:08-0500 Body weight 63.[address] Hemanth Lott MD Work Phone: [phone] [place] [address] 11-28-2024 09:08-0500 Diastolic blood pressure 71 mm[Hg] Dr. Hemanth Lott MD Work Phone: [phone] [address] [place] [address] 11-28-2024 09:08-0500 Systolic blood pressure 106 mm[Hg] Dr. Hemanth Lott MD Work Phone: [phone] [place] [address] 11-06-2024 09:59-0500 Body mass index (BMI) [Ratio] 23.2 kg/m2 Dr. Hemanth Lott MD Work Phone: 4([phone] [place] [address] 11-06-2024 09:59-0500 Body weight 61.[address] Hemanth Lott MD Work Phone: 8(770)[phone] [place] [address] 11-06-2024 09:59-0500 Diastolic blood pressure 73 mm[Hg] Dr. Hemanth Lott MD Work Phone: [phone](390)[phone] [place] [address] 11-06-2024 09:59-0500 Systolic blood pressure 110 mm[Hg] Dr. Hemanth Lott MD Work Phone: [phone] [place] [address] 10-04-2024 11:57-0500 Body mass index (BMI) [Ratio] 21.3 kg/m2 Dr. Hemanth Lott MD Work Phone: [phone] [place] [address] 10-04-2024 11:57-0500 Body weight 56.[address] Hemanth Lott MD Work Phone: [facility] 10-04-2024 11:57-0500 Diastolic blood pressure 78 mm[Hg] Dr. Hemanth Lott MD Work Phone: [facility] 10-04-2024 11:57-0500 Systolic blood pressure 116 mm[Hg] Dr. Hemanth Lott MD Work Phone: [facility] 03-07-2023 13:10-0400 Body height 162.[address] Hemanth Lott Work Phone: [facility] 03-07-2023 13:09-0400 Body mass index (BMI) [Ratio] 26.9 kg/m2 Dr. Hemanth Lott Work Phone: [facility] 03-07-2023 13:09-0400 Body weight 71.[address] Hemanth Lott Work Phone: [facility] 03-07-2023 13:09-0400 Diastolic blood pressure 73 mm[Hg] Dr. Hemanth Lott Work Phone: [facility] 03-07-2023 13:09-0400 Systolic blood pressure 117 mm[Hg] Dr. Hemanth Lott Work Phone: [facility] 02-21-2023 08:46-0400 Body mass index (BMI) [Ratio] 25.7 kg/m2 Dr. Hemanth Lott Work Phone: [facility] 02-21-2023 08:46-0400 Body weight 68.[address] Hemanth Lott Work Phone: [facility] 02-21-2023 08:46-0400 Diastolic blood pressure 74 mm[Hg] Dr. Hemanth Lott Work Phone: [facility] 02-21-2023 08:46-0400 Heart rate 106 /min Dr. Hemanth Lott Work Phone: [facility] 02-21-2023 08:46-0400 Systolic blood pressure 115 mm[Hg] Dr. Hemanth Lott Work Phone: [facility] 02-07-2023 08:58-0400 Body mass index (BMI) [Ratio] 25.4 kg/m2 Dr. Hemanth Lott Work Phone: [facility] 02-07-2023 08:58-0400 Body weight 67.[address] Hemanth Lott Work Phone: [facility] 02-07-2023 08:58-0400 Diastolic blood pressure 83 mm[Hg] Dr. Hemanth Lott Work Phone: [facility] 02-07-2023 08:58-0400 Systolic blood pressure 107 mm[Hg] Dr. Hemanth Lott Work Phone: [facility] 01-24-2023 09:35-0400 Body mass index (BMI) [Ratio] 25.7 kg/m2 Dr. Hemanth Lott Work Phone: [facility] 01-24-2023 09:35-0400 Diastolic blood pressure 81 mm[Hg] Dr. Hemanth Lott Work Phone: [facility] 01-24-2023 09:35-0400 Systolic blood pressure 122 mm[Hg] Dr. Hemanth Lott Work Phone: [facility] 01-24-2023 09:08-0400 Body weight 68.[address] Hemanth Lott Work Phone: [facility] 01-24-2023 09:08-0400 Heart rate 74 /min Dr. Hemanth Lott Work Phone: [facility] 01-09-2023 10:59-0400 Body height 162.[address] Hemanth Lott Work Phone: [facility] 01-09-2023 10:51-0400 Body mass index (BMI) [Ratio] 24.4 kg/m2 Dr. Hemanth Lott Work Phone: [facility] 01-09-2023 10:51-0400 Body weight 64.[address] Hemanth Lott Work Phone: [facility] 01-09-2023 10:51-0400 Diastolic blood pressure 68 mm[Hg] Dr. Hemanth Lott Work Phone: [facility] 01-09-2023 10:51-0400 Systolic blood pressure 102 mm[Hg] Dr. Hemanth Lott Work Phone: [facility] 12-20-2022 13:23-0500 Body mass index (BMI) [Ratio] 24 kg/m2 Dr. Hemanth Lott Work Phone: [facility] 12-20-2022 13:23-0500 Body weight 63.[address] Hemanth Lott Work Phone: [facility] 12-20-2022 13:23-0500 Diastolic blood pressure 79 mm[Hg] Dr. Hemanth Lott Work Phone: [facility] 12-20-2022 13:23-0500 Systolic blood pressure 119 mm[Hg] Dr. Hemanth Lott Work Phone: [facility] 11-24-2022 13:23-0500 Body mass index (BMI) [Ratio] 23.6 kg/m2 Dr. Hemanth Lott Work Phone: [facility] 11-24-2022 13:23-0500 Body weight 62.[address] Hemanth Lott Work Phone: [facility] 11-24-2022 13:23-0500 Diastolic blood pressure 77 mm[Hg] Dr. Hemanth Lott Work Phone: [facility] 11-24-2022 13:23-0500 Systolic blood pressure 109 mm[Hg] Dr. Hemanth Lott Work Phone: [facility] 10-28-2022 13:24-0500 Body height 162.[address] Hemanth Lott Work Phone: [facility] Work Phone: 10-28-2022 13:23-0500 Body mass index (BMI) [Ratio] 22 kg/m2 Dr. Hemanth Lott Work Phone: [facility] 10-28-2022 13:23-0500 Body weight 58.[address] Hemanth Lott Work Phone: [facility] 10-28-2022 13:23-0500 Diastolic blood pressure 72 mm[Hg] Dr. Hemanth Lott Work Phone: [facility] 10-28-2022 13:23-0500 Systolic blood pressure 109 mm[Hg] Dr. Hemanth Lott Work Phone: [facility] 09-29-2022 13:02-0500 Body height 162.[address] Hemanth Lott Work Phone: [facility] Work Phone: 09-29-2022 13:02-0500 Body mass index (BMI) [Ratio] 21.7 kg/m2 Dr. Hemanth Lott Work Phone: [facility] 09-29-2022 13:02-0500 Body weight 57.[address] Hemanth Lott Work Phone: [facility] 09-29-2022 13:02-0500 Diastolic blood pressure 74 mm[Hg] Dr. Hemanth Lott Work Phone: [facility] 09-29-2022 13:02-0500 Systolic blood pressure 111 mm[Hg] Dr. Hemanth Lott Work Phone: [facility] 08-30-2022 14:09-0400 Body height 162.[address] Hemanth Lott Work Phone: [facility] Work Phone: 08-30-2022 14:08-0400 Body mass index (BMI) [Ratio] 21.4 kg/m2 Dr. Hemanth Lott Work Phone: [facility] Work Phone: 08-30-2022 14:08-0400 Body weight 56.[address] Hemanth Lott Work Phone: [facility] Work Phone: 08-30-2022 14:08-0400 Diastolic blood pressure 77 mm[Hg] Dr. Hemanth Lott Work Phone: [facility] Work Phone: 08-30-2022 14:08-0400 Systolic blood pressure 121 mm[Hg] Dr. Hemanth Lott Work Phone: [facility] Work Phone: Encounters Encounter Date Encounter Type Care Provider Facility Start: 04-02-2025 End: 04-02-2025 ambulatory Hemanth Lott Facility:[facility] Start: 03-26-2025 End: 03-26-2025 Patient encounter procedure Jayshree Garza CNM -[facility] @ Start: 03-26-2025 End: 03-26-[address] Hemanth Lott MD Work Phone: [facility] Work Phone: Start: 03-20-2025 End: 03-20-[address] Sagraroi Saenz MD -[facility] Work Phone: Start: 03-20-2025 End: 03-20-2025 ambulatory Hemanth Lott Facility:[facility] Start: 03-12-2025 End: 03-12-[address] Hemanth Lott MD Work Phone: [facility] Work Phone: Start: 03-12-2025 End: 03-12-2025 Patient encounter procedure Jayshree Garza CNM -Laboratory Specimen Work Phone: Start: 03-12-2025 End: 03-12-2025 Patient encounter procedure Jayshree Garza CNM -[facility] @ Start: 03-12-2025 End: 03-12-2025 ambulatory Jayshree Garza CNM Work Phone: [facility] Work Phone: Start: 03-12-2025 End: 03-12-2025 ambulatory Hemanth Lott Facility:[facility] Start: 02-24-2025 End: 02-24-2025 Patient encounter procedure Jayshree Garza [facility] @ Start: 02-24-2025 End: 02-24-2025 ambulatory Hemanth Lott Facility:[facility] Start: 02-12-2025 End: 02-12-2025 Patient encounter procedure Jayshree Garaz [facility] @ Start: 02-12-2025 End: 02-12-2025 ambulatory Hemanth Lott Facility:[facility] Start: 01-29-2025 End: 01-29-2025 Patient encounter procedure Jayshree Garza [facility] @ Start: 01-29-2025 End: 01-29-2025 ambulatory Hemanth Lott Facility:[facility] Start: 01-13-2025 End: 01-13-[address] Meenu Hernandez DO [facility] Work Phone: Start: 01-13-2025 End: 01-13-2025 ambulatory Hemanth Lott Facility:[facility] Start: 12-31-2024 End: 12-31-[address] Hemanth Lott MD Work Phone: [facility] Work Phone: Start: 12-31-2024 End: 12-31-2024 Patient encounter procedure Rebekah Adams [facility] -Laboratory Work Phone: Start: 12-31-2024 End: 12-31-2024 ambulatory Rebekah Adams Facility:[facility] Start: 12-27-2024 End: 12-27-2024 [facility] Start: 12-27-2024 End: 12-27-[address] Hemanth Lott MD Work Phone: [facility] Work Phone: Start: 12-27-2024 End: 12-27-2024 ambulatory Sagrario Saenz Facility:[facility] Start: 11-28-2024 End: 11-28-[address] Sagrario Saenz MD -[facility] Work Phone: Start: 11-28-2024 End: 11-28-2024 ambulatory Hemanth Lott Facility:[facility] Start: 11-13-2024 End: 11-13-2024 Patient encounter procedure Jayshree Garza CNM -[facility] Work Phone: Start: 11-13-2024 End: 11-13-2024 ambulatory Hemanth Lott Facility:[facility] Start: 11-06-2024 End: 11-06-2024 Patient encounter procedure Jayshree Garza CNM -[facility] @ Start: 11-06-2024 End: 11-06-2024 ambulatory Jayshree Garza Facility:[facility] Start: 10-04-2024 End: 10-04-2024 Patient encounter procedure Jayshree SANDOVAL -[facility] Work Phone: Start: 10-04-2024 End: 10-04-2024 ambulatory Hemanth Lott Facility:[facility] Start: 08-29-2024 End: 08-29-2024 ambulatory Hemanth Lott Facility:[facility] Start: 08-29-2024 End: 08-29-2024 ambulatory Jayshree Garza Facility:[facility] Start: 08-23-2024 ambulatory Hemanth Lott Facilit y:[facility] Start: 05-31-2024 End: 05-31-2024 ambulatory Rebekah Adams Facility:[facility] Start: 05-31-2024 End: 05-31-2024 ambulatory Rebekah [place] Facility:[facility] Start: 03-07-2023 End: 03-07-[address] Hemanth Lott Work Phone: [facility] Work Phone: Start: 03-07-2023 End: 03-07-[address] Hemanth Lott Work Phone: [facility]-Laboratory, Specimen Start: 03-07-2023 End: 03-07-[address] Hemanth Lott Work Phone: [facility] Start: 02-21-2023 End: 02-21-[address] Hemanth Lott Work Phone: [facility] @ Start: 02-07-2023 End: 02-07-[address] Hemanth Lott Work Phone: [facility] Start: 01-24-2023 End: 01-24-[address] Hemanth Lott Work Phone: [facility] @ Start: 01-09-2023 End: 01-09-[address] Hemanth Lott Work Phone: [facility] Work Phone: Start: 01-09-2023 End: 01-09-[address] Hemanth Lott Work Phone: [facility] Start: 12-20-2022 End: 12-20-[address] Hemanth Lott Work Phone: [facility] Start: 11-24-2022 End: 11-24-[address] Hemanth Lott Work Phone: [facility] Start: 11-09-2022 End: 11-09-[address] Hemanth Lott Work Phone: [facility] Work Phone: Start: 11-09-2022 End: 11-09-[address] Hemanth Lott Work Phone: [facility] Start: 10-28-2022 End: 10-28-[address] Hemanth oLtt Work Phone: [facility] Start: 09-29-2022 End: 09-29-[address] Hemanth Lott Work Phone: [facility] Work Phone: Start: 09-29-2022 End: 09-29-[address] Hemanth Lott Work Phone: [facility] Start: 08-30-2022 End: 08-30-[address] Hemanth Lott Work Phone: [facility] Work Phone: Start: 08-30-2022 End: 08-30-[address] Hemanth Lott Work Phone: [facility]-Laboratory, Specimen Start: 08-30-2022 End: 08-30-[address] Hemanth Lott Work Phone: [facility] Procedures Date Procedure Procedure Detail Performing Clinician Start: 03-12-2025 Beta-hemolytic Strep tococcus culture Dr. Hemanth Lott MD Work Phone: Start: 12-27-2024 Gram stain microscopy D abby Lott MD Work Phone: Start: 12-27-2024 End: 12-27-[address] Hemanth alvares MD Work Phone: Start: 11-13-[address] Hemanth Lott MD Work Phone: Start: 11-09-[address] ic ultrasonography Dr. Hemanth Lott Work Phone: Start: 11-09-[address] Hemanth Lott Work Phone: Group B Streptococcu s Culture Dr. Hemanth Lott Work Phone: Urine culture Dr. Hemanth dempsey Work Phone: Plan of Treatment Date Care Activity Detail Author Start: 12-31-2024 [facility] CBC W Auto Different ial panel - Blood [facility] Work Phone: anatomy study [facility] Work Phone: Rubella IgG measurement [facility] Work Phone: Streptococcus agalac tiae [Presence] in Unspecified specimen by Organism specific culture [facility] Payers Date Payer Category Payer Self-pay [id number] 2023 Unknown [id number] Self-pay SELF PAY ER DEPOSIT [id number] Unknown [employer] [facility] [id number] Unknown [facility] [employer] [id number] Unknown [id number] 2.16.8 [id number] Unknown [id number] 2.16.8 [id number] Unknown [id number] 2.16.8 [id number] Unknown [id number] 2.16.8 40.1.126662.3.579.2.462 Unknown [id number] 2.16.8 40.1.011450.3.579.2.462 Unknown [id number] 2.16.8 40.1.513939.3.579.2.462 Unknown [id number] 2.16.8 40.1.694581.3.579.2.462 Unknown [id number] 2.16.8 40.1.727878.3.579.2.462 Unknown [id number] 2.16.8 40.1.308126.3.579.2.462 Unknown [id number] 2.16.8 40.1.457893.3.579.2.462 Unknown [id number] 2.16.8 40.1.944489.3.579.2.462 Unknown [id number] 2.16.8 40.1.382243.3.579.2.462 Unknown [id number] 2.16.8 40.1.312868.3.579.2.462 Unknown [id number] 2.16.8 40.1.521092.3.579.2.462 Unknown [id number] 2.16.8 40.1.635614.3.579.2.462 Unknown [id number] 2.16.8 40.1.410775.3.579.2.462 Unknown [id number] 2.16.8 40.1.938489.3.579.2.462 Unknown [id number] 2.16.8 40.1.240800.3.579.2.462 Unknown [id number] 2.16.8 40.1.060322.3.579.2.462 Unknown [id number] 2.16.8 40.1.920513.3.579.2.462 Unknown [id number] 2.16.8 40.1.757806.3.579.2.462 Social History Date Type Detail Facility Start: 08-30-2022 End: 03-07-2023 Tobacco smoking status HIIS Unknown if ever smoked [facility] Start: 07-11-2020 None [facility] Start: 07-11-2020 With Family [facility] Start: 2000 Sex Assigned At Female [facility] Start: 08-23-2024 Tobacco smoking stat us HIIS Never smoked tobacco (finding) [facility] Start: 01-09-2025 End: 01-10-2025 Sex Female (finding) [facility] Clinical Notes 10-04-2024 to 03-26-2025 Note Date & Type Note Facility 03-26-2025 Progress note [facility] 11-28-2024 Evaluation note Diagnosis Onset Date Resolution acute November 28, 2024 8:59am Supervision of normal acute November 28 8:59am acute December 27, 2024 9:38am Supervision of normal acute December 27 9:38am Abnormal glucose affecting acute January 13, 2025 8:57am acute January 13 8:57am Supervision of normal acute January 13, 2025 8:57am Abnormal glucose affecting acute January 29 8:25am acute January 29 8:25am Supervision of normal acute January 29, 2025 8:25am Abnormal glucose affecting acute February 12, 2025 9:34am acute February 12 9:34am Supervision of normal acute February 12, 2025 9:34am Yeast infection acute January 9:34am Abnormal glucose affecting acute February 24, 2025 9:32am acute February 24 9:32am Supervision of normal acute February 24, 2025 9:32am Yeast infection acute January 9:32am Abnormal glucose affecting acute March 12 9:53am acute March 12, 2025 9:53am Supervision of normal acute March 12, 2025 9 :53am Yeast infection acute March 12, 2025 9:53am [facility] Work Phone: 1(841) 216-616101-30-2025 Evaluation note* Diagnosis Onset Date Resolution Status Admit Date acute November 28, 2024 8:59am Supervision of normal acute November 28 8:59am acute December 27, 2024 9:38am Supervision of normal acute December 27 9:38am Abnormal glucose affecting acute January 13, 2025 8:57am acute January 13 8:57am Supervision of normal acute January 13, 2025 8:57am Abnormal glucose affecting acute January 29, 2025 8:25am acute January 29 8:25am Supervision of normal acute January 29, 2025 8:25am Abnormal glucose affecting acute February 12, 2025 9:34am acute February 12 9:34am Supervision of normal acute February 12, 2025 9:34am Yeast infection resolved January 9:34am Abnormal glucose affecting acute February 24, 2025 9:32am acute February 24 9:32am Supervision of normal acute February 24, 2025 9:32am Yeast infection resolved January 9:32am Abnormal glucose affecting acute March 12, 2025 9 :53am acute March 12, 2025 9:53am Supervision of normal acute March 12, 2025 9 :53am Yeast infection resolved March 12, 2025 9:53am Abnormal glucose affecting acute March 20, 2025 2 :54pm acute March 20, 2025 2:54pm Supervision of normal acute March 20, 2025 2 :54pm Abnormal glucose affecting acute March 26, 2025 9 :28am acute March 26, 2025 9:28am Supervision of normal acute March 26, 2025 9 :28am [facility] Work Phone: 1(573) 653-817112-06-2024 Evaluation note* Diagnosis Onset Date Resolution Status Admit Date acute October 04, 2024 11:52am Supervision of normal acute October 04 11:52am acute November 06, 025 9:51am Supervision of normal acute November 06 9:51am acute November 28, 2024 8:59am Supervision of normal acute November 28 8:59am acute December 27, 2024 9:38am Supervision of normal acute December 27, 025 9:38am [facility] Work Phone: Evaluation note* Diagnosis Onset Date Resolution Status acute Seasonal allergies acute Supervision of normal first acute [facility] Work Phone: Evaluation note* Diagnosis Onset Date Resolution Status acute Seasonal allergies acute Supervision of normal first acute acute Seasonal allergies acute Supervision of normal first acute [facility] Work Phone: Evaluation note* Diagnosis Onset Date Resolution Status acute Seasonal allergies acute Supervision of normal first acute acute Seasonal allergies acute Supervision of normal first acute acute Seasonal allergies acute Supervision of normal first acute [facility] Work Phone: Evaluation note* Diagnosis Onset Date Resolution Status acute Seasonal allergies acute Supervision of normal first acute acute Seasonal allergies acute Supervision of normal first acute acute Seasonal allergies acute Supervision of normal first acute acute Seasonal allergies acute Supervision of normal first acute acute Supervision of normal first acute [facility] Work Phone: Evaluation note* Diagnosis Onset Date Resolution Status acute Seasonal allergies acute Supervision of normal first acute acute Seasonal allergies acute Supervision of normal first acute acute Supervision of normal first acute acute Seasonal allergies acute Supervision of normal first acute acute Seasonal allergies acute Supervision of normal first acute acute Seasonal allergies acute Supervision of normal first acute acute Seasonal allergies acute Supervision of normal first acute [facility] Work Phone: Progress note Author Jayshree Garza [facility] Note Date/Time March 26, 2025 9:50a m [facility] [address] [place] [address], [address] [place] [address] OFFICE VISIT Date of Service: 03/26/25 MR#: [id number] Acct: [id number] Name: DELPHINE SHAH Rep #: [id number] : 2000 Provider: ULISSES Garza Age/Sex: 25/F Location: [facility] Status: Signed Intake Vital Signs 02/24/25 09:39 03/20/25 15:00 03/26/25 09:29 03/26/25 09:34 Height 5 ft 4 in 5 ft 4 in 5 ft 4 in 5 ft 4 in Weight: 157 lb 6 oz BMI 27.0 BP 105/72 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 Is patient in pain?: No Allergies No Known Allergies Allergy (Verified 03/26/25 09:29) Medications ?Medication ?Instructions ?Recorded ?Confirmed ?Type vitamins no.163-iron tab PO 08/18/22 03/26/25 History bis-gly 20 mg-folate no.10 1 mg tablet (PNV Tabs 20-1) esomeprazole magnesium 20 mg 20 mg PO DAILY 09/29/22 0 03/26/25 History capsule,delayed release miconazole nitrate 2 % vaginal 1 appful vaginal QHS 7 days #45 01/29/25 03/26/25 Rx cream grams Last Menstrual Period: 06/26/24 Zika: Zika virus screening: Negative : No PFSH PFSH Medical History Normal course Vaginal delivery Family hx of colon cancer Surgical History History of tonsillectomy and adenoidectomy Hx of wisdom tooth extraction Family History Grandfather Colon cancer, Onset Age: 78 Father Hyperlipidemia Social History adopted: No household members: spouse and children housing: house number of children: 2 current occupational status: unemployed current occupation: [employer] current occupational exposures/hazards: No pets and animals: Yes pets and animals: dog(s) history of recent travel: No sexually active: Yes Smoking Status: Never smoker alcohol intake: never substance use type: does not use well-balanced diet: daily or most days caffeine: Yes Type: coffee Number of servings: 1 eating out: rarely or never during the past year weight has: remained stable what type of physical activity do you participate in: walking frequency: 1-2 times per week duration: 30-45 minutes/day melisa/anabaptist: [employer] seatbelt use: always do you feel safe at home: Yes additional social history: : Maksim - Omari History 2 Elective abortions Hx Para 1 Spontaneous abortions Hx # Term Pregnancies 1 Ectopic pregnancies Hx # Pregnancies Multiple births # of living children 1 Past Pregnancies Del. Date Name GA/Weeks Outcome Route Bth Weight Gen Labor Lgth Anesthesia Del Locatn Provider FOB 04/07/23 [place] 40 live - full term 7lbs 15oz Male e pidural [facility] Sagrario Felixelvaregine Schaeffer Delivery Date: 04/07/23 Last Updated by: Jeanne Ramirez see problem list for complications, and SM IAL 40 boy [place]. HPI 39 wk ob Details: DELPHINE SHAH is a 25 year old who presents for routine OB visit. OB Visit TAWANNA Calculator Estimated Delivery Date Method Current WG Current Estimate 04/02/25 LMP (Certain) 39w 0d Other Estimates 04/02/25 Ultrasound #1 39w 0d Expected Delivery Route/Plan Labor Preferences- CB/BF classes: [] labor support person: [] labor intervention preferences: [] pain management options preferred: [] cut cord/dad catch: [] : [] PP control planned: [] discussed possible routes of delivery and associated risks: [] special requests: [] Specific Issue/Plans Covid status: [] Flu vaccine: [] Tdap vaccine: [] Rhogam: [] LARC form signed: [] Problem list reviewed and updated with the most current plan of care details and appropriate orders placed. Relevant counseling for the gestational age provided. Continue routine care and follow up unless otherwise noted in visit notes/problem list details Initial Weight: 119 lb Date -?-?-?-?-?-?-?-?-?-?-?-?- EGA Weight BP Urine Prot -?-?-?-?-?-?-?-?-?-?-?-?- Glucose FHR FuHt Pres Dilation -?-?-?-?--?-?-?-?-?-?-?-?- Effaced St Visit Note 08/29/24 -?-?-?-?-?-?-?-?-?-?-?-?- 9w 1d 119 lb (+0 oz) 116/78 -?-?-?-?-?-?-?-?-?-?-?-?- 171 -?-?-?-?-?-?-?-?-?-?-?-?- KW- CRL cons wit h dates. Declines NIPT. 10/04/24 -?-?-?-?-?-?-?-?-?-?-?-?- 14w 2d 124 lb 8 oz (+5 lb 8 oz) 116/78 Negative -?-?-?-?-?-?-?-?-?-?-?-?- Negative 147 -?-?-?--?-?-?-?-?-?-?-?-?- KW- no vb/crampi ng. US ordered. movement and fht with US today 11/06/24 -?-?-?-?-?-?-?-?-?-?-?-?- 19w 0d 135 lb 8 oz (+16 lb 8 oz) 110/73 Negative -?-?-?-?-?-?-?-?-?-?-?-?- Negative 145 -?-?-?-?-?-?-?-?-?-?-?-?- KW- no vb/lof/ct x. good fm. US scheduled. 11/28/24 -?-?-?-?-?-?-?-?-?-?-?-?- 22w 1d 139 lb 8 oz (+20 lb 8 oz) 106/71 Negative -?-?-?-?-?-?-?-?-?-?-?-?- Negative 135 -?-?-?-?-?-?-?-?-?-?-?-?- .SM- no vb lof g ood fm nore uglar ctx, has vaginal yeast infection- will give terazole cream 12/27/24 -?-?-?-?-?-?-?-?-?-?-?-?- 26w 2d 144 lb (+25 lb) 109/76 Negative -?-?-?-?-?-?-?-?-?-?-?-?- Negative 138 26 -?-?-?-?-?-?-?-?-?-?-?-?- LC- no vb/ctx/lo f. increased vaginal d/c. speculum exam with thick green curdy discharge. culture collected. likely yeast. desires to start on monistat 7 otc. 01/13/25 -?-?-?-?-?-?-?-?-?-?-?-?- 28w 5d 147 lb 4 oz (+28 lb 4 oz) 114/77 Negative -?-?-?-?-?-?-?-?-?-?-?-?- Negative 130 29 Cephalic -?-?-?-?-?-?-?-?-?-?-?-?- JV- no lof, vagi nal bleeding, or dec fm. we discussed protein rich foods at bedtime. wants to do the rest of her visits at [facility] if possible. 01/29/25 -?-?-?-?-?-?-?-?-?-?-?-?- 31w 0d 150 lb 4 oz (+31 lb 4 oz) 107/73 Negative -?-?-?-?-?-?-?-?-?-?-?-?- Negative 135 31 -?-?-?-?-?-?-?-?-?-?-?-?- KW- no vb/lof/ct x. good fm. doing well but struggling with yeast infections. Monistat helps but does not totally take away. rx sent to pharmacy. 02/12/25 -?-?-?-?-?-?-?-?-?-?-?-?- 33w 0d 152 lb 2 oz (+33 lb 2 oz) 102/68 Negative -?-?-?-?-?-?-?-?-?-?-?-?- Negative 130 33 -?-?-?-?-?-?-?-?-?-?-?-?- KW- no vb/lof/ct x. good fm. no concerns today 02/24/25 -?-?-?-?-?-?-?-?-?-?-?-?- 34w 5d 151 lb 6 oz (+32 lb 6 oz) 111/75 Negative -?-?-?-?-?-?-?-?-?-?-?-?- Negative 135 35 -?-?-?-?-?-?-?-?-?-?-?-?- KW- no vb/lof/ct x. good fm. GBS next week. 03/12/25 -?-?-?-?-?-?-?-?-?-?-?-?- 37w 0d 152 lb 8 oz (+33 lb 8 oz) 104/72 Negative -?-?-?-?-?-?-?-?-?-?-?-?- Negative 130 37 Cephalic 1 -?-?-?-?-?-?-?-?-?-?-?-?- 60 -2 KW- no vb/ lof/ctx. good fm. GBS this week. 03/20/25 -?-?-?-?-?-?-?-?-?-?-?-?- 38w 1d 156 lb 2 oz (+37 lb 2 oz) 113/78 Negative -?-?-?-?-?-?-?-?--?-?-?-?- Negative 125 37 Cephalic -?-?-?-?-?-?-?-?-?-?-?-?- SM- no vb lof go od fm n oreuglar ctx 03/26/25 -?-?-?-?-?-?-?-?-?-?-?-?- 39w 0d 157 lb 6 oz (+38 lb 6 oz) 105/72 Negative -?-?-?-?-?-?-?-?-?-?-?-?- Negative 138 38 Cephalic 2 .5 -?-?-?-?-?-?-?-?-?-?-?-?- 70 -2 KW- no vb/ lof/regular ctx. good fm. requesting membrane sweep. ACOG First Trimester First Trimester: Desire for , Alcohol, Tobacco Cessation, Illicit/Recreational Drug/Substance Use, Intimate Partner Violence, Barriers to care, Unstable Housing, Communication Barriers, Environmental/Work Hazards, Anticipated Course of Care, Toxoplasmosis Precations, Use of Any medications, Sexual activity, Exercise, Dental Care, Sauna/Hot tub use, Seat Belt use, Childbirth classes/Hospital facilities, Travel, Indications for Ultrasound and Screening for Aneuploidy; Discussed Second Trimester Second Trimester: Signs and Symptoms of Labor, Selecting a care provider, Reproductive Life Planning & Contreception, Care Planning, Depression/Anxiety and Intimate Partner Violence; Discussed Tobacco Cessation Third Trimester Third Trimester: Pain Management Plans, Labor support person(s), Immediate Larc, Circumcision preference, Movement Monitoring, Signs and Symptoms of Preeclampsia, Labor Signs, Cervical Ripening/Labor Induction Counseling, [place] Education and Depression; Discussed Trial of Labor after Counseling ROS Const Reports system reviewed and no additional complaints, except as documented Eyes Reports system reviewed and no additional complaints, except as documented ENT Reports system reviewed and no additional complaints, except as documented Card Reports system reviewed and no additional complaints, except as documented Resp Reports system reviewed and no additional complaints, except as documented GI Reports system reviewed and no additional complaints, except as documented, Denies nausea and Denies vomiting Reports system reviewed and no additional complaints, except as documented Musc Reports system reviewed and no additional complaints, except as documented Skin/Breast Reports system reviewed and no additional complaints, except as documented Neuro Yes system reviewed and no additional complaints, except as documented Psych Reports system reviewed and no additional complaints, except as documented Endo Reports system reviewed and no additional complaints, except as documented Oleg/Lymph Reports system reviewed and no additional complaints, except as documented Aller/Immun Reports system reviewed and no additional complaints, except as documented Exam Const General: cooperative, healthy appearing and no acute distress Orientation: alert, awake and oriented x3 Neck Neck: normal visual inspection and full ROM Resp Effort & Inspection: normal respiratory effort, able to speak in complete sentences and symmetric chest movement GI Inspection: normal to inspection Palpation: soft and other Other: gravid Skin General: no rashes or lesions noted Neuro General: patient alert, patient awake and patient oriented x3 Cognition: normal cognition Speech: speech normal Gait: normal gait Motor: muscle tone normal throughout Extrem General: normal to inspection and full ROM Psych Appearance: grossly normal Mental Status: mental status grossly normal Mood: congruent mood Affect: normal affect Speech and Movement: speech and movement normal Attitude: cooperative Thought Process: normal Thought Content: normal Judgment: judgment good Results POC Urinalysis 2 Dip (Clinic) Office Urine Glucose Negative Last Edit by Shikha Torres on 03/26/25 09:35 Office Urine Protein Negative Last Edit by Shikha Torres on 03/26/25 09:35 Coding Level of Care Code OB Routine Diagnoses Abnormal glucose affecting O99.810 Supervision of normal Z34.90 39 weeks gestation of Z3A.39 Weeks of gestation: 39 weeks Assessment and Plan Assessment and Plan (1) Abnormal glucose affecting : Status: Acute Comment: passed 3 hour glucose (2) Supervision of normal : Status: Acute Comment: PRR, , TAWANNA 04/02/25, surprise PC: [place], : Maksim (3) : Status: Acute Qualifiers: Weeks of gestation: 39 weeks Qualified Code(s): Z3A.39 - 39 weeks gestation of Comment: GBS neg, discussed genetic/carrier testing - undecided, normal anatomy Plan Details Additional Comments: ACOG trimester education reviewed and updated. see problem list details for updated plan management information and see below for orders placed at this visit. GA appropriate handout given. 03/26/25 0950 <Electronically signed by Jayshree bryant CNM> Date _ Jayshree Garza CNM Cosigner Signature: Date (if applicable) CC: ~ [facility] Work Phone: Reason for referral (narrative)No reason for referral information availableWPomerene Hospital Work Phone: Chief Complaint and Reason for Visit Chief Complaint NOB LMP 06/26 Reason for Visit Seasonal allergies Supervision of normal first Chief Complaint NOB LMP 06/26 13 WK OB Reason for Visit Seasonal allergies Supervision of normal first Seasonal allergies Supervision of normal first Chief Complaint NOB LMP 06/26 13 WK OB 18 WK OB Reason for Visit Seasonal allergies Supervision of normal first Seasonal allergies Supervision of normal first Seasonal allergies Supervision of normal first Chief Complaint 13 WK OB 18 WK OB 22 WK OB 26 WK OB 28 WK OB/GLUCOSE Reason for Visit Seasonal allergies Supervision of normal first Seasonal allergies Supervision of normal first Seasonal allergies Supervision of normal first Seasonal allergies Supervision of normal first Supervision of normal first Chief Complaint 22 WK OB 26 WK OB 28 WK OB/GLUCOSE 30 WK OB 32 WK OB 34 WEEK OB CHECK 36 WK OB Reason for Visit Seasonal allergies Supervision of normal first Seasonal allergies Supervision of normal first Supervision of normal first Seasonal allergies Supervision of normal first Seasonal allergies Supervision of normal first Seasonal allergies Supervision of normal first Seasonal allergies Supervision of normal first Chief Complaint Admit Date 13wk OB October 04, 2024 1 1:52am 17 WK OB *pt req this date/time November 06, 2024 9:51am ANATOMY November 13, 2024 1 1:53am 21 WK OB November 28, 2024 8 :59am 25 WK OB December 27, 2024 9:38am ABN GLUCOSE AFFECVTING DIABETES December 31t h2024 7:58am Reason for Visit Admit Date October 04, 2024 1 1:52am Supervision of normal October 04, 2024 11:52am November 06, 2024 9: 51am Supervision of normal November 06, 2024 9:51am November 28, 2024 8 :59am Supervision of normal November 28, 2024 8:59am December 27, 2024 9:38am Supervision of normal December 27, 2024 9:38am Chief Complaint Admit Date ANATOMY November 13, 2024 1 1:53am 21 WK OB November 28, 2024 8 :59am 25 WK OB December 27, 2024 9:38am ABN GLUCOSE AFFECVTING DIABETES December 31t h2024 7:58am 28 WK OB/GLUCOSE January 13, 2025 8:5 7am 30 WK OB January 29, 2025 8:25 am 32 wk ob February 12, 2025 9:3 4am 34 wk ob February 24, 2025 9:3 2am 36 wk ob March 12, 2025 9:53a m Reason for Visit Admit Date November 28, 2024 8 :59am Supervision of normal November 28, 2024 8:59am December 27, 2024 9:38am Supervision of normal December 27, 2024 9:38am Abnormal glucose affecting Mar 2024 8:57am January 13, 2025 8:5 7am Supervision of normal January 132024 8:57am Abnormal glucose affecting Apr 2024 8:25am January 29, 2025 8:25 am Supervision of normal January 8:25am Abnormal glucose affecting Apr 2024 9:34am February 12, 2025 9:3 4am Supervision of normal February 122024 9:34am Yeast infection February 12, 2025 9:3 4am Abnormal glucose affecting Apr 2024 9:32am February 24, 2025 9:3 2am Supervision of normal February 242024 9:32am Yeast infection February 24, 2025 9:3 2am Abnormal glucose affecting March 12, 2025 9:53am March 12, 2025 9:53a m Supervision of normal February 9:53am Yeast infection March 12, 2025 9:53a m Chief Complaint Admit Date 21 WK OB November 28, 2024 8 :59am 25 WK OB December 27, 2024 9:38am ABN GLUCOSE AFFECVTING DIABETES December 7:58am 28 WK OB/GLUCOSE January 13, 2025 8:5 7am 30 WK OB January 29, 2025 8:25 am 32 wk ob February 12, 2025 9:3 4am 34 wk ob February 24, 2025 9:3 2am 36 wk ob March 12, 2025 9:53a m Chief Complaint Admit Date 21 WK OB November 28, 2024 8 :59am 25 WK OB December 27, 2024 9:38am ABN GLUCOSE AFFECVTING DIABETES December 7:58am 28 WK OB/GLUCOSE January 13, 2025 8:5 7am 30 WK OB January 29, 2025 8:25 am 32 wk ob February 12, 2025 9:3 4am 34 wk ob February 24, 2025 9:3 2am 36 wk ob March 12, 2025 9:53a m 38 wk ob March 20, 2025 2:54p m 39 wk ob March 26, 2025 9:28a m Reason for Visit Admit Date November 28, 2024 8 :59am Supervision of normal November 28, 2024 8:59am December 27, 2024 9:38am Supervision of normal December 27, 2024 9:38am Abnormal glucose affecting Mar 2024 8:57am January 13, 2025 8:5 7am Supervision of normal January 132024 8:57am Abnormal glucose affecting Apr 2024 8:25am January 29, 2025 8:25 am Supervision of normal January 8:25am Abnormal glucose affecting Apr 2024 9:34am February 12, 2025 9:3 4am Supervision of normal February 122024 9:34am Yeast infection February 12, 2025 9:3 4am Abnormal glucose affecting Apr 2024 9:32am February 24, 2025 9:3 2am Supervision of normal February 242024 9:32am Yeast infection February 24, 2025 9:3 2am Abnormal glucose affecting March 12, 2025 9:53am March 12, 2025 9:53a m Supervision of normal February 9:53am Yeast infection March 12, 2025 9:53a m Abnormal glucose affecting March 20, 2025 2:54pm March 20, 2025 2:54p m Supervision of normal February 2:54pm Abnormal glucose affecting March 26, 2025 9:28am March 26, 2025 9:28a m Supervision of normal February 9:28am Family History No Family History Records Found Relationship Condition Age at Onset Recorded Date/T michael grandfather Malignant neoplasm of colon 78 Relationship Condition Age at Onset Recorded Date/T michael grandfather Malignant neoplasm of colon 78 father Hyperlipidemia Unknown Advance Directives No Advanced Directives Records Found Advance Directive Response Recorded Date/ Time Living Will No July 15, 2020 12:56pm Power of Sieve Repairer No June 12:56pm Advance Directive Response Recorded Date/ Time Living Will No July 15, 2020 1:56pm Power of Sieve Repairer No June 1:56pm Advance Directive Response Recorded Date/ Time Living Will No April 06, 2023 6 :22pm Power of Sieve Repairer No April 06, 2023 6:22pm Advance Directive Response Recorded Date/ Time Living Will No April 06, 2023 6 :22pm Do you have a [facility] Power of Sieve Repairer? No April 06, 2023 6:22pm Summary Purpose Additional Source Comments Goals (unrecognized section and content) Goals may be documented in a n alternate sectionGoals may be documented in an alternate sectionGoals may be documented in an alternate sectionGoals may be documented in an alternate sectionGoals may be documented in an alternate sectionGoals may be documented in an alternate sectionGoals may be documented in an alternate sectionGoals may be documented in an alternate sectionGoals may be documented in an alternate sectionGoals may be documented in an alternate section Care Teams (unrecognized sec tion and content) Team Status: Active Member Role Status Dates Dr. Hemanth Lott MD Primary Care Provider Active Team Status: Inactive Member Role Status Dates Dr. Hemanth Lott MD Primary Care Provider, Referr ing Provider Active Dr. Meenu Hernandez DO Attending Provider Activ e Team Status: Inactive Member Role Status Dates Dr. Hemanth Lott MD Primary Care Provider, Referr ing Provider Active Rebekah Adams CNM Attending Provider Active Team Status: Inactive Member Role Status Dates Dr. Hemanth Lott MD Primary Care Provider, Referr ing Provider Active Jayshree Garza CNM Attending Provider Active Team Status: Inactive Member Role Status Dates Dr. Hemanth Lott MD Primary Care Provider, Referr ing Provider Active Bindu Waters GUM SPRAYER, GUM SPRAYER-C Attending Provider Active Team Status: Inactive Member Role Status Dates Dr. Hemanth Lott MD Primary Care Provider Active Dr. Meenu Hernandez DO Attending Provider, Refe rring Provider Active Team Status: Inactive Member Role Status Dates Dr. Hemanth Lott MD Primary Care Provider Active Dr. Meenu Hernandez DO Attending Provider Activ e Team Status: Inactive Member Role Status Dates Dr. Hemanth Lott MD Primary Care Provider Active Jayshree Garza CNM Attending Provider, Referring Pro vider Active Team Status: Inactive Member Role Status Dates Dr. Hemanth Lott MD Primary Care Provider, Referr ing Provider Active Dr. Sagrario Saenz MD Attending Provider Active Team Status: Inactive Member Role Status Dates Dr. Hemanth Lott MD Primary Care Provider Active Dr. Sagrario Saenz MD Attending Provider, Referr ing Provider Active Team Status: Inactive Member Role Status Dates Dr. Hemanth Lott MD Referring Provider Active Start: October 04, 2024 End: October 04, 2024 Jayshree Garza CNM Attending Provider Active S tart: October 04, 2024 End: October 04, 2024 Team Status: Inactive Member Role Status Dates Jayshree Garza CNM Attending Provider Active S tart: November 06, 2024 End: November 06, 2024 Team Status: Inactive Member Role Status Dates Jayshree Garza CNM Attending Provider Active S tart: November 13, 2024 End: November 13, 2024 Jayshree Garza CNM Referring Provider Active S tart: November 13, 2024 End: November 13, 2024 Dr. Hemanth Lott MD Primary Care Provider Active Start: November 13, 2024 End: November 13, 2024 Team Status: Inactive Member Role Status Dates Dr. Sagrario Saenz MD Attending Provider Active Start: November 28, 2024 End: November 28, 2024 Dr. Hemanth Lott MD Primary Care Provider Active Start: November 28, 2024 End: November 28, 2024 Dr. Hemanth Lott MD Referring Provider Active Start: November 28, 2024 End: November 28, 2024 Team Status: Inactive Member Role Status Dates Rebekah Adams CNM Attending Provider Active Start: December 27, 2024 End: December 27, 2024 Dr. Hemanth Lott MD Primary Care Provider Active Start: December 27, 2024 End: December 27, 2024 Dr. Hemanth Lott MD Referring Provider Active Start: December 27, 2024 End: December 27, 2024 Team Status: Inactive Member Role Status Dates Dr. Hemanth Lott MD Primary Care Provider Active Start: December 27, 2024 End: December 27, 2024 Dr. Sagrario Saenz MD Attending Provider Active Start: December 27, 2024 End: December 27, 2024 Dr. Sagrario Saenz MD Referring Provider Active Start: December 27, 2024 End: December 27, 2024 Team Status: Active Member Role Status Dates Dr. Hemanth Lott MD Primary Care Provider Active Start: December 31, 2024 Rebekah Adams CNM Attending Provider Active Start: December 31, 2024 Rebekah Adams CNM Referring Provider Active Start: December 31, 2024 Team Status: Inactive Member Role Status Dates Dr. Hemanth Lott MD Primary Care Provider Active Start: December 31, 2024 End: December 31, 2024 Rebekah Adams CNM Attending Provider Active Start: December 31, 2024 End: December 31, 2024 Rebekah Adams CNM Referring Provider Active Start: December 31, 2024 End: December 31, 2024 Team Status: Inactive Member Role Status Dates Dr. Meenu Hernandez DO Attending Provider Activ e Start: January 13, 2025 End: January 13, 2025 Dr. Hemanth Lott MD Primary Care Provider Active Start: January 13, 2025 End: January 13, 2025 Dr. Hemanth Lott MD Referring Provider Active Start: January 13, 2025 End: January 13, 2025 Team Status: Inactive Member Role Status Dates Jayshree Garza CNM Attending Provider Active S tart: January 29, 2025 End: January 29, 2025 Dr. Hemanth Lott MD Primary Care Provider Active Start: January 29, 2025 End: January 29, 2025 Dr. Hemanth Lott MD Referring Provider Active Start: January 29, 2025 End: January 29, 2025 Team Status: Inactive Member Role Status Dates Dr. Hemanth Lott MD Primary Care Provider Active Start: February 12, 2025 End: February 12, 2025 Dr. Hemnath Lott MD Referring Provider Active Start: February 12, 2025 End: February 12, 2025 Jayshree Garza CNM Attending Provider Active S tart: February 12, 2025 End: February 12, 2025 Team Status: Inactive Member Role Status Dates Dr. Hemanth Lott MD Primary Care Provider Active Start: February 24, 2025 End: February 24, 2025 Dr. Hemanth Lott MD Referring Provider Active Start: February 24, 2025 End: February 24, 2025 Jayshree Garza CNM Attending Provider Active S tart: February 24, 2025 End: February 24, 2025 Team Status: Inactive Member Role Status Dates Dr. Hemanth Lott MD Primary Care Provider Active Start: March 12, 2025 End: March 12, 2025 Dr. Hemanth Lott MD Referring Provider Active Start: March 12, 2025 End: March 12, 2025 Jayshree Garza CNM Attending Provider Active S tart: March 12, 2025 End: March 12, 2025 Team Status: Inactive Member Role Status Dates Dr. Hemanth Lott MD Primary Care Provider Active Start: March 12, 2025 End: March 12, 2025 Jayshree Garza CNM Attending Provider Active S tart: March 12, 2025 End: March 12, 2025 Jayshree Garza CNM Referring Provider Active S tart: March 12, 2025 End: March 12, 2025 Team Status: Inactive Member Role Status Dates Dr. Hemanth Lott MD Primary Care Provider Active Start: March 20, 2025 End: March 20, 2025 Dr. Hemanth Lott MD Referring Provider Active Start: March 20, 2025 End: March 20, 2025 Dr. Sagrario Saenz MD Attending Provider Active Start: March 20, 2025 End: March 20, 2025 Team Status: Inactive Member Role Status Dates Dr. Hemanth Lott MD Primary Care Provider Active Start: March 26, 2025 End: March 26, 2025 Dr. Hemanth Lott MD Referring Provider Active Start: March 26, 2025 End: March 26, 2025 Jayshree Garza CNM Attending Provider Active S tart: March 26, 2025 End: March 26, 2025 INFORMATION SOURCE (unrecogn ized section and content) DATE CREATED AUTHOR 04/03/2025 [facility] FOR RECORDS PERTAINING TO PATIENTS WHO ARE OR HAVE BEEN ENROLLED IN A CHEMICAL DEPENDENCY/SUBSTANCEABUSE PROGRAM, SOME INFORMATION MAY BE OMITTED. This clinical summary was aggregated from multiple sources. Caution should be exercised in using it in the provision of clinical care. This summary normalizes information from multiple sources, and as a consequence, information in this document may materially change the coding, format and clinical context of patient data. In addition, data may be omitted in some cases. CLINICAL DECISIONS SHOULD BE BASED ON THE PRIMARY CLINICAL RECORDS. [employer] provides no warranty or guarantee of the accuracy or completeness of information in this document.
[2025-04-10] VITALS (10 sets, daily range): BP systolic 101–114; BP diastolic 55–69; PULSE 75–107; RESP 16; TEMP 36.2–36.8; O2SAT 96–97
[2025-04-10] MEDS: Acetaminophen 500 MG Tablet 1000 MG PO ×2 (07:09→17:11)
--- NOTE | 2025-04-10 07:34 | PCM.PN.OB ---
Subjective Subjective Patient doing well without complaints. Tolerating PO. Ambulating and voiding without difficulty. Feeding well. Denies chest pain, shortness of breath, calf pain/swelling, fevers, chills, lightheadedness. Objective Data Objective Data Vital Signs: Vital Signs Temp Pulse Resp BP Pulse Ox O2 Del Method 97.7 F L 86 16 103/57 L 97 Room Air 04/10/25 05:32 04/10/25 05:32 04/10/25 05:32 04/10/25 05:32 04/10/25 05:32 04/10/25 05:32 Oxygen Delivery Method Room Air Weight: 157 lb Body Mass Index (BMI) 26.9 Intake & Output: Intake and Output for Last 24 Hours 04/08/25 04/09/25 04/10/25 23:59 23:59 23:59 Intake Total 250 / 250 Output Total 700 / 700 Balance -450 / -450 Lab / Micro Data 04/09/25 18:05 Labs: Laboratory Results - last 24 hr 04/09/25 17:05: Vag Amniotic Fld Detect Negative 04/09/25 18:05: WBC 10.5, RBC 4.04 L, Hgb 13.0, Hct 38.5, MCV 95.3, MCH 32.2 H, MCHC 33.8, RDW Std Deviation 45.9 H, RDW Coeff of Isab[place] 13.2, Plt Count 192, MPV 11.9, Immature Gran % (Auto) 0.300, Neut % (Auto) 59.1, Lymph % (Auto) 32.1, [place] % (Auto) 7.2, Eos % (Auto) 1.0, Baso % (Auto) 0.3, Absolute Neuts (auto) 6.2, Absolute Lymphs (auto) 3.36, Nucleated RBC % 0, Syphilis Total Ab Nonreactive, Blood Type A POSITIVE, Antibody Screen NEGATIVE ROS Constitutional Constitutional: Reports systems reviewed and no addt'l complaints, except as documented; Denies anorexia or headache(s) Cardiovascular Cardiovascular: Reports systems reviewed and no addt'l complaints, except as documented; Denies dizziness, dyspnea, nausea or tachypnea Respiratory/Chest Respiratory/Chest: Reports systems reviewed and no addt'l complaints, except as documented; Denies cough, dyspnea, shortness of breath at rest or tachypnea Gastrointestinal Gastrointestinal: Reports systems reviewed and no addt'l complaints, except as documented; Denies abdominal pain, constipation or nausea Genitourinary Genitourinary: Reports systems reviewed and no addt'l complaints, except as documented; Denies burning urination, difficulty urinating, dysuria, urinary frequency or urinary incontinence Musculoskeletal Musculoskeletal: Reports systems reviewed and no addt'l complaints, except as documented Integumentary Integumentary: Reports systems reviewed and no addt'l complaints, except as documented Neurologic Neurologic: Reports systems reviewed and no addt'l complaints, except as documented; Denies abnormal speech, dizziness or headache(s) Psychiatric Psychiatric: Reports systems reviewed and no addt'l complaints, except as documented Endocrine Endocrinology: Reports systems reviewed and no addt'l complaints, except as documented Hematologic/Lymphatic Hematologic/Lymphatic: Reports systems reviewed and no addt'l complaints, except as documented Physical Exam Const alert, oriented x3 and no apparent distress Neck full ROM Resp normal respiratory effort, normal air movement and no retractions Effort and Inspection: able to speak in complete sentences and symmetric chest movement GI soft to palpation Bladder / Kidney Exam: bladder normal to palpation Uterus Palpation: uterus fundus firm Extremity normal to inspection and full ROM Psych mental status grossly normal, thought process normal and cooperative Assessment & Plan (1) Vaginal delivery: COMMENT: JV boy PLAN: s/p PPD # 1 1. routine post delivery care 2. breast feeding- support given 3. rh positive 4. rubella immune (2) Abnormal glucose affecting : COMMENT: passed 3 hour glucose (3) Supervision of normal : COMMENT: PRR, , TAWANNA 04/02/25, surprise PC: [place], : [place] (4) : QUALIFIERS: Weeks of gestation: 40 weeks Qualified Code(s): Z3A.40 - 40 weeks gestation of COMMENT: GBS neg, discussed genetic/carrier testing - undecided, normal anatomy Charges/Coding Multi Select Codes Urinary/Genital Urinary/Genital CPT Codes: No Charge
[2025-04-11] VITALS (7 sets, daily range): BP systolic 104–129; BP diastolic 55–80; PULSE 79–108; RESP 16–18; TEMP 36.4–36.7; O2SAT 96–98
[2025-04-11] MEDS: Acetaminophen 500 MG Tablet 1000 MG PO (02:21)
--- NOTE | 2025-04-11 07:48 | PCM.PN.CNM ---
Subjective Subjective Patient doing well without complaints. Tolerating PO. Ambulating and voiding without difficulty. Feeding well. Denies chest pain, shortness of breath, calf pain/swelling, fevers, chills, lightheadedness. Objective Data Objective Data Vital Signs: Vital Signs Temp Pulse Resp BP Pulse Ox O2 Del Method 97.6 F L 88 16 104/55 L 96 Room Air 04/11/25 02:00 04/11/25 07:41 04/11/25 02:00 04/11/25 07:38 04/11/25 07:41 04/11/25 02:00 Oxygen Delivery Method Room Air Weight: 157 lb Body Mass Index (BMI) 26.9 Intake & Output: Intake and Output for Last 24 Hours 04/09/25 04/10/25 04/11/25 23:59 23:59 23:59 Intake Total 250 / 250 Output Total 700 / 700 Balance -450 / -450 Lab / Micro Data 04/09/25 18:05 Physical Exam Const alert, oriented x3 and no apparent distress Neck full ROM Resp normal respiratory effort, normal air movement and no retractions Effort and Inspection: able to speak in complete sentences and symmetric chest movement GI soft to palpation Bladder / Kidney Exam: bladder normal to palpation Uterus Palpation: uterus fundus firm Extremity normal to inspection and full ROM Psych mental status grossly normal, thought process normal and cooperative Assessment & Plan (1) Vaginal delivery: COMMENT: SIRISHA boy PLAN: s/p PPD # 2 1. routine post delivery care 2. breast feeding- support given 3. rh positive 4. rubella immune 5. d/c home today
== END 2025-04-11 10:20 | disposition home or self-care (01) | DRG 807 ==
LOC: WPOUT 17:57 → WP 17:57
PROVIDERS: Admitting Provider Obstetrics & Gynecology; PCP Family Medicine; Referring Provider Obstetrics & Gynecology; Visit Provider Obstetrics & Gynecology
DX: O48.0 Post-term pregnancy (principal); Z37.0 Single live birth; O99.814 Abnormal glucose complicating childbirth; O69.81X0 Labor and delivery complicated by cord around neck, without compression, not applicable or unspecified; Z3A.41 41 weeks gestation of pregnancy; O70.0 First degree perineal laceration during delivery
CPT/HCPCS: 59025; 59050; 84112; 85025; 86780; 86850; 86900; 86901; 99221; A4216; G0378